=== PATIENT | female | born 1935 | race African-American/Black ===

== ENCOUNTER 2016-07-11 14:35 | Inpatient (IN) ==
[2016-07-11] MEDS ORDERED: SODIUM CHLORIDE 0.9% 500 ML IV STA (17:01)
--- NOTE | 2016-07-11 17:02 | Emergency Department Note ---
Ryley Jones Manpreet, am scribing for, and in the presence of, Humberto Devine MD 16:55. Nilson Jones Charles R, MD, personally performed the services described in this documentation, ascribed by Rashad Hedrick in my presence, and it is both accurate and complete 702 . Arrival - Arrival Chief Complaint: Altered Mental Status Stated Complaint: AMS, FTT, LETHARGIC ED Nursing Triage Note: PT SENT BY EMS FROM [facility] FOR EVALUATION OF ALTERED LOC, FAILURE TO THRIVE, AND LETHARGY. PT IS ON HOSPICE AT [facility], BUT REMAINS A FULL CODE. PT IS TAKING NOTHING BY MOUTH BUT FAMILY REQUESTS NO PEG. Mode of Arrival: Stretcher Source: EMS, Old Records Reviewed Time Seen by Provider: 07/11/16 16:01 - History of Present Illness HPI Narrative: Pt is an 80 y/o female, with PMHx of NIDDM and HTN, who was brought to ED via EMS for further evaluation for AMS and being lethargic. Pt lives at [facility] and is on hospice service. According to EMS Pt has a failure to thrive but remains full code. Pt is not taking anything by mouth but requests no PEG. Pt was alert but failed to open her mouth for examination. No other pains/ complaints reported to ED. Onset (ago): hour(s) Consistency: constant Severity: moderate Severity scale (1-10): 4 Allergies/Adverse Reactions: Allergies Allergy/AdvReac Type Severity Reaction Status Date / Time benztropine [From Cogentin] Allergy Unknown/Unable Verified 07/11/16 15:01 to obtain egg Allergy Unknown/Unable Verified 07/11/16 15:01 to obtain Home Medications: Home Medications Medication Instructions Recorded Confirmed Type Donepezil [Aricept] 10 mg PO BEDTIME 07/19/14 03/09/16 History Ferrous Sulfate 325 mg PO BID 07/19/14 03/09/16 History Memantine [Namenda] 10 mg PO BID 07/19/14 03/09/16 History Glucagon 1 mg IM PRN PRN 08/26/15 03/09/16 History Promethazine HCl [Phenergan] 25 mg PO Q8HR PRN 08/26/15 03/09/16 History Divalproex Sodium 250 mg PO TID 01/26/16 03/09/16 History Lactulose 30 ml PO BID 01/26/16 03/09/16 History Lisinopril 5 mg PO DAILY 01/26/16 03/09/16 History amLODIPine [Norvasc] 5 mg PO DAILY 01/26/16 03/09/16 History Aspirin EC Tab 325 mg PO DAILY 03/09/16 03/09/16 History Ipratropium/Albuterol Sulfate 3 ml INH QID 03/09/16 03/09/16 History [Iprat-Albut 0.5-3(2.5) mg/3 ml] Levothyroxine Sodium 100 mcg PO DAILY 03/09/16 03/09/16 History Megestrol Liquid [Megace Liquid] 400 mg PO DAILY 03/09/16 03/09/16 History Tramadol HCl [Tramadol Tab] 50 mg PO QID PRN 03/09/16 03/09/16 History Albuterol/Ipratropium Neb [Duoneb] 3 ml RESP TX RT Q6H nebulization 03/27/16 Rx solution Bacitracin Oint 1 applic TOP DAILY ointment 03/27/16 Rx Calcium (Citrate) [Citracal] 400 mg PO BID tablet 03/27/16 Rx Clindamycin Inj [Cleocin Inj] 600 mg IV Q8H premix 03/27/16 Rx Enoxaparin [Lovenox] 30 mg SUBCUT Q24H syringe 03/27/16 Rx Glucagon 1 mg IM PRN PRN #0 vial 03/27/16 Rx Haloperidol Inj [Haldol Inj] 2 mg IV Q4HR PRN #0 amp 03/27/16 Rx Levothyroxine Inj [Synthroid Inj] 50 mcg IV DAILY@0700 vial 03/27/16 Rx Metoprolol Tartrate Inj [Lopressor 5 mg IV Q4H vial 03/27/16 Rx Inj] Metoprolol Tartrate Tab [Lopressor 25 mg PO BID tablet 03/27/16 Rx Tab] Ondansetron Inj [Zofran Inj] 4 mg IV Q4H PRN #0 vial 03/27/16 Rx Pentoxifylline [TRENtal] 400 mg PO TID tablet 03/27/16 Rx Potassium Chloride Glen 10 meq IV .PER PROTOCOL PRN #0 03/27/16 Rx premix Skin Healing Oint (Aquaphor) 1 applic TOP PRN PRN #0 ointment 03/27/16 Rx [Aquaphor] Valproic Acid Inj [Depacon Inj] 250 mg IV Q8H vial 03/27/16 Rx amLODIPine [Norvasc] 5 mg PO DAILY tablet 03/27/16 Rx cloNIDine 0.2 MG/24 HR PATCH 1 patch TRANSDERM Q7DAY patch 03/27/16 Rx [Llpekuei-TDJ-1 Patch] oxyCODONE/ACETAMINOPHEN 5-325 1 tablet PO Q6H PRN #0 tablet 03/27/16 Rx [Percocet 5-325] Review of System - Review of System 12 point system: reviewed and no additional remarkable complaints except as stated - Review of System Constitutional: Present: weakness. Absent: chills, diaphoresis, fever Respiratory: Absent: cough, respiratory distress Cardiovascular: Absent: chest pain Gastrointestinal: Absent: abdominal pain, nausea Neurological: Present: confusion. Absent: headache, weakness Medical,Surgical,& Family Hx - Medical History Cardio: History of: Hypertension Psychological: History of: Bipolar Disorder Neurology: History of: Peripheral Neuropathy Endocrine: History of: Diabetes Mellitus (NIDDM) Respiratory: No history of: Asthma, Bronchitis, COPD, Intubation, Obstructive Sleep Apnea , Pulmonary Embolism, Pulmonary Hypertension, Lung Cancer Renal: History of: Renal Problems (past episode of renal failure from dehydration) Musculoskeletal: History of: Musculoskeletal Problems (weakness; bed bound patient) Hematology: History of: Anemia Other: History of: Skin Problems (skin wounds to feet) - Surgical History Cardiac Surgeries: Patient Denies: Vascular Access Devices Thoracic Surgeries: Patient denies;: Organ Transplant, Lobectomy Neurologic Surgeries: Patient denies: Neurologic Surgery Abdominal Surgeries: Patient denies: Hernia Repair - Family History Family History: Reports;: Family Diabetes, Family Hypertension - Social History Smoking Status: Unknown if ever smoked Frequency of Alcohol Use: None Type of Drug Use: None Exam Vital Signs: Vital Signs Temperature 97.1 F L 07/11/16 14:35 Pulse Rate 89 07/11/16 18:30 Respiratory Rate 16 07/11/16 18:30 Blood Pressure 100/74 07/11/16 18:30 O2 Sat by Pulse Oximetry 100 07/11/16 18:30 - General General appearance: alert - Head Head exam: Present: atraumatic, other (Biateral temporal wasting). Absent: normocephalic, normal inspection - Eye Eye exam: Present: normal appearance, PERRL, EOMI - ENT ENT exam: Present: normal exam, normal oropharynx - Neck Neck exam: Present: normal inspection, full ROM. Absent: trachea midline, thyromegaly - Chest Chest inspection: Present: normal inspection, symmetric chest wall rise - Respiratory Respiratory exam: Present: rhonchi. Absent: normal lung sounds bilaterally - Cardiovascular Cardiovascular exam: Present: normal rhythm, tachycardia, normal heart sounds. Absent: murmur, rubs, gallop - Abdominal Exam Abdominal exam: Present: soft. Absent: distention, tenderness, guarding - Extremities Exam Extremities exam: Present: calf tenderness, other (General atrophy). Absent: normal inspection - Back Exam Back exam: Present: normal inspection, full ROM. Absent: tenderness - Neurological Exam Neurological exam: Present: alert. Absent: oriented X3, CN II-XII intact - Skin Skin exam: Present: dry, intact, other (Poor skin turgor) Course - Consultations Consultation #1: Hospitalist will admit patient Time: 18:58 Results - Labs CBC & BMP: 07/11/16 16:23 07/11/16 16:23 Lab Results: I have reviewed the patients labs Labs: Laboratory Tests 07/11/16 07/11/16 07/11/16 16:23 16:23 16:23 WBC 13.4 H MCHC 29.4 L RDW 17.9 H MPV 12.9 H Neut # (Auto) 8.1 H [place] # (Auto) 1.2 H Segmented Neutrophils 46 L Band Neutrophils 11 H INR 1.2 PT Patient/Control Mix 12.5 Sodium 171 H* Potassium 6.1 H* Chloride 130 H Anion Gap 15.1 H BUN 148 H Creatinine 5.10 H BUN/Creatinine Ratio 29.00 H Glucose 241 H Calculated Osmolality 392.1 H Lactic Acid Calcium 12.1 H Magnesium 3.6 H ALT < 9 L Alkaline Phosphatase 121 H Globulin 4.2 H Albumin/Globulin Ratio 0.8 L Urine pH Ur Specific [place] Urine Protein Urine Ketones Urine Urobilinogen Urine RBC Urine WBC Hyaline Casts 07/11/16 07/11/16 16:23 17:07 WBC MCHC RDW MPV Neut # (Auto) [place] # (Auto) Segmented Neutrophils Band Neutrophils INR PT Patient/Control Mix Sodium Potassium Chloride Anion Gap BUN Creatinine BUN/Creatinine Ratio Glucose Calculated Osmolality Lactic Acid 4.6 H Calcium Magnesium ALT Alkaline Phosphatase Globulin Albumin/Globulin Ratio Urine pH 5.0 Ur Specific [place] 1.021 Urine Protein 30 Urine Ketones 5 Urine Urobilinogen < 2.0 H Urine RBC 1 Urine WBC 2 Hyaline Casts 3 - Diagnostic Findings Procedure: Chest x-ray: report reviewed by me (1. Appearance of chest compatible with improved congestive heart failure and pulmonary edema. No active process is clearly demonstrated.), CT: report reviewed by me (CT Head w/ o IV Con: [address] evidence of acute intracranial pathology. Interval progression of cerebral atrophy is suggested when compared to the prior study.) Critical Care Time Critical Care Time: Yes Total Critical Care Time: 60 Disposition Clinical Impression: Altered mental status, Dementia, Hyperkalemia, Diabetes, PVD (peripheral vascular disease), Acute dehydration, Hypernatremia, Debility, Acute renal failure, Failure to thrive, Anorexia, Diabetic foot ulcers Case discussed with: patient Disposition: Still a Patient Condition: Critical Time of Disposition: 18:58
[2016-07-11 17:11] LABS: Basophils % 0.1 % (0.0-0.8); Hemoglobin 12.6 GM/DL (12.0-16.0); Mean Platelet Volume 12.9 FL (9.6-12.0); Red Cell Distribution Width 17.9 % (9.3-17.3); White Blood Count 13.4 T/CUMM (4-12)
[2016-07-11 17:15] LABS: INR 1.2; PT Patient Result 12.5 SECS
--- NOTE | 2016-07-11 17:23 | CT Report ---
CT head/brain wo con Indication: Altered mental status Comparison: Head CT 07/19/2014. Technique: CT of the brain was performed without administration of intravenous contrast. The CT examination was performed using one or more of the following dose reduction techniques: Automatic exposure control, adjustment of the mA and kV according to patient size, use of acute or iterative reconstruction techniques. Findings: There is no evidence of acute intracranial mass, hemorrhage, or infarction. Generalized cerebral atrophy is present. Areas of decreased attenuation within the periventricular white matter and cerebral white matter are present which could be compatible with microvascular ischemia. The basal cisterns are patent. No significant abnormality is demonstrated to involve the posterior fossa or cerebellum. Orbits and globes demonstrate no evidence of significant pathology. The paranasal sinuses are clear. No significant abnormality is demonstrated to involve the mastoid air cells. The calvarium and overlying soft tissues demonstrate no evidence of acute pathology. Impression: 1. No CT evidence of acute intracranial pathology. Interval progression of cerebral atrophy is suggested when compared to the prior study. 07/11/2016 5:20 PM PROCEDURE INTERPRETED AT [facility] DEPARTMENT OF RADIOLOGY Final Report Signed by: Dr. Nacho Green
[2016-07-11 17:24] LABS: Alanine Aminotransferase < 9 U/L (13-56); Albumin 3.7 G/DL (3.4-5.0); Alkaline Phosphatase 121 U/L (45-117); Aspartate Amino Transferase 22 U/L (0-37); Bilirubin,Total < 0.39 MG/DL (0.2-1.0); Blood Urea Nitrogen 148 MG/DL (7-18); Calcium 12.1 MG/DL (8.5-10.1); Glucose 241 MG/DL (74-106); Magnesium 3.6 MG/DL (1.8-2.4); Osmolality,Calculated 392.1 MOS/KG (273-304); Total Protein 7.9 G/DL (6.4-8.3); Troponin I Only 0.021 NG/ML (0.00-0.045)
--- NOTE | 2016-07-11 17:25 | XRay Report ---
XR chest 1V portable Indication: Altered mental status. Comparison: Chest x-ray 03/27/2016 Technique: Portable AP chest was performed. Findings: The heart size appears within normal limits. Pulmonary vasculature demonstrates no specific abnormality. Hilar structures demonstrate fairly symmetric appearance. The lungs are clear. Elevation right hemidiaphragm and stable. Bones and soft tissues demonstrate no evidence of acute pathology. Impression: 1. Appearance of the chest compatible with improved congestive heart failure and pulmonary edema. No active process is clearly demonstrated. 07/11/2016 5:22 PM PROCEDURE INTERPRETED AT [facility] DEPARTMENT OF RADIOLOGY Final Report Signed by: Dr. Nacho Green
[2016-07-11 17:30] LABS: Ammonia 18 UMOL/L (11-32)
[2016-07-11 17:31] LABS: Hematocrit 42.8 VOL% (35.7-47.0); Immature Granulocytes % 1.2 %; Immature Granulocytes Absolute 0.16 #; Lymphocytes # 3.9 10*3/uL (1.4-4.0); Lymphocytes % 29.1 % (21.3-54.2); Mean Corpuscular HGB Conc 29.4 GM/DL (32-36); Mean Corpuscular Hemoglobin 29 PG (27-34); Mean Corpuscular Volume 98.6 FL (87-102); Monocytes # 1.2 10*3/uL (0.11-0.8); Monocytes % 8.8 % (1.7-12.7); NRBC # 0.68 10*3/uL; Neutrophils # 8.1 10*3/uL (1.4-7.4); Neutrophils % 60.8 % (38.7-73.9); Platelet Count 172 T/CUMM (130-400); Red Blood Count 4.34 MC/CUMM (3.8-5.5)
[2016-07-11 17:43] LABS: Potassium 6.1 MMOL/L (3.5-5.1); Sodium 171 MMOL/L (136-145)
--- NOTE | 2016-07-11 17:44 | EKG Report ---
Stationary ECG Study [facility] ER Test Date: 07/11/2016 5:41:56 PM Pat Name: ERICK LOPEZ Department: Room: Gender: F Auxiliary Equipment Operator: RAIZA Montes : 1935 Requested by: Humberto Arriaza Order Number: [id number] Reading MD: ANGEL BASS Intervals [place] Rate: 87 P: 42 CO: 88 QRS: 68 QRSD: 89 T: 256 QT: 383 QTc: 428 Interpretive Statements SINUS RHYTHM WITH SHORT CO INTERVAL At [address] DEVIATION AND MODERATE T-WAVE ABNORMALITY, CONSIDER ISCHEMIA Electronically Signed On 07-12-16 12:27:36 CDT by ANGEL BASS [email or web address]
[2016-07-11 17:57] LABS: Band Neutrophils 11 % (0-10); Lymphocytes 38 % (20-55); Nucleated Red Blood Cells 3 (0-5); Platelet Estimate Adequate; Segmented Neutrophils 46 % (50-85); Total Cells Counted 100
[2016-07-11 18:04] LABS: Apearance,Urine Slightly Hazy (Clear); Bilirubin,Urine Negative (Negative); Blood, Urine Negative (Negative); Glucose,Urine (UA) Negative (Negative); Hyaline Casts,Urine 3 /LPF (0-3); Ketones,Urine 5 mg/dL (Negative); Nitrite,Urine Negative (Negative); Protein,Urine 30 MG/DL; RBC,Urine 1 /HPF (0-4); Squamous Epithelial Cell,Urine Occasional /HPF (0-10); Urine Color Yellow (Yellow); Urine Specific Gravity 1.021 (1.001-1.035); Urine Urobilinogen < 2.0 EU/DL (0.2-1.0); WBC,Urine 2 /HPF (0-6)
[2016-07-11] MEDS ORDERED: INSULIN REGULAR 100 UNIT/ML IV STA (19:31)
[2016-07-11] MEDS ORDERED: SODIUM POLYSTYRENE SULFATE 15 GM/60 ML BOTTLE PO ONE (19:31)
[2016-07-11] MEDS ORDERED: GLUCAGON 1 MG VIAL IM PRN (19:35)
--- NOTE | 2016-07-11 19:38 | Hospitalist History & Physical ---
Assessment and Plan (1) Acute on chronic renal failure Status: Acute Assessment and plan: severe dehydration D5W Current Visit: Yes (2) Diabetes Status: Chronic Assessment and plan: isc Current Visit: Yes Qualifiers: Diabetes mellitus type: type 2 Diabetes mellitus complication status: with circulatory complication Diabetes mellitus complication detail: with peripheral angiopathy without gangrene Diabetes mellitus human resources hr representative insulin use : with human resources hr representative use Qualified Code(s): E11.51 - Type 2 diabetes mellitus with diabetic peripheral angiopathy without gangrene; Z79.4 - retail and restaurant (current ) use of insulin (3) Hypothyroidism Status: Chronic Assessment and plan: levothyroxine Current Visit: No Qualifiers: Hypothyroidism type: acquired Qualified Code(s): E03.9 - Hypothyroidism, unspecified (4) Hyperkalemia Status: Acute Assessment and plan: kayexalate, calcium gluconate, IV insulin monitor potassium Current Visit: Yes (5) PVD (peripheral vascular disease) Status: Acute Assessment and plan: not a candidate for any intervention Current Visit: Yes (6) Anorexia Status: Chronic Current Visit: No (7) Dementia Status: Acute Assessment and plan: aricept Current Visit: Yes (8) Hypernatremia Status: Acute Current Visit: Yes (9) Failure to thrive Status: Acute Assessment and plan: family refuses peg tube instead they want to keep her full code and not feed her. Current Visit: Yes (10) Hypotension Status: Acute Assessment and plan: low blood pressure due to severe dehydration, despite elevated lactic acid, this is not septic shock, patient cannot tolerate high amounts of fluid. Current Visit: Yes History of Present Illness Chief complaint: ams History of present illness: Ms. Olea is a 80 year old female with PMHx of NIDDM, dementia, chronic renal failure, PVD and HTN, who was brought to ED via EMS for further evaluation for AMS and being lethargic. Pt lives at [facility] and is on hospice service. According to EMS Pt has a failure to thrive but remains full code. Pt is not taking anything by mouth but requests no PEG. Pt was alert but failed to open her mouth for examination. No other pains/complaints reported to ED. No family is available for questions. Patient unable to answer any questions and has severe dementia, no decubitus but has some clean pressure ulcers on her feet Home Medications Medication Instructions Recorded Confirmed Type Donepezil [Aricept] 10 mg PO BEDTIME 07/19/14 03/09/16 History Ferrous Sulfate 325 mg PO BID 07/19/14 03/09/16 History Memantine [Namenda] 10 mg PO BID 07/19/14 03/09/16 History Glucagon 1 mg IM PRN PRN 08/26/15 03/09/16 History Promethazine HCl [Phenergan] 25 mg PO Q8HR PRN 08/26/15 03/09/16 History Divalproex Sodium 250 mg PO TID 01/26/16 03/09/16 History Lactulose 30 ml PO BID 01/26/16 03/09/16 History Lisinopril 5 mg PO DAILY 01/26/16 03/09/16 History amLODIPine [Norvasc] 5 mg PO DAILY 01/26/16 03/09/16 History Aspirin EC Tab 325 mg PO DAILY 03/09/16 03/09/16 History Ipratropium/Albuterol Sulfate 3 ml INH QID 03/09/16 03/09/16 History [Iprat-Albut 0.5-3(2.5) mg/3 ml] Levothyroxine Sodium 100 mcg PO DAILY 03/09/16 03/09/16 History Megestrol Liquid [Megace Liquid] 400 mg PO DAILY 03/09/16 03/09/16 History Tramadol HCl [Tramadol Tab] 50 mg PO QID PRN 03/09/16 03/09/16 History Albuterol/Ipratropium Neb [Duoneb] 3 ml RESP TX RT Q6H nebulization 03/27/16 Rx solution Bacitracin Oint 1 applic TOP DAILY ointment 03/27/16 Rx Calcium (Citrate) [Citracal] 400 mg PO BID tablet 03/27/16 Rx Clindamycin Inj [Cleocin Inj] 600 mg IV Q8H premix 03/27/16 Rx Enoxaparin [Lovenox] 30 mg SUBCUT Q24H syringe 03/27/16 Rx Glucagon 1 mg IM PRN PRN #0 vial 03/27/16 Rx Haloperidol Inj [Haldol Inj] 2 mg IV Q4HR PRN #0 amp 03/27/16 Rx Levothyroxine Inj [Synthroid Inj] 50 mcg IV DAILY@0700 vial 03/27/16 Rx Metoprolol Tartrate Inj [Lopressor 5 mg IV Q4H vial 03/27/16 Rx Inj] Metoprolol Tartrate Tab [Lopressor 25 mg PO BID tablet 03/27/16 Rx Tab] Ondansetron Inj [Zofran Inj] 4 mg IV Q4H PRN #0 vial 03/27/16 Rx Pentoxifylline [TRENtal] 400 mg PO TID tablet 03/27/16 Rx Potassium Chloride Glen 10 meq IV .PER PROTOCOL PRN #0 03/27/16 Rx premix Skin Healing Oint (Aquaphor) 1 applic TOP PRN PRN #0 ointment 03/27/16 Rx [Aquaphor] Valproic Acid Inj [Depacon Inj] 250 mg IV Q8H vial 03/27/16 Rx amLODIPine [Norvasc] 5 mg PO DAILY tablet 03/27/16 Rx cloNIDine 0.2 MG/24 HR PATCH 1 patch TRANSDERM Q7DAY patch 03/27/16 Rx [Vxtlivhq-ABH-1 Patch] oxyCODONE/ACETAMINOPHEN 5-325 1 tablet PO Q6H PRN #0 tablet 03/27/16 Rx [Percocet 5-325] Allergies Allergy/AdvReac Type Severity Reaction Status Date / Time benztropine [From Cogentin] Allergy Unknown/Unable Verified 07/11/16 15:01 to obtain egg Allergy Unknown/Unable Verified 07/11/16 15:01 to obtain Medical,Surgical,& Family Hx - Medical History Cardio: History of: Hypertension Psychological: History of: Bipolar Disorder Neurology: History of: Peripheral Neuropathy, Seizures Endocrine: History of: Diabetes Mellitus (NIDDM), Thyroid Disorder Respiratory: No history of: Asthma, Bronchitis, COPD, Intubation, Obstructive Sleep Apnea , Pulmonary Embolism, Pulmonary Hypertension, Lung Cancer Renal: History of: Renal Problems (past episode of renal failure from dehydration) Musculoskeletal: History of: Musculoskeletal Problems (weakness; bed bound patient) Hematology: History of: Anemia Other: History of: Skin Problems (skin wounds to feet), Miscellaneous Medical Problems (anemia/diabetic ulcer left foot) - Surgical History Cardiac Surgeries: Patient Denies: Vascular Access Devices Thoracic Surgeries: Patient denies;: Organ Transplant, Lobectomy Neurologic Surgeries: Patient denies: Neurologic Surgery Abdominal Surgeries: Patient denies: Hernia Repair - Family History Family History: Reports;: Family Diabetes, Family Hypertension - Social History Smoking Status: Unknown if ever smoked Frequency of Alcohol Use: None Type of Drug Use: None Marital Status: Single Lives With:: Alone Functional capacity: bed bound ROS unobtainable: due to dementia Exam - Constitutional General appearance: mild distress, under weight - Head Head exam: Present: normal inspection, normocephalic - Eye Eye exam: Present: EOMI Pupils: Present: CLEMENT - ENT ENT exam: Present: normal exam, normal external ear exam - Neck Neck exam: Absent: lymphadenopathy, thyromegaly - Respiratory Respiratory exam: Present: clear to auscultation bilaterally. Absent: rhonchi, wheezes - Cardiovascular Cardiovascular exam: Present: tachycardia - GI/Abdominal GI/Abdominal exam: Present: normal bowel sounds, soft, other (cachetic ). Absent: tenderness - Extremities Exam Extremities exam: Present: other (poor cap refill ). Absent: edema - Neurological Exam Neurological exam: Present: altered - Psychiatric Psychiatric exam: Present: depressed, flat affect - Skin Skin exam: Present: other (wounds on bilateral feet due to pressure ulcers ) Results - Labs CBC & BMP: 07/11/16 16:23 07/11/16 16:23 Labs: ua negative for infection, blood cx times two - EKG EKG shows: sinus rhythm (diffuse t wave inversion) - Diagnostic Findings Procedure: Chest x-ray: report reviewed by me (nothing acute )
[2016-07-11] MEDS ORDERED: CALCIUM GLUCONATE 2,000 MG in SODIUM CHLORIDE 0.9% 100 ML IV ONE (20:00)
[2016-07-11] MEDS ORDERED: ONDANSETRON 4 MG/2 ML VIAL IV PRN (20:25)
[2016-07-11] MEDS ORDERED: ACETAMINOPHEN 325 MG TABLET PO PRN (20:25)
[2016-07-11] MEDS: DEXTROSE 5% 1,000 ML IV SCH (22:00)
--- NOTE | 2016-07-11 22:12 | Event Note ---
After informed consent further a triple-lumen catheter was obtained I attempted to place an right I J catheter. Multiple attempts were made ultrasound was used but I never was able to place the catheter in the IJ. After approximately 20 minutes of working with the patient I decided it was in her best interest to stop. I have instructed the nursing staff to see if that he get a peripheral IV and let the attending doctor know at 7 AM that IV access is a problem.
[2016-07-12] MEDS: INSULIN LISPRO 100 UNIT/ML SUBCUT SCH ×4 (02:12→17:55)
[2016-07-12] MEDS: LEVOTHYROXINE 25 MCG TABLET PO SCH (06:24)
[2016-07-12] MEDS: DEXTROSE 50% 25 GM/50 ML VIAL IV PRN ×3 (07:40→20:09)
--- NOTE | 2016-07-12 08:08 | Hospitalist Progress Note ---
Hospitalist: Subjective Interval history: Pt awake and talking a few words. No fever. Unable to get a central line. Pt denies pain. BP better. +BM overnight Exam - Constitutional Vitals: Period Temp Pulse Resp BP Sys/Garcia Pulse Ox Last 24 Hr 97.3 F-98.4 F 81-95 15-26 89-136/52-87 92-100 Exam: awake, alert, cachetic, chronically ill appearing RRR no M CTAB nonlabored Soft, NT, ND, +BS Warm no c/c/e, atrophied limbs Results - Labs CBC & BMP: 07/12/16 07:33 07/12/16 07:33 - Impressions (1) Acute on chronic renal failure due to severe dehydration Status: Acute Assessment and plan: Cont D5W Current Visit: Yes (2) Diabetes mellitus type 2 Status: Chronic Assessment and plan: Insulin sliding scale. accuchecks ac,hs Current Visit: Yes Qualifiers: Diabetes mellitus type: type 2 Diabetes mellitus complication status: with circulatory complication Diabetes mellitus complication detail: with peripheral angiopathy without gangrene Diabetes mellitus terminal operator insulin use : with terminal operator use Qualified Code(s): E11.51 - Type 2 diabetes mellitus with diabetic peripheral angiopathy without gangrene; Z79.4 - nursing home (current ) use of insulin (3) Hypothyroidism Status: Chronic Assessment and plan: on levothyroxine Current Visit: No Qualifiers: Hypothyroidism type: acquired Qualified Code(s): E03.9 - Hypothyroidism, unspecified (4) Hyperkalemia Status: Acute Assessment and plan: s/p kayexalate, calcium gluconate, IV insulin. monitor potassium. repeat kayexalate and recheck in 6 hours. Current Visit: Yes (5) PVD (peripheral vascular disease) Status: Acute Assessment and plan: not a candidate for any intervention Current Visit: Yes (6) Anorexia likely due to end stage dementia Status: Chronic Current Visit: No (7) Dementia presumed Alzheimer's disease Status: Acute Assessment and plan: aricept Current Visit: Yes (8) Hypernatremia Status: Acute Current Visit: Yes - due to anorexia from dementia. Pt has declined PEG. Cont D5W and add free water replacement via NGT (9) Failure to thrive Status: Acute Assessment and plan: family refused peg tube in the past. I discussed with daughter that I believe this is a result of her dementia which is irreversible. I understand she came from [facility]. After discussion with daughter re: changing code status, she expresses understanding and "does not want her to hurt" in case of cardiorespiratory decline. Will change her to code status to DNR per daughter's request. Current Visit: Yes (10) Hypotension- resolved Status: Acute Assessment and plan: low blood pressure due to severe dehydration, despite elevated lactic acid, this is not septic shock, patient cannot tolerate high amounts of fluid. Current Visit: Yes When K is improved, we could transfer to floor with telemetry. 48 minutes with this patient. D/W daughter, nurse and pt. All questions answered. Daughter states she is coming at 10AM. Pt now DNR. Transfer to floor once K less than 5
[2016-07-12 08:09] LABS: Basophils % 0.2 % (0.0-0.8); Hematocrit 38.3 VOL% (35.7-47.0); Hemoglobin 10.8 GM/DL (12.0-16.0); Immature Granulocytes % 2.5 %; Immature Granulocytes Absolute 0.37 #; Lymphocytes # 3.3 10*3/uL (1.4-4.0); Lymphocytes % 22.4 % (21.3-54.2); Mean Corpuscular HGB Conc 28.2 GM/DL (32-36); Mean Corpuscular Hemoglobin 28 PG (27-34); Mean Corpuscular Volume 100.5 FL (87-102); Mean Platelet Volume 13.1 FL (9.6-12.0); Monocytes # 1.3 10*3/uL (0.11-0.8); Monocytes % 8.8 % (1.7-12.7); NRBC # 0.91 10*3/uL; Neutrophils # 9.8 10*3/uL (1.4-7.4); Neutrophils % 66.1 % (38.7-73.9); Platelet Count 162 T/CUMM (130-400); Red Blood Count 3.81 MC/CUMM (3.8-5.5); Red Cell Distribution Width 18.2 % (9.3-17.3); White Blood Count 14.9 T/CUMM (4-12)
[2016-07-12 08:16] LABS: Calcium 11.9 MG/DL (8.5-10.1); Osmolality,Calculated 391.2 MOS/KG (273-304); Potassium 5.9 MMOL/L (3.5-5.1)
[2016-07-12 08:35] LABS: Band Neutrophils 10 % (0-10); Hypochromasia 1+; Lymphocytes 31 % (20-55); Metamyelocytes 6 %; Myelocytes 1 %; Nucleated Red Blood Cells 15 (0-5); Segmented Neutrophils 44 % (50-85); Total Cells Counted 100
[2016-07-12 08:36] LABS: Macrocytosis Slight; Platelet Estimate Adequate
[2016-07-12] MEDS ORDERED: SODIUM POLYSTYRENE SULFATE 15 GM/60 ML BOTTLE PO ONE (08:46)
[2016-07-12] MEDS: PANTOPRAZOLE 40 MG TABLET PO SCH (09:30)
[2016-07-12] MEDS: DESITIN 4OZ/NYSTATIN 15 GRAM MIXTURE PASTE TOP SCH ×2 (10:51→20:47)
[2016-07-12 11:52] LABS: Calcium 11.4 MG/DL (8.5-10.1); Magnesium 3.2 MG/DL (1.8-2.4); Osmolality,Calculated 385.8 MOS/KG (273-304); Potassium 5.4 MMOL/L (3.5-5.1)
[2016-07-12] MEDS: DEXTROSE 5% 1,000 ML IV SCH (12:43)
[2016-07-12 17:39] LABS: Magnesium 3.2 MG/DL (1.8-2.4); Osmolality,Calculated 375.2 MOS/KG (273-304)
--- NOTE | 2016-07-12 19:22 | ECHO Report ---
Vickie Olea Exam Date: 07/12/2016 08:37 Referring Physician: Technologist: Shelli Lugo Age: 80 Ht (in): 64 Wt (lb): 100 Gender: F Exam Location: [facility] Echo Indications: diabetic, hyperkalemia, PVD, Acute renal failure, hypotension, chronic renal failure BP: 121 / 60 HR: 90 Rhythm: Sinus Technical Quality: IMPRESSIONS The left ventricle is small in size, with mild concentric hypertrophy, with normal systolic function. Estimated left ventricular ejection fraction 60%. Grade 1 diastolic dysfunction. Mildly thickened mitral valve with mild mitral regurgitation. Aortic valve sclerosis without stenosis or regurgitation. Mild pulmonary hypertension. MEASUREMENTS (Male / Female) Normal Values 2D ECHO LV Diastolic Diameter PLAX 3.2 cm 4.2 - 5.9 / 3.9 - 5.3 cm LV Systolic Diameter PLAX 2.7 cm LV Fractional Shortening PLAX 13.6 % IVS Diastolic Thickness 1.4 cm 0.6 - 1.0 / 0.6 - 0.9 cm LVPW Diastolic Thickness 1.1 cm 0.6 - 1.0 / 0.6 - 0.9 cm RV Internal Dim ED PLAX 2.6 cm Aortic Root Diameter 2.6 cm LA Systolic Diameter LX 2.4 cm 3.0 - 4.0 / 2.7 - 3.8 cm DOPPLER TR Peak Velocity 286.0 cm/s TR Peak Gradient 32.7 mmHg FINDINGS Left Ventricle The left ventricle is small in size, with mild concentric hypertrophy, with normal systolic function. Estimated left ventricular ejection fraction 60%. Grade 1 diastolic dysfunction. Right Ventricle Normal right ventricular size. Right Atrium Normal right atrial size. Left Atrium Normal left atrial size. Mitral Valve Mildly thickened mitral valve with mild mitral regurgitation. Aortic Valve Aortic valve sclerosis without stenosis or regurgitation. Tricuspid Valve Morphologically normal tricuspid valve. Mild tricuspid valve regurgitation. Tricuspid regurgitation velocities suggest a PAP of 43 mmHg. Pulmonic Valve Pulmonic valve not well visualized. Pericardium No pericardial effusion. Aorta Normal size aortic root and proximal ascending aorta. Yunior Purdy (Electronically Signed) Final Date: 12 Jul 2016 19:20
[2016-07-12] MEDS: ENOXAPARIN 30 MG/0.3 ML SYRINGE SUBCUT SCH ×2 (20:46)
[2016-07-12 21:30] LABS: Calcium 9.8 MG/DL (8.5-10.1); Magnesium 2.8 MG/DL (1.8-2.4); Osmolality,Calculated 373.4 MOS/KG (273-304); Potassium 4.8 MMOL/L (3.5-5.1)
[2016-07-13] MEDS: INSULIN LISPRO 100 UNIT/ML SUBCUT SCH ×4 (00:08→18:32)
[2016-07-13] MEDS: DEXTROSE 5% 1,000 ML IV SCH ×2 (01:20→15:05)
[2016-07-13] MEDS: LEVOTHYROXINE 25 MCG TABLET PO SCH (06:41)
[2016-07-13 06:46] LABS: Basophils % 0.2 % (0.0-0.8); Hematocrit 29.3 VOL% (35.7-47.0); Hemoglobin 8.7 GM/DL (12.0-16.0); Immature Granulocytes % 3.1 %; Lymphocytes # 2.7 10*3/uL (1.4-4.0); Lymphocytes % 20.4 % (21.3-54.2); Mean Corpuscular HGB Conc 29.7 GM/DL (32-36); Mean Corpuscular Hemoglobin 29 PG (27-34); Mean Corpuscular Volume 96.1 FL (87-102); Mean Platelet Volume 12.7 FL (9.6-12.0); Monocytes # 1.1 10*3/uL (0.11-0.8); Monocytes % 8.4 % (1.7-12.7); NRBC # 0.44 10*3/uL; Neutrophils # 8.9 10*3/uL (1.4-7.4); Neutrophils % 67.9 % (38.7-73.9); Platelet Count 103 T/CUMM (130-400); Red Blood Count 3.05 MC/CUMM (3.8-5.5); Red Cell Distribution Width 17.3 % (9.3-17.3)
[2016-07-13 07:26] LABS: Calcium 9.7 MG/DL (8.5-10.1); Osmolality,Calculated 347.1 MOS/KG (273-304); Potassium 4.3 MMOL/L (3.5-5.1)
[2016-07-13] MEDS: PANTOPRAZOLE 40 MG TABLET PO SCH (09:08)
[2016-07-13] MEDS: DESITIN 4OZ/NYSTATIN 15 GRAM MIXTURE PASTE TOP SCH ×2 (09:09→21:48)
[2016-07-13] MEDS: PANTOPRAZOLE 40 MG VIAL IV SCH (09:51)
[2016-07-13 10:36] LABS: Allen Test Positive
[2016-07-13 10:37] LABS: ABG Base Excess 3.6 MMOL/L (-2.5-2.5); ABG HCO3 27.6 MMOL/L (20-26); ABG Oxygen Saturation 89.8 % (95-100); ABG PCO2 47.7 MM HG (35-48); ABG PH 7.393 (7.35-7.45); ABG PO2 57.4 MM HG (80-95); ABG TCO2 27.3 MMOL/L (23-27)
--- NOTE | 2016-07-13 12:15 | Hospitalist Progress Note ---
Hospitalist: Subjective Interval history: Patient resting comfortably overnight. She had some hypoglycemia which improved with orange juice via the feeding tube. No fever. Minimal urine output. Awaiting speech therapy evaluation to determine if she is able to eat and what consistency of diet. Exam - Constitutional Vitals: Period Temp Pulse Resp BP Sys/Garcia Pulse Ox Last 24 Hr 96.8 F-98.7 F 66-99 13-24 88-145/35-86 91-100 Exam: cachetic, chronically ill appearing, resting comfortably in no acute distress RRR no M CTAB nonlabored Soft, NT, ND, +BS Warm no c/c/e, atrophied limbs Results - Labs CBC & BMP: 07/13/16 04:00 07/13/16 06:50 Labs: blood cultures- NGTD - Impressions (1) Acute on chronic renal failure due to severe dehydration- this may just be CKD stage 5 Status: Acute Assessment and plan: Cont D5W. Check renal u/s Current Visit: Yes (2) Diabetes mellitus type 2 Status: Chronic Assessment and plan: Insulin sliding scale. accuchecks ac,hs Current Visit: Yes Qualifiers: Diabetes mellitus type: type 2 Diabetes mellitus complication status: with circulatory complication Diabetes mellitus complication detail: with peripheral angiopathy without gangrene Diabetes mellitus terminal press operator insulin use : with terminal press operator use Qualified Code(s): E11.51 - Type 2 diabetes mellitus with diabetic peripheral angiopathy without gangrene; Z79.4 - nursing home (current ) use of insulin (3) Hypothyroidism Status: Chronic Assessment and plan: on levothyroxine Current Visit: No Qualifiers: Hypothyroidism type: acquired Qualified Code(s): E03.9 - Hypothyroidism, unspecified (4) Hyperkalemia Status: Resolved Assessment and plan: s/p kayexalate, calcium gluconate, IV insulin. 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 Start diet pending those results (7) Dementia presumed Alzheimer's disease Status: Acute Assessment and plan: - Cont Aricept Current Visit: Yes (8) Hypernatremia Status: Acute Current Visit: Yes - due to anorexia from dementia. Pt has declined PEG. Cont D5W and add free water replacement via NGT (9) Failure to thrive Status: Acute Assessment and plan: family refused peg tube in the past. I discussed with daughter that I believe this is a result of her dementia which is irreversible. I understand she came from [facility]. After discussion with daughter re: changing code status, she expresses understanding and "does not want her to hurt" in case of cardiorespiratory decline. Will change her to code status to DNR per daughter's request. Current Visit: Yes (10) Hypotension- resolved Status: Acute Assessment and plan: low blood pressure due to severe dehydration, despite elevated lactic acid, this is not septic shock, patient cannot tolerate high amounts of fluid. Current Visit: Yes Order for transfer written 07/12 but pt still in unit due to lack of beds. Awaiting transfer. Left message for cousin listed on chart. I called daughter but was unable to leave a message. D/W nurse and pt. All questions answered. Pt is DNR. I suspect dc in the next couple of days pending speech eval.
--- NOTE | 2016-07-13 14:07 | Ultrasound Report ---
Exam: US renal Bilateral Date: 07/13/2016 11:13 AM Comparison: 01/26/2016 Indication: Elevated creatinine Technique:[Multiple transabdominal real-time scans were obtained of the kidneys. Color flow scans obtained. Ultrasound images were captured and stored.] Findings: Right kidney measures 77 x 43 x 32 mm compared to 67 x 37 x 34 mm. Left kidney measures 87 x 18 x 39 mm compared to 84 x 53 x 43 mm. 15 mm simple appearing left midpole renal cyst. Color flow documented in the kidneys with no hydronephrosis. More hypoechoic renal medullary pyramids. Impression: Persistent cortical loss in the kidneys, especially the right with no hydronephrosis. 15 mm simple appearing left midpole renal cyst. More hypoechoic renal medullary pyramids which can be seen with medical renal disease, etc. PROCEDURE INTERPRETED AT [facility] DEPARTMENT OF RADIOLOGY Final Report Signed by: Dr. Vickie Santana
[2016-07-14] MEDS: INSULIN LISPRO 100 UNIT/ML SUBCUT SCH ×4 (01:10→17:34)
[2016-07-14] MEDS: DEXTROSE 5% 1,000 ML IV SCH ×2 (03:03→21:00)
[2016-07-14 03:52] LABS: Basophils % 0.3 % (0.0-0.8); Eosinophils % 0.2 % (0.00-10.9); Hematocrit 23.7 VOL% (35.7-47.0); Hemoglobin 7.4 GM/DL (12.0-16.0); Lymphocytes # 1.5 10*3/uL (1.4-4.0); Lymphocytes % 16.1 % (21.3-54.2); Mean Corpuscular HGB Conc 31.2 GM/DL (32-36); Mean Corpuscular Hemoglobin 28 PG (27-34); Mean Corpuscular Volume 90.8 FL (87-102); Mean Platelet Volume 13.1 FL (9.6-12.0); Monocytes # 0.3 10*3/uL (0.11-0.8); Monocytes % 3.5 % (1.7-12.7); Neutrophils # 7.5 10*3/uL (1.4-7.4); Neutrophils % 78.9 % (38.7-73.9); Platelet Count 90 T/CUMM (130-400); Red Blood Count 2.61 MC/CUMM (3.8-5.5); Red Cell Distribution Width 16.4 % (9.3-17.3); White Blood Count 9.5 T/CUMM (4-12)
[2016-07-14 04:08] LABS: Calcium 8.2 MG/DL (8.5-10.1); Osmolality,Calculated 312.2 MOS/KG (273-304); Potassium 3.7 MMOL/L (3.5-5.1)
[2016-07-14] MEDS: LEVOTHYROXINE 25 MCG TABLET PO SCH (06:18)
[2016-07-14] MEDS: PANTOPRAZOLE 40 MG VIAL IV SCH (09:18)
[2016-07-14] MEDS: DESITIN 4OZ/NYSTATIN 15 GRAM MIXTURE PASTE TOP SCH ×2 (09:19→20:59)
[2016-07-14] MEDS ORDERED: VANCOMYCIN INJ 1,000 MG in SODIUM CHLORIDE 0.9% 250 ML IV ONE (11:19)
--- NOTE | 2016-07-14 11:27 | Hospitalist Progress Note ---
Assessment and Plan (1) Bacteremia Status: Acute Assessment and plan: Patient has staph auricularis on blood. No fevers now. Does give a dose of vancomycin and followed long-term level tomorrow morning. If is less than 15 mcg/mL redosed the patient with 1 g of vancomycin Current Visit: Yes (2) PVD (peripheral vascular disease) Status: Acute Assessment and plan: Patient is not a candidate for an intervention. We will continue to treat medically Current Visit: Yes (3) Failure to thrive Status: Acute Assessment and plan: Start tube feedings as recommended by dietitian Current Visit: Yes (4) Acute on chronic renal failure Status: Acute Assessment and plan: Creatinine is improving some but I believe this would take time with rehydration and feeding. Current Visit: Yes Hospitalist: Subjective Interval history: Patient has been seen chart has been reviewed. Patient cannot talk. Transferred to this floor from the unit. This patient I am informed was hospice and subsequently admitted to the hospital. There is a DNR on the chart but I am informed that at the snf patient was hospice but full code. I am informed patient has positive blood cultures today growing staph oricularis. Will give 1 g of vancomycin check random vancomycin level tomorrow Exam - Constitutional Vitals: Period Temp Pulse Resp BP Sys/Garcia Pulse Ox Last 24 Hr 96.0 F-98.3 F 60-78 12-28 76-132/41-81 91-100 General appearance: under weight, other (Poorly responsive and not communicating.) - Head Head exam: Present: normocephalic, atraumatic - Eye Eye exam: Present: other (I cannot assess) Pupils: Present: CLEMENT - ENT ENT exam: Present: other (Unable to assess posterior following no obvious lesions in the mouth) - Neck Neck exam: Present: other (Generalized body stiffness) - Respiratory Respiratory exam: Present: clear to auscultation bilaterally, other (Poor inspiratory pool) - GI/Abdominal GI/Abdominal exam: Present: normal bowel sounds - Extremities Exam Extremities exam: Present: full ROM, other (Patient noted to be in position) - Neurological Exam Neurological exam: Present: alert, oriented X3, CN II-XII intact - Psychiatric Psychiatric exam: Present: normal affect - Skin Skin exam: Present: normal color, warm, dry Results - Labs CBC & BMP: 07/14/16 03:05 07/14/16 03:05 Lab Results: I have reviewed the past 24 hour labs (Blood cultures reporting staph oricularis)
--- NOTE | 2016-07-14 14:53 | Physician Query Form ---
CLICK EDIT DOCUMENT TO SELECT QUERY ANSWER --> OK --> SIGN Dayanara Bob RN, CCDS Certified Clinical Spinning Frame Fixer W) [phone] (f) [phone] [email or web address] PROVIDERS: Make your selection(s) from the choices in EACH section by typing an "x" and enter comments in the comment section. Please use your independent medical judgment in providing your response. This request does not imply that any particular answer is desired or expected. CLINICAL INDICATORS: (Providers should not edit this section) Height: 5'4 Weight: 94 lbs Sales Lead BMI: 13.4 Nutritional supplements: Boost with all meals, nutrition supplement trial General Medical Practitioner notes: underweight, bedbound, family refuses PEG, poor appetite, dementia, loss of 33%of body weight over last 4 months, loss of fat and muscle mass Based on the above, which following choice most accurately represents the patient's nutritional status? ( ) Malnutrition ( ) mild ( ) moderate ( ) severe ( x) Protein calorie malnutrition ( ) mild ( ) moderate ( x) severe ( ) Emaciation due to malnutrition ( ) Nutritional marasmus ( ) Cachexia ( ) Underweight ( ) No nutritional deficiency ( ) Other, please specify: ( ) Clinically unable to determine Mild Malnutrition (BMI < 18.5, % Normal Body Weight 85-95%) Moderate Malnutrition (BMI < 17, % Normal Body Weight 75-85%) Severe Malnutrition (BMI < 16, % Normal Body Weight < 75%) Source: Gerri COMMENTS: PLEASE ALSO DOCUMENT RESPONSE IN PROGRESS NOTES AND/OR DISCHARGE SUMMARY Use of terms such as suspected, likely, or probable (associated with a specific diagnosis that is being evaluated, monitored, or treated as if it exists) are acceptable and can be restated in the discharge summary if not ruled out. MTDD
--- NOTE | 2016-07-14 15:05 | Physician Query Form ---
CLICK EDIT DOCUMENT TO SELECT QUERY ANSWER --> OK --> SIGN Dayanara Bob RN, CCDS Certified Clinical Template Clerk W) [phone] (f) [phone] [email or web address] PROVIDERS: Make your selection(s) from the choices in EACH section by typing an "x" and enter comments in the comment section. Please use your independent medical judgment in providing your response. This request does not imply that any particular answer is desired or expected. CLINICAL INDICATORS: (Providers should not edit this section) Wound care nurse documentation includes assessment of Stage 2 pressure ulcer to sacrum, stage 3 pressure ulcer to the left lateral plantar, stage 3 pressure ulcer to left medial plantar, and stage 3 pressure ulcer to right lateral plantar with all wounds present on admission with orders for wound care noted Based on the above, could you clarify the appropriate diagnosis, if significant , that supports the above abnormalities and additional evaluation, monitoring, and/or treatment rendered: (x ) I agree with the wound care nurse assessment and documentation noted above ( ) I disagree with the wound care nurse assessment and documentation noted above ( ) I agree with the wound care nurse assessment and documentation noted above with the following changes: ( ) Other, please specify: ( ) Clinically unable to determine COMMENTS: PLEASE ALSO DOCUMENT RESPONSE IN PROGRESS NOTES AND/OR DISCHARGE SUMMARY Use of terms such as suspected, likely, or probable (associated with a specific diagnosis that is being evaluated, monitored, or treated as if it exists) are acceptable and can be restated in the discharge summary if not ruled out. MTDD
[2016-07-15] MEDS: INSULIN LISPRO 100 UNIT/ML SUBCUT SCH ×3 (00:17→15:45)
[2016-07-15] MEDS: DEXTROSE 5% 1,000 ML IV SCH (04:06)
[2016-07-15] MEDS: LEVOTHYROXINE 25 MCG TABLET PO SCH (06:00)
[2016-07-15 06:55] LABS: Calcium 7.5 MG/DL (8.5-10.1); Magnesium 1.9 MG/DL (1.8-2.4); Osmolality,Calculated 300.7 MOS/KG (273-304); Phosphorous 2.8 MG/DL (2.5-4.9); Potassium 2.7 MMOL/L (3.5-5.1); Prealbumin 5.9 MG/DL (20-40)
[2016-07-15] MEDS: PANTOPRAZOLE 40 MG VIAL IV SCH (08:23)
[2016-07-15] MEDS: DESITIN 4OZ/NYSTATIN 15 GRAM MIXTURE PASTE TOP SCH ×2 (08:31→22:40)
--- NOTE | 2016-07-15 10:31 | Hospitalist Progress Note ---
Assessment and Plan - Time spent with patient Time spent with patient: Less than 30 minutes (1) Failure to thrive Status: Acute Assessment and plan: Continue nutritional support through NG tube. Will need to discuss with family considerations for possible PEG tube placement prior to discharge to the longterm. Current Visit: Yes Qualifiers: Failure to thrive age range: in adult Qualified Code(s): R62.7 - Adult failure to thrive (2) Acute on chronic renal failure Status: Acute Assessment and plan: Creatinine has improved to 4.0 today from a maximum of 6.0. We will continue to hydrate and follow renal function but suspect that she this was an acute on chronic kidney disease. We may be approaching her baseline. Current Visit: Yes (3) Hypokalemia Status: Acute Assessment and plan: Replace potassium today and follow-up level in a.m. Current Visit: Yes (4) Diabetes Status: Chronic Assessment and plan: Blood sugars fairly well controlled. Continue current Accu-Cheks with sliding scale insulin. Current Visit: Yes Qualifiers: Diabetes mellitus type: type 2 Diabetes mellitus complication status: with circulatory complication Diabetes mellitus complication detail: with peripheral angiopathy without gangrene Diabetes mellitus [facility] insulin use : with brokerage coordinator use Qualified Code(s): E11.51 - Type 2 diabetes mellitus with diabetic peripheral angiopathy without gangrene; Z79.4 - clinical supervisor (current ) use of insulin (5) Hypothyroidism Status: Chronic Assessment and plan: Continue replacement therapy. Current Visit: No Qualifiers: Hypothyroidism type: acquired Qualified Code(s): E03.9 - Hypothyroidism, unspecified (6) Bacteremia Status: Acute Assessment and plan: [place] to be contaminant. Current Visit: Yes (7) DNR status Status: Chronic Current Visit: Yes Hospitalist: Subjective Interval history: Chart reviewed and patient examined. She is awake and alert and will obey simple commands. She attempts to answer questions but her speech is indistinct. She has an NG tube in place. Exam - Constitutional Vitals: Period Temp Pulse Resp BP Sys/Garcia Pulse Ox Last 24 Hr 97.3 F-98.0 F 60-85 16-20 98-135/47-72 93-99 General appearance: no acute distress - Head Head exam: Present: normocephalic, atraumatic - Eye Eye exam: Present: EOMI Pupils: Present: CLEMENT - ENT ENT exam: Present: other (NG tube in place) - Neck Neck exam: Present: normal inspection - Respiratory Respiratory exam: Present: rhonchi - Cardiovascular Cardiovascular exam: Present: regular rate and rhythm. Absent: tachycardia - GI/Abdominal GI/Abdominal exam: Present: normal bowel sounds, soft. Absent: mass, tenderness - Extremities Exam Extremities exam: Absent: calf tenderness, edema - Neurological Exam Neurological exam: Present: alert, CN II-XII intact, other (Speech is indistinct and unable to determine orientation) - Skin Skin exam: Present: warm, dry. Absent: erythema Results - Labs CBC & BMP: 07/14/16 03:05 07/15/16 04:57 Lab Results: I have reviewed the past 24 hour labs
[2016-07-15] MEDS: POTASSIUM CHLORIDE 20 MEQ/15 ML UDCUP PO SCH ×2 (12:31→20:35)
[2016-07-15] MEDS: DEXT 5% NACL 0.9% KCL 40 MEQ 40 MEQ/1,000 ML BAG IV SCH (12:31)
[2016-07-16] MEDS: INSULIN LISPRO 100 UNIT/ML SUBCUT SCH ×5 (01:13→17:12)
[2016-07-16] MEDS: DEXT 5% NACL 0.9% KCL 40 MEQ 40 MEQ/1,000 ML BAG IV SCH ×4 (01:13→20:03)
[2016-07-16] MEDS: LEVOTHYROXINE 25 MCG TABLET PO SCH (06:45)
[2016-07-16] MEDS: DESITIN 4OZ/NYSTATIN 15 GRAM MIXTURE PASTE TOP SCH ×2 (09:06→20:03)
[2016-07-16] MEDS: PANTOPRAZOLE 40 MG VIAL IV SCH (09:06)
[2016-07-16] MEDS: POTASSIUM CHLORIDE 20 MEQ/15 ML UDCUP PO SCH ×3 (09:06→20:03)
--- NOTE | 2016-07-16 09:40 | Hospitalist Progress Note ---
Assessment and Plan - Time spent with patient Time spent with patient: Less than 30 minutes (1) Failure to thrive Status: Acute Assessment and plan: Continue nutritional support through NG tube. Will need to discuss with family considerations for possible PEG tube placement prior to discharge to the detention. 07/16/16: She has pulled her NG tube out this morning. We will leave out at this time. I have had a long discussion with her daughter, Nydia Campbell, who request discussion with gastroenterology to reconsider PEG tube placement. Current Visit: Yes Qualifiers: Failure to thrive age range: in adult Qualified Code(s): R62.7 - Adult failure to thrive (2) Acute on chronic renal failure Status: Acute Assessment and plan: Creatinine has improved to 4.0 today from a maximum of 6.0. We will continue to hydrate and follow renal function but suspect that she this was an acute on chronic kidney disease. We may be approaching her baseline. 07/16/16: Continuing IV hydration at this point. Laboratory studies are pending. Current Visit: Yes (3) Hypokalemia Status: Acute Assessment and plan: Replace potassium today and follow-up level in a.m. 07/16/16: Labs currently pending. Will address as needed. Current Visit: Yes (4) Diabetes Status: Chronic Assessment and plan: Blood sugars fairly well controlled. Continue current Accu-Cheks with sliding scale insulin. Current Visit: Yes Qualifiers: Diabetes mellitus type: type 2 Diabetes mellitus complication status: with circulatory complication Diabetes mellitus complication detail: with peripheral angiopathy without gangrene Diabetes mellitus group home insulin use : with long term care social worker use Qualified Code(s): E11.51 - Type 2 diabetes mellitus with diabetic peripheral angiopathy without gangrene; Z79.4 - [facility] (current ) use of insulin (5) Hypothyroidism Status: Chronic Assessment and plan: Continue replacement therapy. Current Visit: No Qualifiers: Hypothyroidism type: acquired Qualified Code(s): E03.9 - Hypothyroidism, unspecified (6) Bacteremia Status: Acute Assessment and plan: [place] to be contaminant. Current Visit: Yes (7) DNR status Status: Chronic Current Visit: Yes Hospitalist: Subjective Interval history: Patient has pulled her NG tube out. Will discontinue tube feedings at this time. I was able to contact the patient's daughter, Nydia Campbell, and explain the current condition. Patient is at high risk for dehydration and recurrent renal failure as well as aspiration and they have refused PEG tube placement in the past. I recommended that she return to the [facility] on hospice for comfort care only and avoid any recurrent trips to the emergency department or hospital for any further care. Exam - Constitutional Vitals: Period Temp Pulse Resp BP Sys/Garcia Pulse Ox Last 24 Hr 97.6 F-99.1 F 56-97 18-20 101-128/43-69 92-100 General appearance: no acute distress - Head Head exam: Present: normocephalic, atraumatic - Eye Eye exam: Present: EOMI Pupils: Present: CLEMENT - ENT ENT exam: Present: normal exam - Neck Neck exam: Present: normal inspection - Respiratory Respiratory exam: Present: clear to auscultation bilaterally - Cardiovascular Cardiovascular exam: Present: regular rate and rhythm. Absent: tachycardia - GI/Abdominal GI/Abdominal exam: Present: normal bowel sounds, soft. Absent: mass, tenderness - Extremities Exam Extremities exam: Absent: calf tenderness, edema - Back Exam Back exam: Present: normal inspection - Neurological Exam Neurological exam: Present: alert, CN II-XII intact. Absent: motor sensory deficit - Psychiatric Psychiatric exam: Present: normal affect, normal mood. Absent: agitated, anxious - Skin Skin exam: Present: warm, dry. Absent: erythema Results - Labs CBC & BMP: 07/14/16 03:05 07/15/16 04:57 Lab Results: I have reviewed the past 24 hour labs
--- NOTE | 2016-07-16 11:24 | Gastrointestinal Consult Note ---
Assessment and Plan (1) Severe malnutrition Status: Acute Assessment and plan: The patient appears clinically to have a low pre-albumin level and to have lost a fair amount of weight due to lack of caloric intake, PEG tube would certainly help with this, she will also be able to get her hydration and nutrition and medications without having to rely upon swallowing. Unfortunately this will likely not affect her overall prognosis significantly given her chronic comorbidities. The family member understand that they will likely be prolonging the patient's dying process without clear benefit but wished to proceed with PEG tube placement anyway. They stated that when asked the patient about this earlier in the previous hospitalization that she indicated that she wanted "to live". We will plan on PEG tube placement on 05/18/16 unless the family changes their minds. Current Visit: Yes (2) Failure to thrive Status: Acute Assessment and plan: Patient has had dementia for some time now. She was significantly dehydrated and is an appropriate candidate for hospice. Family members have changed her mind and wish to place PEG tube at this time. We will oblige, given their power of securities attorney. Current Visit: Yes Qualifiers: Failure to thrive age range: in adult Qualified Code(s): R62.7 - Adult failure to thrive (3) Hypokalemia Status: Acute Assessment and plan: The patient's potassium is 2.7. Per hospital protocol we need to get this higher than 3.0 in order to proceed with the PEG tube placement. We will recheck on Sunday and possibly Sunday morning. When the patient was started on feedings we can anticipate seeing some potassium/sodium and magnesium flux due to refeeding phenomenon. We will watch for this. Current Visit: Yes History of Present Illness History of present illness: Ms. Olea is a 80 year old female who has a history of mental status change dehydration renal failure and peripheral vascular disease with hypertension diabetes and severe dementia. I had a long conversation with Dr. Hoskins, and the patient's power of securities attorney Master Campbell as well as son-in-law on the telephone today concerning this patient's situation/mental status change/severe cardiac condition and what can be expected with a feeding tube in terms of prolongation of the patient suffering for marginal benefit. Extending the duration of life without improving quality significantly. The family wishes to proceed with PEG tube placement, although they are going to continue to discuss this. The patient herself is awake enough to redistribute the pillows on her bed. She has had some difficulty tolerating bolus feedings with high residuals and also removes her feeding tube from her nose without significant difficulty. She is at high risk for removal of the PEG tube and would likely have to have an abdominal binder at all times to protect this. We will try and get her lites tuned up as much as possible prior to the PEG tube placement which will need to occur on Sunday, as we are in the midst of a long . The patient's most recent potassium from yesterday morning was 2.7. She has been getting 40 mEq with her IV fluids which are currently running at 1 25 mL/h. She was getting some potassium elixir through the NG tube which she has since removed. BUN is 119 with a creatinine of 4.0 due to the relative dehydration. We did emphasize that this patient is not going to have meaningful recovery even with hydration but that she would likely survive the procedure of PEG tube placement. Home Medications Medication Instructions Recorded Confirmed Type Donepezil [Aricept] 5 mg PO BEDTIME 07/19/14 07/12/16 History Memantine [Namenda] 10 mg PO BID 07/19/14 07/12/16 History Glucagon 1 mg IM PRN PRN 08/26/15 07/12/16 History Divalproex Sodium 250 mg PO TID 01/26/16 07/12/16 History Aspirin EC Tab 81 mg PO DAILY 03/09/16 07/12/16 History Bacitracin Oint 1 applic TOP DAILY ointment 03/27/16 07/12/16 Rx Levothyroxine Inj [Synthroid Inj] 50 mcg IV DAILY@0700 vial 03/27/16 07/12/16 Rx Pentoxifylline [TRENtal] 400 mg PO TID tablet 03/27/16 07/12/16 Rx Skin Healing Oint (Aquaphor) 1 applic TOP PRN PRN #0 ointment 03/27/16 07/12/16 Rx [Aquaphor] amLODIPine [Norvasc] 5 mg PO DAILY tablet 03/27/16 07/12/16 Rx cloNIDine 0.2 MG/24 HR PATCH 1 patch TRANSDERM Q7DAY patch 03/27/16 07/12/16 Rx [Grpjupla-TDP-6 Patch] Metoprolol Tartrate Tab [Lopressor 25 mg PO DAILY 07/12/16 07/12/16 History Tab] Potassium Chloride [Klor-Con 8] 8 meq PO BID 07/12/16 07/12/16 History Allergies Allergy/AdvReac Type Severity Reaction Status Date / Time benztropine [From Cogentin] Allergy Unknown/Unable Verified 07/11/16 15:01 to obtain egg Allergy Unknown/Unable Verified 07/11/16 15:01 to obtain Medical,Surgical,& Family Hx - Medical History Cardio: History of: Hypertension Psychological: History of: Bipolar Disorder Neurology: History of: Peripheral Neuropathy, Seizures Endocrine: History of: Diabetes Mellitus (NIDDM), Thyroid Disorder Respiratory: No history of: Asthma, Bronchitis, COPD, Intubation, Obstructive Sleep Apnea , Pulmonary Embolism, Pulmonary Hypertension, Lung Cancer Renal: History of: Renal Problems (past episode of renal failure from dehydration) Musculoskeletal: History of: Musculoskeletal Problems (weakness; bed bound patient) Hematology: History of: Anemia Other: History of: Skin Problems (skin wounds to feet), Miscellaneous Medical Problems (anemia/diabetic ulcer left foot) - Surgical History Cardiac Surgeries: Patient Denies: Vascular Access Devices Thoracic Surgeries: Patient denies;: Organ Transplant, Lobectomy Neurologic Surgeries: Patient denies: Neurologic Surgery Abdominal Surgeries: Patient denies: Hernia Repair - Family History Family History: Reports;: Family Diabetes, Family Hypertension - Social History Smoking Status: Never smoker Frequency of Alcohol Use: None Type of Drug Use: None ROS unobtainable: due to dementia Exam - Constitutional Vitals: Period Temp Pulse Resp BP Sys/Garcia Pulse Ox Last 24 Hr 97.6 F-99.1 F 56-103 18-20 101-128/43-69 92-100 General appearance: under weight Exam: The patient does wake up and look around briefly for noxious stimuli. She does not follow commands she does not interact with me. - Head Head exam: Present: other (Temporal wasting) - Eye Eye exam: Present: EOMI - Neck Neck exam: Absent: thyromegaly - Respiratory Respiratory exam: Present: decreased breath sounds (In the bilateral bases), rhonchi. Absent: wheezes - Cardiovascular Cardiovascular exam: Present: JVD, regular rate and rhythm - GI/Abdominal GI/Abdominal exam: Present: hypoactive bowel sounds, tenderness (Epigastric and periumbilical), soft. Absent: distended, rebound - Extremities Exam Extremities exam: Present: other (Decreased lower extremity pulses peripherally) . Absent: edema - Neurological Exam Neurological exam: Present: altered (The patient has fairly severe dementia. She does not answer questions. She appears to be in pain with most movement.) - Psychiatric Psychiatric exam: Present: agitated Results - Labs CBC & BMP: 07/14/16 03:05 07/15/16 04:57
[2016-07-16 12:00] LABS: Calcium 7.1 MG/DL (8.5-10.1); Osmolality,Calculated 314.5 MOS/KG (273-304)
[2016-07-17] MEDS: INSULIN LISPRO 100 UNIT/ML SUBCUT SCH ×4 (00:08→19:20)
[2016-07-17] MEDS: DEXT 5% NACL 0.9% KCL 40 MEQ 40 MEQ/1,000 ML BAG IV SCH ×2 (05:15→10:37)
[2016-07-17] MEDS: LEVOTHYROXINE 25 MCG TABLET PO SCH (06:13)
[2016-07-17 06:34] LABS: Basophils % 0.2 % (0.0-0.8); Eosinophils % 0.4 % (0.00-10.9); Hematocrit 20.8 VOL% (35.7-47.0); Immature Granulocytes % 1.2 %; Immature Granulocytes Absolute 0.06 #; Lymphocytes # 0.7 10*3/uL (1.4-4.0); Lymphocytes % 14.4 % (21.3-54.2); Mean Corpuscular HGB Conc 30.8 GM/DL (32-36); Mean Corpuscular Hemoglobin 28 PG (27-34); Mean Corpuscular Volume 89.3 FL (87-102); Monocytes # 0.4 10*3/uL (0.11-0.8); Monocytes % 7.5 % (1.7-12.7); Neutrophils # 3.8 10*3/uL (1.4-7.4); Neutrophils % 76.3 % (38.7-73.9); Platelet Count 86 T/CUMM (130-400); Red Blood Count 2.33 MC/CUMM (3.8-5.5); Red Cell Distribution Width 17.4 % (9.3-17.3); White Blood Count 4.9 T/CUMM (4-12)
[2016-07-17 06:42] LABS: Hemoglobin 6.4 GM/DL (12.0-16.0)
[2016-07-17 06:45] LABS: INR 1.1; PT Patient Result 11.6 SECS
[2016-07-17] MEDS ORDERED: SODIUM CHLORIDE 0.9% 250 ML IV PRN (07:10)
[2016-07-17] MEDS ORDERED: FUROSEMIDE 20 MG/2 ML VIAL IV PRN (07:10)
[2016-07-17] MEDS ORDERED: FUROSEMIDE 40 MG/4 ML VIAL IV ONE ×2 (07:16→18:01)
--- NOTE | 2016-07-17 07:22 | Gastrointestinal Progress Note ---
Assessment and Plan (1) Severe malnutrition Status: Acute Assessment and plan: The patient appears clinically to have a low pre-albumin level and to have lost a fair amount of weight due to lack of caloric intake, PEG tube would certainly help with this, she will also be able to get her hydration and nutrition and medications without having to rely upon swallowing. Unfortunately this will likely not affect her overall prognosis significantly given her chronic comorbidities. The family member understand that they will likely be prolonging the patient's dying process without clear benefit but wished to proceed with PEG tube placement anyway. They stated that when asked the patient about this earlier in the previous hospitalization that she indicated that she wanted "to live". We will plan on PEG tube placement on 05/18/16 unless the family changes their minds. 07/17/16--The patient appears to be in some mild failure at this time--we are going to give some Lasix and check a BMP. Feeding tube to be placed tomorrow if the patient is healthy enough to be able to go through this. PEG tube placement tomorrow if the patient's potassium meets criteria and she is well enough to undergo this brief procedure. This was discussed at length with the patient's family and they understand that the patient may during the procedure and that this will not significantly improve her long-term prognosis. Risks of the procedure include: Bleeding, infection, perforation, cardiac and pulmonary compromise--these were reviewed and they wish to proceed. Current Visit: Yes (2) Failure to thrive Status: Acute Assessment and plan: Patient has had dementia for some time now. She was significantly dehydrated and is an appropriate candidate for hospice. Family members have changed her mind and wish to place PEG tube at this time. We will oblige, given their power of senior trial attorney. 07/17/16--the patient appears to be in failure right now, note plan for this elaborated in these notes. Current Visit: Yes Qualifiers: Failure to thrive age range: in adult Qualified Code(s): R62.7 - Adult failure to thrive (3) Hypokalemia Status: Acute Assessment and plan: The patient's potassium is 2.7. Per hospital protocol we need to get this higher than 3.0 in order to proceed with the PEG tube placement. We will recheck on Sunday and possibly Sunday morning. When the patient was started on feedings we can anticipate seeing some potassium/sodium and magnesium flux due to refeeding phenomenon. We will watch for this. 07/17/16--We Will check this today and again tomorrow morning. I am cutting back on the amount of IV fluids the patient is getting. Hopefully her potassium is above 3.0 and she will meet criteria for PEG tube placement tomorrow should her lungs clear. This would be safer if she had a blood transfusion as well. Current Visit: Yes (4) Anemia Status: Acute Assessment and plan: Some of this is dilutional, but of note her initial hematocrit was 42.8% and this is dropped down to 20.8% without gross evidence of melena/bright red blood per rectum or other evidence of bleeding. This is been a slow steady drop. We will continue to observe the patient. On physical exam the patient appears to be in failure with a slight amount of tachypnea witnessed and crackles/rales throughout her lung taylor. She does need some blood but will go ahead and give her some Lasix first and cut back her fluids from 125-->50 milliliters per hour. Current Visit: Yes Gastroenterology - PN: Subj Interval history: The patient is denying any abdominal pain. Questioned nursing staff about black stools and blood in her stools as her hematocrit is taking quite the drop since her admission. Exam (Progress Note) - Constitutional Vitals: Period Temp Pulse Resp BP Sys/Garcia Pulse Ox Last 24 Hr 97.4 F-98.6 F 78-103 18-22 113-140/43-92 88-98 General appearance: mild distress - Head Head exam: Present: normal inspection - Respiratory Respiratory exam: Present: decreased breath sounds (In the bases), rales (Noted in all lung taylor), other (Patient appears to be tachypneic at about 30 breaths per minute) - Cardiovascular Cardiovascular exam: Present: regular rate and rhythm - GI/Abdominal GI/Abdominal exam: Present: normal bowel sounds, soft, other (Scaphoid abdomen) . Absent: tenderness, rebound - Extremities Exam Extremities exam: Present: edema (Trace in the ankles) - Neurological Exam Neurological exam: Present: alert, altered (Demented and can only answer simple questions mostly with head movements.). Absent: motor sensory deficit - Psychiatric Psychiatric exam: Absent: agitated - Skin Skin exam: Present: warm Results - Labs CBC & BMP: 07/17/16 06:04 07/16/16 10:50
[2016-07-17 07:25] LABS: Acanthocytes Few; Anisocytosis 1+; Band Neutrophils 10 % (0-10); Hypochromasia 2+; Lymphocytes 11 % (20-55); Myelocytes 3 %; Segmented Neutrophils 74 % (50-85); Total Cells Counted 100
[2016-07-17 07:26] LABS: Basophilic Stippling Few; Platelet Estimate Decreased
[2016-07-17] MEDS: POTASSIUM CHLORIDE 20 MEQ/15 ML UDCUP PO SCH (08:07)
[2016-07-17] MEDS: DESITIN 4OZ/NYSTATIN 15 GRAM MIXTURE PASTE TOP SCH ×2 (08:07→20:08)
[2016-07-17 08:25] LABS: Calcium 7.4 MG/DL (8.5-10.1); Osmolality,Calculated 323.1 MOS/KG (273-304); Potassium 5.6 MMOL/L (3.5-5.1)
--- NOTE | 2016-07-17 09:19 | Hospitalist Progress Note ---
Assessment and Plan - Time spent with patient Time spent with patient: Less than 30 minutes (1) Failure to thrive Status: Acute Assessment and plan: Continue nutritional support through NG tube. Will need to discuss with family considerations for possible PEG tube placement [facility]. 07/16/16: She has pulled her NG tube out this morning. We will leave out at this time. I have had a long discussion with her daughter, Nydia Campbell, who request discussion with gastroenterology to reconsider PEG tube placement. 07/17/16: She was seen by GI and family has now reconsidered and desire to have PEG tube placement which is tentatively scheduled for 07/18/16. Current Visit: Yes Qualifiers: Failure to thrive age range: in adult Qualified Code(s): R62.7 - Adult failure to thrive (2) Acute on chronic renal failure Status: Acute Assessment and plan: Creatinine has improved to 4.0 today from a maximum of 6.0. We will continue to hydrate and follow renal function but suspect that she this was an acute on chronic kidney disease. We may be approaching her baseline. 07/16/16: Continuing IV hydration at this point. Laboratory studies are pending. 07/17/16: Creatinine continues to improve and is now down to 2.6. We will continue hydration and follow-up chemistries and renal function in the a.m. Current Visit: Yes (3) Hypokalemia Status: Acute Assessment and plan: Replace potassium today and follow-up level in a.m. 07/16/16: Labs currently pending. Will address as needed. 07/17/16: Hypokalemia had resolved and she is now actually hyperkalemic. See plans below. Current Visit: Yes (4) Diabetes Status: Chronic Assessment and plan: Blood sugars fairly well controlled. Continue current Accu-Cheks with sliding scale insulin. Current Visit: Yes Qualifiers: Diabetes mellitus type: type 2 Diabetes mellitus complication status: with circulatory complication Diabetes mellitus complication detail: with peripheral angiopathy without gangrene Diabetes mellitus termite control technician insulin use : with termite control technician use Qualified Code(s): E11.51 - Type 2 diabetes mellitus with diabetic peripheral angiopathy without gangrene; Z79.4 - shelter (current ) use of insulin (5) Hypothyroidism Status: Chronic Assessment and plan: Continue replacement therapy. Current Visit: No Qualifiers: Hypothyroidism type: acquired Qualified Code(s): E03.9 - Hypothyroidism, unspecified (6) Bacteremia Status: Acute Assessment and plan: War to be contaminant. Current Visit: Yes (7) DNR status Status: Chronic Current Visit: Yes (8) Anemia Status: Acute Assessment and plan: Patient has had significant drop in H&H and is being transfused per Dr. Crump. Will follow hematocrits and transfuse as needed. GI is following. Current Visit: Yes (9) Hyperkalemia Status: Acute Assessment and plan: Patient is hyperkalemic. Her oral potassium supplementation as well as her potassium and her IV fluids have been discontinued. She is receiving IV Lasix. We will follow-up potassium level later this morning as well as in the a.m. Current Visit: Yes Hospitalist: Subjective Interval history: Patient is awake and alert but does not answer any questions at this time. GI was consulted and there are plans for PEG tube placement tomorrow. No evidence of bleeding however she has had a drop in hematocrit and is being transfused with packed red blood cells today per Dr. Crump. Exam - Constitutional Vitals: Period Temp Pulse Resp BP Sys/Garcia Pulse Ox Last 24 Hr 97.4 F-98.6 F 78-99 18-22 113-140/53-92 88-98 General appearance: no acute distress - Head Head exam: Present: normocephalic, atraumatic - Eye Eye exam: Present: EOMI Pupils: Present: CLEMENT - ENT ENT exam: Present: normal exam - Neck Neck exam: Present: normal inspection - Respiratory Respiratory exam: Present: clear to auscultation bilaterally - Cardiovascular Cardiovascular exam: Present: regular rate and rhythm - GI/Abdominal GI/Abdominal exam: Present: normal bowel sounds, soft. Absent: tenderness - Extremities Exam Extremities exam: Absent: calf tenderness, edema - Neurological Exam Neurological exam: Present: alert, other (Follows with her eyes but does not answer any questions at this time) - Psychiatric Psychiatric exam: Absent: agitated, anxious - Skin Skin exam: Present: warm, dry. Absent: rash Results - Labs CBC & BMP: 07/17/16 06:04 07/17/16 07:43 Lab Results: I have reviewed the past 24 hour labs
[2016-07-17] MEDS: SODIUM CHLORIDE 0.45% 1,000 ML IV SCH (10:40)
[2016-07-17] MEDS ORDERED: SODIUM POLYSTYRENE SULFATE 15 GM/60 ML BOTTLE RECTAL ONE ×2 (13:04→17:56)
[2016-07-17] MEDS ORDERED: SODIUM POLYSTYRENE SULFATE 15 GM/60 ML BOTTLE NG ONE (13:04)
[2016-07-17] MEDS ORDERED: SODIUM PHOSPHATE ENEMA 133 ML BOTTLE RECTAL ONE (14:34)
[2016-07-17] MEDS ORDERED: MORPHINE 2 MG/1 ML SYRINGE IV ONE (18:20)
[2016-07-17 18:48] LABS: Calcium 8.1 MG/DL (8.5-10.1); Osmolality,Calculated 323.7 MOS/KG (273-304); Potassium 5.3 MMOL/L (3.5-5.1)
[2016-07-17] MEDS: DEXTROSE 50% 25 GM/50 ML VIAL IV PRN (18:49)
[2016-07-17 22:52] LABS: Hematocrit 34.2 VOL% (35.7-47.0)
[2016-07-17 22:53] LABS: Hemoglobin 11.5 GM/DL (12.0-16.0)
[2016-07-18] MEDS: DEXTROSE 50% 25 GM/50 ML VIAL IV PRN ×2 (00:47→11:13)
[2016-07-18] MEDS: INSULIN LISPRO 100 UNIT/ML SUBCUT SCH ×4 (01:20→19:12)
[2016-07-18 03:09] LABS: Apearance,Urine CLEAR (Clear); Bacteria,Urine Occasional /HPF (Few); Bilirubin,Urine Negative (Negative); Blood, Urine Moderate mg/dL (Negative); Glucose,Urine (UA) Negative (Negative); Hyaline Casts,Urine 2 /LPF (0-3); Ketones,Urine Negative (Negative); Mucus,Urine Occasional /LPF (Occasional); Nitrite,Urine Negative (Negative); Protein,Urine Negative; RBC,Urine 13 /HPF (0-4); Urine Color Straw (Yellow); Urine Specific Gravity 1.005 (1.001-1.035); Urine Urobilinogen < 2.0 EU/DL (0.2-1.0); WBC,Urine 2 /HPF (0-6)
[2016-07-18] MEDS: SODIUM CHLORIDE 0.45% 1,000 ML IV SCH (05:40)
[2016-07-18] MEDS: LEVOTHYROXINE 25 MCG TABLET PO SCH (06:01)
[2016-07-18 07:52] LABS: Calcium 7.9 MG/DL (8.5-10.1); Osmolality,Calculated 323.6 MOS/KG (273-304); Potassium 4.2 MMOL/L (3.5-5.1)
[2016-07-18] MEDS ORDERED: DEXTROSE 5% 1,000 ML IV SCH (08:30)
[2016-07-18] MEDS: DESITIN 4OZ/NYSTATIN 15 GRAM MIXTURE PASTE TOP SCH ×2 (11:25→22:21)
--- NOTE | 2016-07-18 12:26 | Gastrointestinal Progress Note ---
Assessment and Plan (1) Severe malnutrition Status: Acute Assessment and plan: The patient appears clinically to have a low pre-albumin level and to have lost a fair amount of weight due to lack of caloric intake, PEG tube would certainly help with this, she will also be able to get her hydration and nutrition and medications without having to rely upon swallowing. Unfortunately this will likely not affect her overall prognosis significantly given her chronic comorbidities. The family member understand that they will likely be prolonging the patient's dying process without clear benefit but wished to proceed with PEG tube placement anyway. They stated that when asked the patient about this earlier in the previous hospitalization that she indicated that she wanted "to live". We will plan on PEG tube placement on 05/18/16 unless the family changes their minds. 07/17/16--The patient appears to be in some mild failure at this time--we are going to give some Lasix and check a BMP. Feeding tube to be placed tomorrow if the patient is healthy enough to be able to go through this. PEG tube placement tomorrow if the patient's potassium meets criteria and she is well enough to undergo this brief procedure. This was discussed at length with the patient's family and they understand that the patient may during the procedure and that this will not significantly improve her long-term prognosis. Risks of the procedure include: Bleeding, infection, perforation, cardiac and pulmonary compromise--these were reviewed and they wish to proceed. 07/18/16--there are coarse respiratory sounds noted throughout all lung taylor currently with a few fine crackles at the bases/dependent portions of the lung. Sodium this morning noted to be 153 although the potassium was back down to the normal range with the Lasix given. We will await her respiratory status and sodium levels this afternoon on recheck after being given D5W. I am concerned that she remains in a state of mild failure at this time, and I doubt that her sodium will be improved enough that we can proceed with the procedure, we will likely have to give her some Lasix and cut back on the D5W to 70 mL/h. I have discussed the placement of the PEG tube with her son-in-law who is at the bedside and expressed my concerns, especially given this patient's overall prognosis. Current Visit: Yes (2) Failure to thrive Status: Acute Assessment and plan: Patient has had dementia for some time now. She was significantly dehydrated and is an appropriate candidate for hospice. Family members have changed her mind and wish to place PEG tube at this time. We will oblige, given their power of commercial litigation attorney. 07/17/16--the patient appears to be in failure right now, note plan for this elaborated in these notes. 07/18/16--potential PEG tube placement later today or tomorrow. Current Visit: Yes Qualifiers: Failure to thrive age range: in adult Qualified Code(s): R62.7 - Adult failure to thrive (3) Hypokalemia Status: Acute Assessment and plan: The patient's potassium is 2.7. Per hospital protocol we need to get this higher than 3.0 in order to proceed with the PEG tube placement. We will recheck on Sunday and possibly Sunday morning. When the patient was started on feedings we can anticipate seeing some potassium/sodium and magnesium flux due to refeeding phenomenon. We will watch for this. 07/17/16--We Will check this today and again tomorrow morning. I am cutting back on the amount of IV fluids the patient is getting. Hopefully her potassium is above 3.0 and she will meet criteria for PEG tube placement tomorrow should her lungs clear. This would be safer if she had a blood transfusion as well. 07/18/16--continuing to watch the potassium and sodium levels in this patient. Likely will try to put in PEG tube tomorrow if the patient is doing better, I doubt that she will be able tolerate this today. Awaiting laboratories. Current Visit: Yes (4) Anemia Status: Acute Assessment and plan: Some of this is dilutional, but of note her initial hematocrit was 42.8% and this is dropped down to 20.8% without gross evidence of melena/bright red blood per rectum or other evidence of bleeding. This is been a slow steady drop. We will continue to observe the patient. On physical exam the patient appears to be in failure with a slight amount of tachypnea witnessed and crackles/rales throughout her lung taylor. She does need some blood but will go ahead and give her some Lasix first and cut back her fluids from 125-->50 milliliters per hour. Current Visit: Yes Gastroenterology - PN: Subj Interval history: The patient appears to be more agitated than previously seen but the nursing staff is trying to get blood from her for this afternoon's sodium recheck. She is not meeting criteria for electrolytes for anesthesia. We are attempting to get her sodium below 150, however her creatinine is still somewhat high at 2.4 although her potassium is back down to the normal range. We are attempting to give her D5W to improve her sodium in the short-term while monitoring her for failure. Exam (Progress Note) - Constitutional Vitals: Period Temp Pulse Resp BP Sys/Garcia Pulse Ox Last 24 Hr 97.0 F-99.4 F 89-128 18-22 102-174/52-97 94-100 - Head Head exam: Present: other (Temporal wasting) - Eye Eye exam: Present: EOMI - Respiratory Respiratory exam: Present: rales, rhonchi (Coarse rhonchi noted throughout with rales detected in the bases.). Absent: accessory muscle use, wheezes - Cardiovascular Cardiovascular exam: Present: regular rate and rhythm, systolic murmur. Absent : rubs - GI/Abdominal GI/Abdominal exam: Present: rebound, soft. Absent: distended, guarding, tenderness - Extremities Exam Extremities exam: Absent: edema - Neurological Exam Neurological exam: Present: alert, oriented X3, CN II-XII intact - Psychiatric Psychiatric exam: Present: agitated - Skin Skin exam: Present: warm Results - Labs CBC & BMP: 07/17/16 22:26 07/18/16 05:31
[2016-07-18 13:19] LABS: Calcium 7.9 MG/DL (8.5-10.1); Osmolality,Calculated 324.4 MOS/KG (273-304); Potassium 4.4 MMOL/L (3.5-5.1)
--- NOTE | 2016-07-18 15:46 | XRay Report ---
XR chest 1V portable Indication: Feeding tube placement. Chest one view: Comparison 07/11/2016. Dobbhoff feeding tube extends well into the stomach. More patchy infiltrate is developing lateral left hilum when compared to prior exam as well. Diffuse increased interstitial markings of the lungs noted as well. Impression: 1. Dobbhoff feeding tube extending well into the stomach. 2. Developing left perihilar pneumonia. PROCEDURE INTERPRETED AT [facility] DEPARTMENT OF RADIOLOGY Final Report Signed by: Lucas Glover M.D.
--- NOTE | 2016-07-18 17:39 | Hospitalist Progress Note ---
Assessment and Plan (1) Dehydration Status: Resolved Current Visit: No (2) Acute kidney injury Status: Resolved Current Visit: No (3) Hypertension Status: Chronic Current Visit: No Qualifiers: Hypertension type: essential hypertension Qualified Code(s): I10 - Essential (primary) hypertension (4) Diabetes Status: Chronic Current Visit: Yes Qualifiers: Diabetes mellitus type: type 2 Diabetes mellitus complication status: with circulatory complication Diabetes mellitus complication detail: with peripheral angiopathy without gangrene Diabetes mellitus shelter insulin use : with shelter use Qualified Code(s): E11.51 - Type 2 diabetes mellitus with diabetic peripheral angiopathy without gangrene; Z79.4 - [facility] (current ) use of insulin (5) Debility Status: Chronic Current Visit: Yes (6) Bipolar disorder Status: Chronic Current Visit: No Qualifiers: Current bipolar episode type: depressed Current episode severity: unspecified (7) Schizophrenia Status: Acute Current Visit: No Qualifiers: Schizophrenia type: unspecified Qualified Code(s): F20.9 - Schizophrenia, unspecified (8) Chronic kidney disease, stage III (moderate) Status: Acute Current Visit: No (9) Prerenal azotemia Problem details: Creatinine near normal to 1.4 today. Status: Resolved Current Visit: No (10) Anemia Status: Acute Current Visit: No (11) Failure to thrive Status: Acute Current Visit: Yes Qualifiers: Failure to thrive age range: in adult Qualified Code(s): R62.7 - Adult failure to thrive Hospitalist: Subjective Interval history: Patient seen and examined. Case discussed with family at the bedside. She is scheduled for PEG tube but unfortunately her sodium is elevated. She has lost IV access. A Keofed will be placed for nutrition and hydration. Repeat chemistries ordered for tomorrow. Patient has end-stage dementia and is a DNR. Daughter and son in law are at the bedside. Case discussed with him at length. Exam - Constitutional Vitals: Period Temp Pulse Resp BP Sys/Garica Pulse Ox Last 24 Hr 97.0 F-99.4 F 95-128 18-22 102-160/53-97 94-100 Exam: Constitutional System: Mild distress. No tremulousness. Frail and cachectic. Nonverbal. Head: Normocephalic, atraumatic. Ears, Nose and Throat System: No pain or tenderness. No epistaxis or discharge Eyes System: Pupils equal, round, and reactive. Extraocular muscles intact. Neck: Supple, without adenopathy, No jugular venous distention. Respiratory System: Chest coarse to auscultation bilaterally. Cardiovascular System: Heart with regular rate and rhythm. No murmur. GI System: Abdomen soft, nontender. Normo active bowel sounds present. Musculoskeletal System: limbs with no pedal edema. Full distal pulses. Edema in both arms- left greater than right Neurological System: Functional quadriplegia Psychiatric System: Unable to assess secondary to mental status secondary to end -stage dementia. Results - Labs CBC & BMP: 07/17/16 22:26 07/18/16 12:23 Lab Results: I have reviewed the past 24 hour labs
[2016-07-18] MEDS ORDERED: LEVOFLOXACIN 750 MG TABLET PER TUBE ONE (19:59)
[2016-07-18] MEDS ORDERED: LEVOFLOXACIN INJ 500 MG in PREMIX 1 EACH IV ONE (20:00)
[2016-07-18] MEDS: HALOPERIDOL 5 MG/ML AMP IM PRN (22:47)
[2016-07-19] MEDS: INSULIN LISPRO 100 UNIT/ML SUBCUT SCH ×5 (00:41→23:16)
[2016-07-19] MEDS: LEVOTHYROXINE 25 MCG TABLET PO SCH (06:04)
[2016-07-19 06:05] LABS: Basophils % 0.2 % (0.0-0.8); Eosinophils % 0.2 % (0.00-10.9); Hematocrit 30.1 VOL% (35.7-47.0); Hemoglobin 10.1 GM/DL (12.0-16.0); Immature Granulocytes % 0.8 %; Immature Granulocytes Absolute 0.08 #; Lymphocytes % 10.3 % (21.3-54.2); Mean Corpuscular HGB Conc 33.6 GM/DL (32-36); Mean Corpuscular Hemoglobin 29 PG (27-34); Mean Corpuscular Volume 85.5 FL (87-102); Mean Platelet Volume 11.6 FL (9.6-12.0); Monocytes # 0.3 10*3/uL (0.11-0.8); Monocytes % 3.2 % (1.7-12.7); Neutrophils # 8.3 10*3/uL (1.4-7.4); Neutrophils % 85.3 % (38.7-73.9); Platelet Count 114 T/CUMM (130-400); Red Blood Count 3.52 MC/CUMM (3.8-5.5); Red Cell Distribution Width 16.5 % (9.3-17.3); White Blood Count 9.7 T/CUMM (4-12)
[2016-07-19 06:35] LABS: Band Neutrophils 5 % (0-10); Hypochromasia 1+; Lymphocytes 9 % (20-55); Ovalocytes Slight; Platelet Estimate Decreased; Segmented Neutrophils 85 % (50-85); Total Cells Counted 100
[2016-07-19 06:36] LABS: Calcium 7.8 MG/DL (8.5-10.1); Magnesium 1.6 MG/DL (1.8-2.4); Osmolality,Calculated 323.4 MOS/KG (273-304); Potassium 3.1 MMOL/L (3.5-5.1)
[2016-07-19] MEDS ORDERED: MAGNESIUM SULF RIDER 2 GM in PREMIX 1 EACH IV ONE (08:31)
--- NOTE | 2016-07-19 13:56 | XRay Report ---
XR chest 1V portable Indication: Confirmation of NG tube placement. Comparison: Chest x-ray 07/18/2016 Technique: Portable AP chest was performed. Findings: Weighted feeding tube terminates within the gastric fundus. Tip is directed laterally to the left probably lies just within the GE junction. Advancement by 6 to 8 cm could be considered. The lung parenchyma demonstrates little change since comparison. Impression: 1. Weighted feeding tube placement as detailed. 07/19/2016 1:53 PM PROCEDURE INTERPRETED AT [facility] DEPARTMENT OF RADIOLOGY Final Report Signed by: Dr. Nacho Green
--- NOTE | 2016-07-19 14:58 | XRay Report ---
XR chest 1V portable Indication: Confirm NG tube placement Comparison: No relevant comparison Technique: Single frontal view of the chest and upper abdomen specifically for enteric tube placement. Findings: Weighted enteric tube tip projects over the proximal/mid stomach. IMPRESSION: As above. PROCEDURE INTERPRETED AT [facility] DEPARTMENT OF RADIOLOGY Final Report Signed by: Dr Teddy Elise
--- NOTE | 2016-07-19 16:28 | Gastrointestinal Progress Note ---
Assessment and Plan (1) Severe malnutrition Status: Acute Assessment and plan: The patient appears clinically to have a low pre-albumin level and to have lost a fair amount of weight due to lack of caloric intake, PEG tube would certainly help with this, she will also be able to get her hydration and nutrition and medications without having to rely upon swallowing. Unfortunately this will likely not affect her overall prognosis significantly given her chronic comorbidities. The family member understand that they will likely be prolonging the patient's dying process without clear benefit but wished to proceed with PEG tube placement anyway. They stated that when asked the patient about this earlier in the previous hospitalization that she indicated that she wanted "to live". We will plan on PEG tube placement on 05/18/16 unless the family changes their minds. 07/17/16--The patient appears to be in some mild failure at this time--we are going to give some Lasix and check a BMP. Feeding tube to be placed tomorrow if the patient is healthy enough to be able to go through this. PEG tube placement tomorrow if the patient's potassium meets criteria and she is well enough to undergo this brief procedure. This was discussed at length with the patient's family and they understand that the patient may during the procedure and that this will not significantly improve her long-term prognosis. Risks of the procedure include: Bleeding, infection, perforation, cardiac and pulmonary compromise--these were reviewed and they wish to proceed. 07/18/16--there are coarse respiratory sounds noted throughout all lung taylor currently with a few fine crackles at the bases/dependent portions of the lung. Sodium this morning noted to be 153 although the potassium was back down to the normal range with the Lasix given. We will await her respiratory status and sodium levels this afternoon on recheck after being given D5W. I am concerned that she remains in a state of mild failure at this time, and I doubt that her sodium will be improved enough that we can proceed with the procedure, we will likely have to give her some Lasix and cut back on the D5W to 70 mL/h. I have discussed the placement of the PEG tube with her son-in-law who is at the bedside and expressed my concerns, especially given this patient's overall prognosis. 07/18/16--patient's sodium remains elevated, her potassium unfortunately has dropped at this point but her lung sounds are improved from yesterday. I agree with the current plan to try and give her 3 water flushes to see if we can improve her sodium is more physiologically. The family is still desiring PEG tube placement. Current Visit: Yes (2) Failure to thrive Status: Acute Assessment and plan: Patient has had dementia for some time now. She was significantly dehydrated and is an appropriate candidate for hospice. Family members have changed her mind and wish to place PEG tube at this time. We will oblige, given their power of cell biologist. 07/17/16--the patient appears to be in failure right now, note plan for this elaborated in these notes. 07/18/16--potential PEG tube placement later today or tomorrow. 07/18/16--Possible PEG tube tomorrow, if electrolytes meet parameters. Current Visit: Yes Qualifiers: Failure to thrive age range: in adult Qualified Code(s): R62.7 - Adult failure to thrive (3) Hypokalemia Status: Acute Assessment and plan: The patient's potassium is 2.7. Per hospital protocol we need to get this higher than 3.0 in order to proceed with the PEG tube placement. We will recheck on Sunday and possibly Sunday morning. When the patient was started on feedings we can anticipate seeing some potassium/sodium and magnesium flux due to refeeding phenomenon. We will watch for this. 07/17/16--We Will check this today and again tomorrow morning. I am cutting back on the amount of IV fluids the patient is getting. Hopefully her potassium is above 3.0 and she will meet criteria for PEG tube placement tomorrow should her lungs clear. This would be safer if she had a blood transfusion as well. 07/18/16--continuing to watch the potassium and sodium levels in this patient. Likely will try to put in PEG tube tomorrow if the patient is doing better, I doubt that she will be able tolerate this today. Awaiting laboratories. 07/19/16--potassium level is hypokalemic and would benefit from replacement. The patient is getting free water flushes in order to improve her hypernatremia 200 mL every 4 hours however she is removing her Dobbhoff feeding tube at every opportunity. Hopefully she will be able tolerate this long enough to obtain a more permanent solution for her feeding difficulties. Current Visit: Yes (4) Anemia Status: Acute Assessment and plan: Some of this is dilutional, but of note her initial hematocrit was 42.8% and this is dropped down to 20.8% without gross evidence of melena/bright red blood per rectum or other evidence of bleeding. This is been a slow steady drop. We will continue to observe the patient. On physical exam the patient appears to be in failure with a slight amount of tachypnea witnessed and crackles/rales throughout her lung taylor. She does need some blood but will go ahead and give her some Lasix first and cut back her fluids from 125-->50 milliliters per hour. Current Visit: Yes Gastroenterology - PN: Subj Interval history: Unfortunately, the patient has been able to remove her Dobbhoff feeding tube multiple times due to loose restraints and her unique talents of removing herself from these restraints. She seems much more awake at this time and is able to cry out loudly when noxious stimuli are presented however is remaining in her nonverbal status and does not answer questions. Unfortunately her potassium is low as well as her sodium being high and so I will give some potassium through the Dobbhoff when this can be placed again. She is getting free water flushes at 200 mL every 4 hours. Exam (Progress Note) - Constitutional Vitals: Period Temp Pulse Resp BP Sys/Garcia Pulse Ox Last 24 Hr 97.3 F-98.8 F 65-122 18-20 81-191/42-82 90-97 General appearance: no acute distress - Head Head exam: Present: normal inspection - Eye Eye exam: Present: EOMI - ENT ENT exam: Present: other (The patient has multiple remaining teeth in her lower arch but not in her upper arch) - Respiratory Respiratory exam: Present: rhonchi (Coarse rhonchi in all lung taylor, the rales at the bases have gone away) - Cardiovascular Cardiovascular exam: Present: regular rate and rhythm - GI/Abdominal GI/Abdominal exam: Present: normal bowel sounds, tenderness (Mild diffuse epigastric tenderness to deep palpation), soft. Absent: ascites, distended, guarding - Neurological Exam Neurological exam: Present: altered (Patient is awake again but does not follow commands or answer questions appropriately) - Psychiatric Psychiatric exam: Present: normal affect, normal mood - Skin Skin exam: Present: warm Results - Labs CBC & BMP: 05/31/17 05:18 07/19/16 05:18
--- NOTE | 2016-07-19 16:55 | Hospitalist Progress Note ---
Assessment and Plan (1) Failure to thrive Status: Acute Assessment and plan: PEG tube planned for tomorrow. Unable to perform today secondary to hypernatremia and hypokalemia. Continue free water flush and potassium replacement. Repeat labs in a.m. GI following. Current Visit: Yes Qualifiers: Failure to thrive age range: in adult Qualified Code(s): R62.7 - Adult failure to thrive (2) Hypertension Status: Chronic Current Visit: No Qualifiers: Hypertension type: essential hypertension Qualified Code(s): I10 - Essential (primary) hypertension (3) Diabetes Status: Chronic Current Visit: Yes Qualifiers: Diabetes mellitus type: type 2 Diabetes mellitus complication status: with circulatory complication Diabetes mellitus complication detail: with peripheral angiopathy without gangrene Diabetes mellitus terminal superintendent insulin use : with longterm use Qualified Code(s): E11.51 - Type 2 diabetes mellitus with diabetic peripheral angiopathy without gangrene; Z79.4 - detention (current ) use of insulin (4) Debility Status: Chronic Current Visit: Yes (5) Bipolar disorder Status: Chronic Current Visit: No Qualifiers: Current bipolar episode type: depressed Current episode severity: unspecified (6) Schizophrenia Status: Chronic Current Visit: No Qualifiers: Schizophrenia type: unspecified Qualified Code(s): F20.9 - Schizophrenia, unspecified (7) Chronic kidney disease, stage III (moderate) Status: Chronic Current Visit: No (8) Anemia Status: Acute Current Visit: No Hospitalist: Subjective Interval history: Patient seen and examined. No acute events overnight. Case discussed with nursing staff. Labs reviewed. case discussed with granddaughter and daughter at the bedside Exam - Constitutional Vitals: Period Temp Pulse Resp BP Sys/Garcia Pulse Ox Last 24 Hr 97.3 F-98.8 F 65-122 18-20 81-191/42-82 90-97 Exam: Constitutional System: Mild distress. No tremulousness. Frail and cachectic. Nonverbal. Head: Normocephalic, atraumatic. Ears, Nose and Throat System: No pain or tenderness. No epistaxis or discharge Eyes System: Pupils equal, round, and reactive. Extraocular muscles intact. NG tube in place Neck: Supple, without adenopathy, No jugular venous distention. Respiratory System: Chest coarse to auscultation bilaterally. Cardiovascular System: Heart with regular rate and rhythm. No murmur. GI System: Abdomen soft, nontender. Normo active bowel sounds present. Musculoskeletal System: limbs with no pedal edema. Full distal pulses. Edema in both arms- left greater than right Neurological System: Functional quadriplegia Psychiatric System: Unable to assess secondary to mental status secondary to end -stage dementia. Results - Labs CBC & BMP: 07/19/16 05:18 07/19/16 05:18 Lab Results: I have reviewed the past 24 hour labs
[2016-07-19] MEDS: DESITIN 4OZ/NYSTATIN 15 GRAM MIXTURE PASTE TOP SCH ×2 (17:15→21:09)
--- NOTE | 2016-07-19 18:07 | XRay Report ---
XR chest 1V portable Indication: Confirm NG tube placement Comparison: No relevant comparison Technique: Single frontal view of the chest and upper abdomen specifically for enteric tube placement. Findings: Tubular structure is noted coiled over the cervical esophagus which likely reflects enteric tube, abnormal in position. Recommend withdrawal. IMPRESSION: As above. PROCEDURE INTERPRETED AT [facility] DEPARTMENT OF RADIOLOGY Final Report Signed by: Dr Teddy Elise
--- NOTE | 2016-07-19 18:09 | XRay Report ---
XR chest 1V portable Indication: NG tube placement Comparison: No relevant comparison Technique: Single frontal view of the chest and upper abdomen specifically for enteric tube placement. Findings: Weighted enteric tube tip projects over the expected location of the distal stomach. IMPRESSION: As above. PROCEDURE INTERPRETED AT [facility] DEPARTMENT OF RADIOLOGY Final Report Signed by: Dr Teddy Elise
[2016-07-19] MEDS ORDERED: LEVOFLOXACIN INJ 250 MG in PREMIX 1 EACH IV SCH (21:00)
[2016-07-19] MEDS: HALOPERIDOL 5 MG/ML AMP IM PRN (21:29)
--- NOTE | 2016-07-19 22:09 | XRay Report ---
XR chest 1V portable Indication: NG tube placement Comparison: No relevant comparison Technique: Frontal view of the chest and upper abdomen specifically for enteric tube placement. Findings: Enteric tube projects below diaphragm extends past the level of the expected mid stomach. Distal tip not visualized as it is below the image. Side-port suggested within the mid stomach. IMPRESSION: As above. PROCEDURE INTERPRETED AT [facility] DEPARTMENT OF RADIOLOGY Final Report Signed by: Dr Teddy Elise
[2016-07-19] MEDS ORDERED: LEVOFLOXACIN 250 MG TABLET PO ONE (22:16)
[2016-07-20 05:04] LABS: Calcium 8.3 MG/DL (8.5-10.1); Magnesium 1.7 MG/DL (1.8-2.4); Potassium 3.1 MMOL/L (3.5-5.1)
[2016-07-20] MEDS: INSULIN LISPRO 100 UNIT/ML SUBCUT SCH ×4 (05:31→23:24)
[2016-07-20] MEDS: POTASSIUM CHLORIDE 20 MEQ/15 ML UDCUP PER TUBE PRN ×2 (06:03→14:42)
[2016-07-20] MEDS: LEVOTHYROXINE 25 MCG TABLET PO SCH (06:06)
--- NOTE | 2016-07-20 09:24 | Hospitalist Progress Note ---
Assessment and Plan (1) Failure to thrive Status: Acute Assessment and plan: Patient is NPO for PEG tube placement. Pt. still noted to be hypokalemic and hypernatremic. Will continue to monitor. GI following. Current Visit: Yes Qualifiers: Failure to thrive age range: in adult Qualified Code(s): R62.7 - Adult failure to thrive (2) Hypernatremia Status: Acute Current Visit: Yes (3) Hypokalemia Status: Acute Assessment and plan: Patient continues to be hypokalemic. Continue potassium replacement Current Visit: Yes (4) Severe malnutrition Status: Acute Current Visit: Yes (5) Debility Status: Chronic Current Visit: Yes (6) Diabetes Status: Chronic Assessment and plan: Sliding scale insulin in place. Patient has not required coverage. 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 seen and examined this morning. Pt. is NPO today for peg tube placement. Pt. noted to be in restraints at this time. There is not any family present at bedside. Will continue to monitor patient. Exam - Constitutional Vitals: Period Temp Pulse Resp BP Sys/Garcia Pulse Ox Last 24 Hr 97.4 F-98.4 F 65-104 16-22 139-191/67-77 96-100 General appearance: no acute distress, under weight - Head Head exam: Present: normal inspection, normocephalic - Eye Eye exam: Present: EOMI Pupils: Present: CLEMENT - Respiratory Respiratory exam: Present: other (coarse breath sounds) - Cardiovascular Cardiovascular exam: Present: regular rate and rhythm - GI/Abdominal GI/Abdominal exam: Present: normal bowel sounds, soft. Absent: tenderness - Extremities Exam Extremities exam: Present: edema (to bilateral upper extremities left greater than right.) - Neurological Exam Neurological exam: Present: altered - Psychiatric Psychiatric exam: Present: other (unable to assess) - Skin Skin exam: Present: normal color, warm, dry Results - Labs CBC & BMP: 07/19/16 05:18 07/20/16 03:57 Lab Results: I have reviewed the past 24 hour labs
[2016-07-20] MEDS: DESITIN 4OZ/NYSTATIN 15 GRAM MIXTURE PASTE TOP SCH ×2 (11:46→21:23)
--- NOTE | 2016-07-20 13:40 | Gastrointestinal Progress Note ---
Assessment and Plan (1) Severe malnutrition Status: Acute Assessment and plan: The patient appears clinically to have a low pre-albumin level and to have lost a fair amount of weight due to lack of caloric intake, PEG tube would certainly help with this, she will also be able to get her hydration and nutrition and medications without having to rely upon swallowing. Unfortunately this will likely not affect her overall prognosis significantly given her chronic comorbidities. The family member understand that they will likely be prolonging the patient's dying process without clear benefit but wished to proceed with PEG tube placement anyway. They stated that when asked the patient about this earlier in the previous hospitalization that she indicated that she wanted "to live". We will plan on PEG tube placement on 05/18/16 unless the family changes their minds. 07/17/16--The patient appears to be in some mild failure at this time--we are going to give some Lasix and check a BMP. Feeding tube to be placed tomorrow if the patient is healthy enough to be able to go through this. PEG tube placement tomorrow if the patient's potassium meets criteria and she is well enough to undergo this brief procedure. This was discussed at length with the patient's family and they understand that the patient may during the procedure and that this will not significantly improve her long-term prognosis. Risks of the procedure include: Bleeding, infection, perforation, cardiac and pulmonary compromise--these were reviewed and they wish to proceed. 07/18/16--there are coarse respiratory sounds noted throughout all lung taylor currently with a few fine crackles at the bases/dependent portions of the lung. Sodium this morning noted to be 153 although the potassium was back down to the normal range with the Lasix given. We will await her respiratory status and sodium levels this afternoon on recheck after being given D5W. I am concerned that she remains in a state of mild failure at this time, and I doubt that her sodium will be improved enough that we can proceed with the procedure, we will likely have to give her some Lasix and cut back on the D5W to 70 mL/h. I have discussed the placement of the PEG tube with her son-in-law who is at the bedside and expressed my concerns, especially given this patient's overall prognosis. 07/18/16--patient's sodium remains elevated, her potassium unfortunately has dropped at this point but her lung sounds are improved from yesterday. I agree with the current plan to try and give her 3 water flushes to see if we can improve her sodium is more physiologically. The family is still desiring PEG tube placement. 07/20/16--the patient's potassium is down to further to 3.1 with a elevation in the sodium now up to 157. Lungs sounds improved. She continues to get free water flushes in addition to hypotonic IV fluids, I am wondering at this point whether her nasal bridle might be helpful to keep her from removing the Keofeed feeding tube/NG tube. Current Visit: Yes (2) Failure to thrive Status: Acute Assessment and plan: Patient has had dementia for some time now. She was significantly dehydrated and is an appropriate candidate for hospice. Family members have changed her mind and wish to place PEG tube at this time. We will oblige, given their power of civil attorney. 07/17/16--the patient appears to be in failure right now, note plan for this elaborated in these notes. 07/18/16--potential PEG tube placement later today or tomorrow. 07/19/16--Possible PEG tube tomorrow, if electrolytes meet parameters. 07/20/16--I think at this point serious consideration should be given to sending this patient back to the [facility] with hospice if the family can be convinced that this PEG tube is not going to occur due to electrolyte abnormalities. She should be made comfortable but I believe with her tenuous respiratory status giving her too much fluids may result in a cardiac dysfunction as surely as trying to get her electrolytes into the normal range with high flow of hypotonic IV fluids. The family has unrealistic goals as we are putting this feeding tube so the patient can go on hospice more effectively? Normally at other institutions I might call for ethics consult concerning this particular situation is my own feeling is that we should be withdrawing care and making this patient comfortable as opposed to aggressively seeking PEG placement. Current Visit: Yes Qualifiers: Failure to thrive age range: in adult Qualified Code(s): R62.7 - Adult failure to thrive (3) Hypokalemia Status: Acute Assessment and plan: The patient's potassium is 2.7. Per hospital protocol we need to get this higher than 3.0 in order to proceed with the PEG tube placement. We will recheck on Sunday and possibly Sunday. When the patient was started on feedings we can anticipate seeing some potassium/sodium and magnesium flux due to refeeding phenomenon. We will watch for this. 07/17/16--We Will check this today and again tomorrow morning. I am cutting back on the amount of IV fluids the patient is getting. Hopefully her potassium is above 3.0 and she will meet criteria for PEG tube placement tomorrow should her lungs clear. This would be safer if she had a blood transfusion as well. 07/18/16--continuing to watch the potassium and sodium levels in this patient. Likely will try to put in PEG tube tomorrow if the patient is doing better, I doubt that she will be able tolerate this today. Awaiting laboratories. 07/19/16--potassium level is hypokalemic and would benefit from replacement. The patient is getting free water flushes in order to improve her hypernatremia 200 mL every 4 hours however she is removing her Dobbhoff feeding tube at every opportunity. Hopefully she will be able tolerate this long enough to obtain a more permanent solution for her feeding difficulties. 07/20/16--the patient remains in potassium deficient state. We will continue to observe. Current Visit: Yes (4) Anemia Status: Acute Assessment and plan: Some of this is dilutional, but of note her initial hematocrit was 42.8% and this is dropped down to 20.8% without gross evidence of melena/bright red blood per rectum or other evidence of bleeding. This is been a slow steady drop. We will continue to observe the patient. On physical exam the patient appears to be in failure with a slight amount of tachypnea witnessed and crackles/rales throughout her lung taylor. She does need some blood but will go ahead and give her some Lasix first and cut back her fluids from 125-->50 milliliters per hour. 07/20/16--No change from above. Current Visit: Yes Gastroenterology - PN: Subj Interval history: The patient continues to do somewhat poorly with sodium level now up from 154- 157 despite attempts to give free water, she continues to pull out her IVs with alarming rapidity, I have suggested a nasal bridle to the nursing staff, but I am not sure if they have these at this particular hospital. They are available over [facility] where they worked quite effectively for keeping NG tubes and Dobbhoffs in place. Exam (Progress Note) - Constitutional Vitals: Period Temp Pulse Resp BP Sys/Garcia Pulse Ox Last 24 Hr 97.4 F-98.4 F 99-104 16-22 119-154/67-77 96-100 General appearance: mild distress - Respiratory Respiratory exam: Present: clear to auscultation bilaterally, rhonchi (Coarse throughout the lung taylor) - GI/Abdominal GI/Abdominal exam: Present: normal bowel sounds, tenderness (Mild epigastric tenderness), soft. Absent: ascites, distended, rebound - Neurological Exam Neurological exam: Present: alert, oriented X3 - Psychiatric Psychiatric exam: Present: normal affect, normal mood - Skin Skin exam: Present: warm Results - Labs CBC & BMP: 07/19/16 05:18 07/20/16 03:57
[2016-07-20] MEDS: MAGNESIUM SULF RIDER 2 GM in PREMIX 1 EACH IV PRN ×2 (21:33→23:17)
[2016-07-20] MEDS: HALOPERIDOL 5 MG/ML AMP IM PRN (21:39)
[2016-07-21] MEDS: LEVOTHYROXINE 25 MCG TABLET PO SCH (06:04)
[2016-07-21] MEDS: INSULIN LISPRO 100 UNIT/ML SUBCUT SCH ×3 (06:04→17:30)
[2016-07-21 07:43] LABS: Calcium 8.1 MG/DL (8.5-10.1); Osmolality,Calculated 309.1 MOS/KG (273-304); Potassium 4.2 MMOL/L (3.5-5.1)
[2016-07-21] MEDS ORDERED: FUROSEMIDE 20 MG/2 ML VIAL IV PRN (08:52)
[2016-07-21] MEDS: LEVOFLOXACIN 250 MG TABLET PO SCH (08:54)
[2016-07-21] MEDS ORDERED: MIDAZOLAM 2 MG/2 ML VIAL ONE (09:11)
--- NOTE | 2016-07-21 09:13 | Operative Note ---
Date of procedure: 07/21/16 Pre-op diagnosis: Dehydration, cachexia, poor p.o. intake Post-op diagnosis: other (Moderately severe linear gastritis with heme noted likely due to the previous NG tube insertion in the stomach, biopsies were taken to rule out Helicobacter pylori, 2 cm hiatal hernia also noted as well as some mild duodenitis in the bulb. Successful PEG tube placement.) Procedure: PROCEDURE: Esophagogastroduodenoscopy (EGD) with percutaneous endoscopic gastrostomy (PEG) tube placement with cold biopsy for pathology REFERRING PHYSICIAN: Theodore Hunter MD INDICATIONS: This is a patient who has dehydration with hypernatremia and hypokalemia with cachexia secondary to poor p.o. intake, previously on hospice the family now desires PEG tube placement. Renal dysfunction and prior schizophrenia noted. Patient's sodium level now meets criteria for placement of PEG tube as her potassium is also in the normal range we will proceed. ENDOSCOPIST: Enrico Crump MD ENDOSCOPE: Olympus Video 100 System upper endoscope ASA CLASS: 4 EXAM: CV: Regular rate and rhythm respiratory: Clear to ascultation abdominal: Positive bowel sounds MEDICATION: As per Anesthesia nursing protocol, see their notes PROCEDURE: After discussion of the potential risks and benefits of upper endoscopy and PEG placement, the informed consent was obtained. The patient was then placed in the left lateral decubitus position where sedation was achieved as noted above. Esophageal intubation was performed without difficulty , and the endoscope was advanced through the esophagus, stomach and duodenum. A slow withdrawal was then performed with retroflexion in the stomach for careful inspection of the incisura angularis, fundus and cardia. The scope was then returned to a neutral position and withdrawn through the esophagus. The patient tolerated the procedure well and without complication. BIOPSIES: Gastric antrum/body PHOTOGRAPHS: Obtained FINDINGS: Hypopharynx and Larynx: Normal Esohagoscopy Upper and middle thirds: Normal Lower third Normal Esophogastric junctions: No evidence of erosion, or [place]'s epithelium Gastroscopy: Cardia/Fundus: 2 cm hiatal hernia Body: Linear erosive gastritis, biopsied Antrum and pylorus linear erosive gastritis with few erosions. Biopsies were obtained to look for Helicobacter pylori Duodenoscopy: Bulb mild patchy duodenitis Second and third portions: Normal PEG Kit/tube size: [employer] 20 [place] PEG tube PEG Placement: After insufflation of the stomach with the prior procedure proper positioning was determined through transillumination and direct pressure with one to one transmission through the abdominal wall. The abdomen was sterilely prepped and draped, injected with 1% lidocaine and a 1 cm incision was cut in the external skin to accommodate the PEG tube. Using standard [place] "pull" technique, a catheter was inserted into the stomach (using a fluid filled syringe with back-suction to examine for interposed hollow organs) and a string was advanced into the stomach. This was snared through the scope, pulled through the mouth and tied to the PEG tube. The feeding tube was then pulled down into the stomach and out the abdominal wall, and a hub appropriately placed at the base to provide traction between internal hub and external skin. The tube was trimmed, dressed and a second look with the endoscope used to confirm position and function of the tube. The procedure was tolerated well and without complication. IMPRESSION: Moderately severe linear gastritis with heme noted likely due to the previous NG tube insertion in the stomach, biopsies were taken to rule out Helicobacter pylori, 2 cm hiatal hernia also noted as well as some mild duodenitis in the bulb. Successful PEG tube placement. RECOMMENDATIONS: Maintain head of bed at 30 degrees Flush the PEG tube with 30 cc of water or saline every 4 hours Obtain (if not done already) nutritional consult to determine optimal feeding rate, continuous vs. bolus, and any hydration requirements necessary. Meds may be crushed and flushed through PEG in 12 hours, followed by 10 ml of water, as per the patient's attending physcian. Feeding though the tube may start at 12 hours with an initial rate of 30 ml/ hour advancing by 10 ml's every four hours until goal rate achieved. Hold tube feeds for residuals greater than 100 ml, checked each shift. Abdominal binder needs to be in place at all times to protect the PEG tube. This patient may need restraints and/or mittens in order to keep her from displacing the PEG tube. This was mentioned to the patient's family prior to the placement of the PEG tube. Enrico Crump MD Copy to: Theodore Hunter MD Anesthesia: MAC Surgeon / Physician: Enrico Crump Estimated blood loss: minimal Specimens: other Condition: stable Disposition: post procedure unit (G.I. Suite) Results - Labs CBC & BMP: 07/19/16 05:18 07/21/16 06:42 Discharge Plan - Discharge Medications No Action Memantine [Namenda] 10 mg PO BID Donepezil [Aricept] 5 mg PO BEDTIME Glucagon 1 mg IM PRN PRN PRN Reason: Glucose Management Aspirin EC Tab 81 mg PO DAILY Skin Healing Oint (Aquaphor) [Aquaphor] 1 applic TOP PRN PRN #0 ointment PRN Reason: Dry Skin Potassium Chloride [Klor-Con 8] 8 meq PO BID Divalproex Sodium 250 mg PO TID Bacitracin Oint 1 applic TOP DAILY ointment Levothyroxine Inj [Synthroid Inj] 50 mcg IV DAILY@0700 vial Pentoxifylline [TRENtal] 400 mg PO TID tablet amLODIPine [Norvasc] 5 mg PO DAILY tablet cloNIDine 0.2 MG/24 HR PATCH [Evprsjhx-MKV-1 Patch] 1 patch TRANSDERM Q7DAY patch Metoprolol Tartrate Tab [Lopressor Tab] 25 mg PO DAILY - Follow Up or Referral - Forms/Instructions
--- NOTE | 2016-07-21 09:32 | Gastrointestinal Progress Note ---
Assessment and Plan (1) Severe malnutrition Status: Acute Assessment and plan: The patient appears clinically to have a low pre-albumin level and to have lost a fair amount of weight due to lack of caloric intake, PEG tube would certainly help with this, she will also be able to get her hydration and nutrition and medications without having to rely upon swallowing. Unfortunately this will likely not affect her overall prognosis significantly given her chronic comorbidities. The family member understand that they will likely be prolonging the patient's dying process without clear benefit but wished to proceed with PEG tube placement anyway. They stated that when asked the patient about this earlier in the previous hospitalization that she indicated that she wanted "to live". We will plan on PEG tube placement on 05/18/16 unless the family changes their minds. 07/17/16--The patient appears to be in some mild failure at this time--we are going to give some Lasix and check a BMP. Feeding tube to be placed tomorrow if the patient is healthy enough to be able to go through this. PEG tube placement tomorrow if the patient's potassium meets criteria and she is well enough to undergo this brief procedure. This was discussed at length with the patient's family and they understand that the patient may during the procedure and that this will not significantly improve her long-term prognosis. Risks of the procedure include: Bleeding, infection, perforation, cardiac and pulmonary compromise--these were reviewed and they wish to proceed. 07/18/16--there are coarse respiratory sounds noted throughout all lung taylor currently with a few fine crackles at the bases/dependent portions of the lung. Sodium this morning noted to be 153 although the potassium was back down to the normal range with the Lasix given. We will await her respiratory status and sodium levels this afternoon on recheck after being given D5W. I am concerned that she remains in a state of mild failure at this time, and I doubt that her sodium will be improved enough that we can proceed with the procedure, we will likely have to give her some Lasix and cut back on the D5W to 70 mL/h. I have discussed the placement of the PEG tube with her son-in-law who is at the bedside and expressed my concerns, especially given this patient's overall prognosis. 07/18/16--patient's sodium remains elevated, her potassium unfortunately has dropped at this point but her lung sounds are improved from yesterday. I agree with the current plan to try and give her 3 water flushes to see if we can improve her sodium is more physiologically. The family is still desiring PEG tube placement. 07/20/16--the patient's potassium is down to further to 3.1 with a elevation in the sodium now up to 157. Lungs sounds improved. She continues to get free water flushes in addition to hypotonic IV fluids, I am wondering at this point whether her nasal bridle might be helpful to keep her from removing the Keofeed feeding tube/NG tube. 07/20/16--patient's potassium is back in the normal range as is the sodium, PEG tube placed today without difficulty. The patient does have linear gastritis likely due to the NG tube placement previously. Biopsies taken for Helicobacter pylori. Duodenum appears normal as does the esophagus. Feedings to be started in the next 12 hours. It will be crucial to keep this patient with an abdominal binder to prevent her from removing the PEG tube Current Visit: Yes (2) Failure to thrive Status: Acute Assessment and plan: Patient has had dementia for some time now. She was significantly dehydrated and is an appropriate candidate for hospice. Family members have changed her mind and wish to place PEG tube at this time. We will oblige, given their power of erisa attorney. 07/17/16--the patient appears to be in failure right now, note plan for this elaborated in these notes. 07/18/16--potential PEG tube placement later today or tomorrow. 07/19/16--Possible PEG tube tomorrow, if electrolytes meet parameters. 07/20/16--I think at this point serious consideration should be given to sending this patient back to the [facility] with hospice if the family can be convinced that this PEG tube is not going to occur due to electrolyte abnormalities. She should be made comfortable but I believe with her tenuous respiratory status giving her too much fluids may result in a cardiac dysfunction as surely as trying to get her electrolytes into the normal range with high flow of hypotonic IV fluids. The family has unrealistic goals as we are putting this feeding tube so the patient can go on hospice more effectively? Normally at other institutions I might call for ethics consult concerning this particular situation is my own feeling is that we should be withdrawing care and making this patient comfortable as opposed to aggressively seeking PEG placement. 07/21/16--PEG tube placed without difficulty, we can start using this another 12 hours. It is my strong suggestion this patient be fitted with an abdominal binder at this time and this needs to stay in place at all times. Patient will also likely need to be restrained and may need mittens in order to keep from removing this PEG tube. Current Visit: Yes Qualifiers: Failure to thrive age range: in adult Qualified Code(s): R62.7 - Adult failure to thrive (3) Hypokalemia Status: Acute Assessment and plan: The patient's potassium is 2.7. Per hospital protocol we need to get this higher than 3.0 in order to proceed with the PEG tube placement. We will recheck on Sunday and possibly Sunday morning. When the patient was started on feedings we can anticipate seeing some potassium/sodium and magnesium flux due to refeeding phenomenon. We will watch for this. 07/17/16--We Will check this today and again tomorrow morning. I am cutting back on the amount of IV fluids the patient is getting. Hopefully her potassium is above 3.0 and she will meet criteria for PEG tube placement tomorrow should her lungs clear. This would be safer if she had a blood transfusion as well. 07/18/16--continuing to watch the potassium and sodium levels in this patient. Likely will try to put in PEG tube tomorrow if the patient is doing better, I doubt that she will be able tolerate this today. Awaiting laboratories. 07/19/16--potassium level is hypokalemic and would benefit from replacement. The patient is getting free water flushes in order to improve her hypernatremia 200 mL every 4 hours however she is removing her Dobbhoff feeding tube at every opportunity. Hopefully she will be able tolerate this long enough to obtain a more permanent solution for her feeding difficulties. 07/20/16--the patient remains in potassium deficient state. We will continue to observe. 07/21/16--potassium is been improved. Current Visit: Yes (4) Anemia Status: Acute Assessment and plan: Some of this is dilutional, but of note her initial hematocrit was 42.8% and this is dropped down to 20.8% without gross evidence of melena/bright red blood per rectum or other evidence of bleeding. This is been a slow steady drop. We will continue to observe the patient. On physical exam the patient appears to be in failure with a slight amount of tachypnea witnessed and crackles/rales throughout her lung taylor. She does need some blood but will go ahead and give her some Lasix first and cut back her fluids from 125-->50 milliliters per hour. 07/20/16--No change from above. 07/21/16--Patient stable. Current Visit: Yes Gastroenterology - PN: Subj Interval history: No new complaints. The patient's sodium level is down to 149, potassium is above 4. She is ready for PEG tube placement. Exam (Progress Note) - Constitutional Vitals: Period Temp Pulse Resp BP Sys/Garcia Pulse Ox Last 24 Hr 96.9 F-97.7 F 97-101 18-18 119-150/72-85 94-100 General appearance: no acute distress - Eye Eye exam: Present: EOMI - Respiratory Respiratory exam: Present: clear to auscultation bilaterally, rhonchi - Cardiovascular Cardiovascular exam: Present: regular rate and rhythm - GI/Abdominal GI/Abdominal exam: Present: normal bowel sounds, tenderness (Mild diffuse), soft. Absent: guarding, rebound - Extremities Exam Extremities exam: Absent: edema - Neurological Exam Neurological exam: Present: alert, altered (Schizophrenia, poorly verbal) - Psychiatric Psychiatric exam: Present: anxious - Skin Skin exam: Present: warm Results - Labs CBC & BMP: 07/19/16 05:18 07/21/16 06:42
--- NOTE | 2016-07-21 10:37 | Anesthesia Post-Op ---
Anesthesia Post OP - Post Ansesthetic Evaluation Patient seen in post op: Yes Resp: within normal limits CV: within normal limits Mental: within normal limits Temp: within normal limits [id number]: within normal limits Nausea and Vomiting: within normal limits Pain: within normal limits
[2016-07-21] MEDS: DESITIN 4OZ/NYSTATIN 15 GRAM MIXTURE PASTE TOP SCH ×2 (15:21→21:41)
[2016-07-21] MEDS: DEXTROSE 50% 25 GM/50 ML VIAL IV PRN (16:33)
--- NOTE | 2016-07-21 16:41 | Hospitalist Progress Note ---
Assessment and Plan (1) Status post insertion of percutaneous endoscopic gastrostomy (PEG) tube Status: Acute Current Visit: Yes (2) Dehydration Status: Resolved Current Visit: No (3) Hypertension Status: Chronic Current Visit: No Qualifiers: Hypertension type: essential hypertension Qualified Code(s): I10 - Essential (primary) hypertension (4) Diabetes Status: Chronic Current Visit: Yes Qualifiers: Diabetes mellitus type: type 2 Diabetes mellitus complication status: with circulatory complication Diabetes mellitus complication detail: with peripheral angiopathy without gangrene Diabetes mellitus intermodal dispatcher insulin use : with intermodal dispatcher use Qualified Code(s): E11.51 - Type 2 diabetes mellitus with diabetic peripheral angiopathy without gangrene; Z79.4 - [facility] (current ) use of insulin (5) Debility Status: Chronic Current Visit: Yes (6) Schizophrenia Status: Chronic Current Visit: No Qualifiers: Schizophrenia type: unspecified Qualified Code(s): F20.9 - Schizophrenia, unspecified (7) Dementia Status: Chronic Current Visit: Yes (8) Failure to thrive Status: Acute Current Visit: Yes Qualifiers: Failure to thrive age range: in adult Qualified Code(s): R62.7 - Adult failure to thrive (9) DNR status Status: Chronic Current Visit: Yes Hospitalist: Subjective Interval history: The patient is now status post PEG tube placement. No acute changes. The next 12 hours she will have her feedings restarted. Exam - Constitutional Vitals: Period Temp Pulse Resp BP Sys/Garcia Pulse Ox Last 24 Hr 96.9 F-97.8 F 87-100 18-24 120-150/69-82 89-97 General appearance: under weight, other (Frail) - Head Head exam: Present: normal inspection - ENT ENT exam: Present: normal exam - Respiratory Respiratory exam: Present: clear to auscultation bilaterally - Cardiovascular Cardiovascular exam: Present: regular rate and rhythm - GI/Abdominal GI/Abdominal exam: Present: normal bowel sounds, soft, other (PEG tube in place) - Neurological Exam Neurological exam: Present: alert - Psychiatric Psychiatric exam: Present: normal affect Results - Labs CBC & BMP: 07/19/16 05:18 07/21/16 06:42
[2016-07-22] MEDS: INSULIN LISPRO 100 UNIT/ML SUBCUT SCH ×4 (00:59→18:05)
[2016-07-22] MEDS: LEVOTHYROXINE 25 MCG TABLET PO SCH (06:35)
[2016-07-22 06:48] LABS: Osmolality,Calculated 313.4 MOS/KG (273-304); Potassium 3.9 MMOL/L (3.5-5.1)
[2016-07-22] MEDS: DESITIN 4OZ/NYSTATIN 15 GRAM MIXTURE PASTE TOP SCH ×2 (08:06→20:36)
--- NOTE | 2016-07-22 10:03 | Hospitalist Progress Note ---
Assessment and Plan (1) Failure to thrive Status: Acute Assessment and plan: Continue nutritional support through NG tube. Will need to discuss with family considerations for possible PEG tube placement [facility]. 07/16/16: She has pulled her NG tube out this morning. We will leave out at this time. I have had a long discussion with her daughter, Nydia Campbell, who request discussion with gastroenterology to reconsider PEG tube placement. 07/17/16: She was seen by GI and family has now reconsidered and desire to have PEG tube placement which is tentatively scheduled for 07/18/16. 07/22/16: Patient is now status post PEG tube placement and feedings have been initiated. We will plan on discharge back to the [facility] tomorrow morning if she tolerates her feedings. Current Visit: Yes Qualifiers: Failure to thrive age range: in adult Qualified Code(s): R62.7 - Adult failure to thrive (2) Acute on chronic renal failure Status: Acute Assessment and plan: Creatinine has improved to 4.0 today from a maximum of 6.0. We will continue to hydrate and follow renal function but suspect that she this was an acute on chronic kidney disease. We may be approaching her baseline. 07/16/16: Continuing IV hydration at this point. Laboratory studies are pending. 07/17/16: Creatinine continues to improve and is now down to 2.6. We will continue hydration and follow-up chemistries and renal function in the a.m. 08/18/16: Creatinine continues to improve and is at 1.50. Current Visit: Yes (3) Hypokalemia Status: Resolved Assessment and plan: Replace potassium today and follow-up level in a.m. 07/16/16: Labs currently pending. Will address as needed. 07/17/16: Hypokalemia had resolved and she is now actually hyperkalemic. See plans below. 07/22/16: She is now normokalemic. Current Visit: Yes (4) Diabetes Status: Chronic Assessment and plan: Blood sugars fairly well controlled. Continue current Accu-Cheks with sliding scale insulin. 08/18/16: Blood sugars have been running fairly low. Feedings have now been initiated and will continue to follow. 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 Current Visit: No Qualifiers: Hypothyroidism type: acquired Qualified Code(s): E03.9 - Hypothyroidism, unspecified (6) Bacteremia Status: Resolved Assessment and plan: [place] to be contaminant. Current Visit: Yes (7) DNR status Status: Chronic Current Visit: Yes (8) Anemia Status: Acute Assessment and plan: Patient has had significant drop in H&H and is being transfused per Dr. Crump. Will follow hematocrits and transfuse as needed. GI is following. 07/22/16: She was transfused earlier in the week. She remains hemodynamically stable without any evidence of active bleeding. Current Visit: Yes (9) Hyperkalemia Status: Resolved Assessment and plan: Patient is hyperkalemic. Her oral potassium supplementation as well as her potassium and her IV fluids have been discontinued. She is receiving IV Lasix. We will follow-up potassium level later this morning as well as in the a.m. 07/22/16: She is now normokalemic. Current Visit: Yes Hospitalist: Subjective Interval history: Chart reviewed and patient examined. She did have her PEG tube finally placed yesterday. Feedings have been started early this morning. There is otherwise no significant changes. Exam - Constitutional Vitals: Period Temp Pulse Resp BP Sys/Garcia Pulse Ox Last 24 Hr 97.1 F-97.8 F 87-105 18-24 137-163/72-82 93-100 General appearance: no acute distress, under weight - Head Head exam: Present: normocephalic, atraumatic - Eye Eye exam: Present: EOMI Pupils: Present: CLEMENT - ENT ENT exam: Present: normal exam - Neck Neck exam: Present: normal inspection - Respiratory Respiratory exam: Present: rhonchi - Cardiovascular Cardiovascular exam: Present: regular rate and rhythm, tachycardia - GI/Abdominal GI/Abdominal exam: Present: normal bowel sounds, soft, other (PEG tube in place) . Absent: tenderness - Extremities Exam Extremities exam: Absent: calf tenderness, edema - Back Exam Back exam: Present: normal inspection - Neurological Exam Neurological exam: Present: alert, CN II-XII intact - Skin Skin exam: Present: warm, dry Results - Labs CBC & BMP: 07/19/16 05:18 07/22/16 05:32 Lab Results: I have reviewed the past 24 hour labs
[2016-07-22] MEDS ORDERED: DEXTROSE 5% 1,000 ML IV SCH (10:30)
--- NOTE | 2016-07-22 11:25 | Gastrointestinal Progress Note ---
Assessment and Plan - Time spent with patient Time spent with patient: Greater than 30 minutes (1) Severe malnutrition Status: Acute Current Visit: Yes (2) PEG (percutaneous endoscopic gastrostomy) status Status: Acute Current Visit: Yes (3) Other specified counseling Status: Acute Current Visit: Yes Exam (Progress Note) - Constitutional Vitals: Period Temp Pulse Resp BP Sys/Garcia Pulse Ox Last 24 Hr 97.1 F-97.8 F 94-105 18-24 137-163/72-79 97-100 Results - Labs CBC & BMP: 07/19/16 05:18 07/22/16 05:32 Note Addendum: PLEASE NOTE -- automatic citation of patient information is unavoidable in this electronic note. I have made a reasonable effort to review the information cited , but it is not a part of my evaluation, impression, or recommendation unless specifically discussed in the dictated text that follows. As well, voice recognition software was used in the creation of this clinical note. Reasonable effort was made to identify and correct gross errors. Despite proofreading, errors in doctor of podiatric medicine may be present, including nonsense verbiage at times. If you encounter such an error, please contact me at for discussion and correction. -- Lucille Chief complaint: PEG placement Subjective: the patient is an 80-year-old female followed in the hospital by Dr. Crump for severe malnutrition and failure to thrive. A PEG tube was successfully placed yesterday. The PEG has been used successfully for nutrition and medication. There is no report of problem with the device. Medications: Haldol, Humalog, Levaquin, Synthroid, magnesium sulfate, potassium chloride Review of Symptoms: 12 point review of symptoms was negative except as noted above Physical examination: Vital Signs: Current vital signs reviewed. General Appearance: lying in bed. Apparently comfortable. Alert but unresponsive. Very thin. Head: Normocephalic. Eyes: no scleral icterus. No scleral injection. No conjunctival pallor. Oral Cavity: Odor of breath was normal. No drooling was observed. Lips showed no abnormalities. Lungs: Respiration rhythm and depth was normal. Cardiovascular: Heart rate and rhythm were normal. Abdomen: abdomen was not distended. Abdominal auscultation revealed no abnormalities. Ascites was not discovered. Abdominal palpation revealed no tenderness and no hepatosplenomegaly. PEG tube was in place with dry dressing overlying. The external bumper was a little tight and I asked nursing staff to loosen a bit. Musculoskeletal System: musculoskeletal system was grossly normal. Neurological: patient was alert but not responsive to questioning Skin: Gen. appearance was normal. Color and pigmentation were normal. No skin lesions were appreciated. Laboratory: reviewed Radiology: reviewed with no pertinent changes noted. Impressions: 1. Malnutrition -- the patient is tolerating supplemental nutrition through the PEG. Nutrition medicine has been consulted for recommendations regarding same. No further gastrointestinal recommendations at this time. 2. PEG placement -- no evidence of complication at this point. Bumper needs to be loosened a bit. We would like to see about 3 to 5 mm of axial play. Okay to continue using PEG for nutrition, hydration, and medication as indicated. 3. Other specified counseling -- Patient seen for greater than 30 minutes. Greater than 50% of this time was spent counseling regarding differential diagnosis, likely diagnosis,, diagnostic and therapeutic options, risks, benefits, and alternatives to procedures and medications, informed consent, and plan of care generally. Patient has expressed understanding and wishes to proceed. Recommendations: -- okay to continue using PEG for hydration, nutrition, and medication as indicated loosen external bumper (goal is 3-5 mm of axial play) -- dietary recommendations per the nutrition service -- we will continue to follow with you
[2016-07-23] MEDS: INSULIN LISPRO 100 UNIT/ML SUBCUT SCH ×4 (00:55→16:59)
[2016-07-23] MEDS: LEVOTHYROXINE 25 MCG TABLET PO SCH (06:09)
[2016-07-23 06:41] LABS: Calcium 8.1 MG/DL (8.5-10.1); Osmolality,Calculated 311.7 MOS/KG (273-304); Potassium 3.8 MMOL/L (3.5-5.1)
--- NOTE | 2016-07-23 07:28 | Discharge Summary ---
Hospital Course - Hospital Course Hospital Course: Ms. Olea is an 80-year-old female with a past medical history of non-insulin- dependent diabetes mellitus, dementia, chronic renal failure, peripheral vascular disease, hypertension who is brought to the emergency room via EMS for further evaluation of acute mental status changes and lethargy. Patient was a resident at the [facility] and was on the hospice service. Patient was not taking anything by mouth on admission but family requested no PEG at that time. The patient was admitted with hypotension which was felt secondary to significant dehydration with a sodium of 171. She had multiple electrolyte abnormalities which were addressed as well. She was noted to have an acute on chronic kidney failure with a creatinine of 5.10 on admission. During her stay discussion with the family revealed that she would be made a DO NOT RESUSCITATE. She initially had an NG tube placed for feedings however she pulled this out. Further discussions with the family about discharge occurred at which time they requested to see gastroenterology for further discussion on enteral feedings. They made the decision to pursue PEG tube placement which was accomplished on 07/21/16. Tube feedings have been initiated and tolerated well and her electrolytes continue to improve with a sodium of 152 and creatinine has improved to 1.50. It was explained that PEG tube would enable us to provide nutrition and water supplementation however did not necessarily reduce the risk of aspiration. At this time because she has no IV access obtainable and PEG tube is now been placed for provision of further nutrition and free water supplementation it is felt that she can be discharged back to the senior living and continue current care as she is at this time a DNR and was previously on the hospice service. - Time spent with patient Time with patient DS: Less than 30 minutes Diagnosis - Discharge Diagnosis (1) Failure to thrive Status: Acute (2) Acute on chronic renal failure Status: Acute (3) Hypokalemia Status: Resolved (4) Diabetes Status: Chronic (5) Hypothyroidism Status: Chronic (6) Bacteremia Status: Resolved (7) DNR status Status: Chronic (8) Anemia Status: Acute (9) Hyperkalemia Status: Resolved Discharge Plan - Discharge Data Disposition: Disch/Xfer to Snf Condition at Discharge: Stable Discharge Diet: other (Glucerna 1.5 at 40 cc/h with 50 cc H2O per hour) Activity: resume usual activities as tolerated Hygiene: other (Continue routine hygiene and skin care) - Discharge Medications New Levothyroxine Tab [Synthroid Tab] 25 mcg PO DAILY@0700 tablet Insulin Lispro [HumaLOG] See Protocol SUBCUT Q6HR unit Continue Donepezil [Aricept] 5 mg PO BEDTIME Aspirin EC Tab 81 mg PO DAILY Divalproex Sodium 250 mg PO TID Pentoxifylline [TRENtal] 400 mg PO TID tablet Discontinued Memantine [Namenda] 10 mg PO BID Glucagon 1 mg IM PRN PRN PRN Reason: Glucose Management Skin Healing Oint (Aquaphor) [Aquaphor] 1 applic TOP PRN PRN #0 ointment PRN Reason: Dry Skin Potassium Chloride [Klor-Con 8] 8 meq PO BID Bacitracin Oint 1 applic TOP DAILY ointment Levothyroxine Inj [Synthroid Inj] 50 mcg IV DAILY@0700 vial amLODIPine [Norvasc] 5 mg PO DAILY tablet cloNIDine 0.2 MG/24 HR PATCH [Gfoqadkn-IUW-0 Patch] 1 patch TRANSDERM Q7DAY patch Metoprolol Tartrate Tab [Lopressor Tab] 25 mg PO DAILY - Follow Up or Referral Follow Up: PCP, [facility] [Other] - 3 Days - Forms/Instructions Additional Discharge Instructions: 1. Patient is DNR. 2. Continue oxygen via facemask and titrate to comfort. 3. Bedside suction as needed. 4. Follow-up laboratory studies to include basic metabolic panel per primary care provider's discretion Exam - Constitutional Vitals: Period Temp Pulse Resp BP Sys/Garcia Pulse Ox Last 24 Hr 97.5 F-98.7 F 94-120 18-21 131-154/61-80 94-100 General appearance: no acute distress - Head Head exam: Present: normocephalic, atraumatic - Eye Eye exam: Present: EOMI Pupils: Present: CLEMENT - ENT ENT exam: Present: normal exam - Neck Neck exam: Present: normal inspection - Respiratory Respiratory exam: Present: rhonchi - Cardiovascular Cardiovascular exam: Present: regular rate and rhythm - GI/Abdominal GI/Abdominal exam: Present: normal bowel sounds, soft, other (PEG tube in place) . Absent: tenderness (PEG tube in place) - Extremities Exam Extremities exam: Absent: calf tenderness, edema - Neurological Exam Neurological exam: Present: alert, CN II-XII intact - Skin Skin exam: Present: warm, dry Discharge Results Procedures and tests throughout hospitalization: Pending Orders 07/24/16 04:00 Basic Metabolic Panel MOTH Magnesium MOTH Phosphorous MOTH Prealbumin MOTH Labs on day of discharge: Labs from last 24 hours 07/23/16 07/23/16 07/22/16 06:00 04:42 23:16 Sodium 152 H Potassium 3.8 Chloride 112 H Carbon Dioxide 32 Anion Gap 11.8 BUN 38 H Creatinine 1.50 H GFR Calculation 32 BUN/Creatinine Ratio 25.00 H Glucose 134 H POC Glucose 107 H 167 H Calculated Osmolality 311.7 H Calcium 8.1 L 07/22/16 07/22/16 07/22/16 15:13 11:20 07:40 Sodium Potassium Chloride Carbon Dioxide Anion Gap BUN Creatinine GFR Calculation BUN/Creatinine Ratio Glucose POC Glucose 76 88 55 L Calculated Osmolality Calcium DS: Provider Date of admission: 07/11/16 18:58 Primary care physician: Carolynn Smith DO Attending physician on admission: Lucas Meyer MD Consults: 07/11/16 20:55 Consult to Dietitian [CONS] Routine Reason for Dietitian: Dietary Consult 07/11/16 20:59 Consult to Pastoral Services [CONS] Routine Comment: Pastoral Screen: Request [employer] Tender Visit Pastoral Screen Source of Request: Family 07/14/16 10:29 Consult to Dietitian [CONS] Routine Reason for Dietitian: TF-Initiate/Manage Consult Comment: initiating tube feedings 07/16/16 07:25 Consult to Dietitian [CONS] Routine Reason for Dietitian: TF-Initiate/Manage Consult Comment: requesting bolus feedings, pt not tolerating continuous feeding 07/16/16 09:59 Consult to Physician [CONS] Routine Comment: consider peg Consulting Provider: Enrico Crump Person Notified: Dr Crump Date Notified: 07/16/16 Time Notified: 10:50 07/21/16 09:37 Consult to Dietitian [CONS] Routine Reason for Dietitian: TF-Initiate/Manage Consult Comment: Tube feeding recommendations Discharging clinician: Darcy Stewart Expected date of discharge: 07/23/16
[2016-07-23] MEDS: LEVOFLOXACIN 250 MG TABLET PO SCH (09:14)
[2016-07-23] MEDS: DESITIN 4OZ/NYSTATIN 15 GRAM MIXTURE PASTE TOP SCH (09:22)
[2016-07-23 16:33] VITALS: BP 150/68
--- NOTE | 2016-07-24 12:25 | Pathology Report from [facility] ---
[facility] ACCESSION # : [id number] PATIENT NAME : Erick Lopez ORDERING DR : Enrico Crump MD CLINICAL HX: Dehydration - Cachexia - Poor P.O. intake POST-OP DX: Erosive gastritis SPECIMEN INFO: KATERYNA GROSS DESCRIPTION: Received in formalin labeled ERICK LOPEZ consists of campbell frey mucosal tissue fragments measuring collectively 0.7 x 0.4 cm submitted in one cassette. DIAGNOSIS FOR ERICK LOPEZ: KATERYNA BIOPSIES: Chronic superficial gastritis with regenerative mucosal changes. H. pylori not seen on special stain. COLLECTED DATE: 07/23/2016 [facility] REPORT DATE: 07/24/2016 ELECTRONICALLY SIGNED BY: Brittany Chicas M.D. 07/24/2016 - 10:17:40 [facility]
== END 2016-07-23 18:17 | DRG 682 ==
LOC: EDBD → EDUNIT# → N.ED 14:35 → SUATTDRO 18:58 → N.EDINP 19:24 → N.ICU 19:40 → N.5E 07-13 21:01
PROVIDERS: ADMIT Internal Medicine; ATTEND Hospitalist
PROC: EGDWPEG (ICD-10-PCS; 2016-07-21 08:35)

== ENCOUNTER 2016-08-03 18:08 | Inpatient (IN) ==
--- NOTE | 2016-08-03 18:45 | XRay Report ---
Exam: XR chest 1V portable Date: 08/03/2016 6:24 PM Indication: Chest pain shortness of breath Comparison: 07/19/2016 Technical: AP portable Findings: Nasogastric tube has been removed. There is chronic elevation right hemidiaphragm. Heart is normal in size. ASVD is present. Mild scarring in the perihilar region. No pneumothorax. The bony structures reveal lateral marginal osteophytes within the thoracolumbar junction. Oxygen tubing superimposes exam. External cardiac leads are present. Impression: 1. Removal nasogastric tube 2. Improved aeration in the lung taylor bilaterally with decreasing alveolar interstitial infiltrates with no obvious acute infiltrate today. PROCEDURE INTERPRETED AT [facility] DEPARTMENT OF RADIOLOGY Final Report Signed by: Dr. Ney Ovalles
[2016-08-03] MEDS ORDERED: SODIUM CHLORIDE 0.9% 500 ML IV STA (19:00)
[2016-08-03] MEDS ORDERED: PIPERACILLIN/TAZOBACTAM 3,375 MG in SODIUM CHLORIDE 0.9% 100 ML IV STA (19:00)
[2016-08-03] MEDS ORDERED: DILTIAZEM 50 MG/10 ML VIAL IV STA (19:00)
[2016-08-03] MEDS ORDERED: DILTIAZEM INJ 100 MG in SODIUM CHLORIDE 0.9% 100 ML IV SCH (19:00)
[2016-08-03] MEDS ORDERED: DILTIAZEM 50 MG/10 ML VIAL IV ONE (19:16)
[2016-08-03] MEDS ORDERED: PIPERACILLIN/TAZOBACTAM 3,375 MG VIAL IV ONE (19:16)
[2016-08-03 19:37] LABS: Ammonia 26 UMOL/L (11-32)
[2016-08-03 19:41] LABS: Lactic Acid 11.5 MMOL/L (0.4-2.0)
[2016-08-03 19:44] LABS: Alanine Aminotransferase 17 U/L (13-56); Albumin 2.3 G/DL (3.4-5.0); Alkaline Phosphatase 123 U/L (45-117); Amylase 90 U/L (25-115); Aspartate Amino Transferase 29 U/L (0-37); Blood Urea Nitrogen 48 MG/DL (7-18); Calcium 9.8 MG/DL (8.5-10.1); Glucose 116 MG/DL (74-106); Magnesium 2.6 MG/DL (1.8-2.4); Osmolality,Calculated 292.4 MOS/KG (273-304); Potassium 5.1 MMOL/L (3.5-5.1); Sodium 140 MMOL/L (136-145); Total Protein 6.5 G/DL (6.4-8.3)
[2016-08-03 19:46] LABS: Troponin I Only 0.414 NG/ML (0.00-0.045)
--- NOTE | 2016-08-03 19:59 | XRay Report ---
Exam: XR abdomen 2V Date: 08/03/2016 7:00 PM Indication: Abdominal pain Comparison: None Technical: Supine Findings: Large volume stool is present in the rectal ampulla along the left colon. There is elevation the right hemidiaphragm. Degenerative changes present thoracolumbar spine. Feeding tube superimposes the left upper abdomen. The renal shadows are obscured. The spleen and liver shadow are not well seen. Vascular plaque in aorta iliac vessels. Impression: 1. Constipation 2. Feeding tubes superimposes the left upper abdomen. There are suggestion of some atypical air present over the left upper mid abdomen underlying abscess collection cannot be excluded. CT is recommended abdomen pelvis 3. Degenerative spondylosis changes thoracolumbar spine PROCEDURE INTERPRETED AT [facility] DEPARTMENT OF RADIOLOGY Final Report Signed by: Dr. Ney Ovalles
[2016-08-03] MEDS ORDERED: PHENYLEPHRINE DRIP 40 MG/250 ML PREMIX IV ONE (20:03)
[2016-08-03] MEDS: PHENYLEPHRINE DRIP 40 MG/250 ML PREMIX IV SCH (20:09)
--- NOTE | 2016-08-03 20:39 | Emergency Department Note ---
Hung Jones Hilary, am scribing for, and in the presence of, Humberto Devine MD 19:14. Nilson Jones Charles R, MD, personally performed the services described in this documentation, ascribed by An Persaud in my presence, and it is both accurate and complete 038 . Arrival - Arrival Chief Complaint: Altered Mental Status ED Nursing Triage Note: Brought in per EMS for further evaluation of altered mental status onset today per alf staff. EMS reports patient with shortness of breath. Redness and edema noted to right abdomen around PEG tube site. Eyes open, non-verbal. Mode of Arrival: Stretcher Limitations: Altered Mental Status Source: Family, RN Notes Reviewed Time Seen by Provider: 08/03/16 18:21 - History of Present Illness HPI Narrative: Pt is a 80 y/o black female brought into the ED via EMS from [facility] for c/o infected peg tube which onset today. Pts daughter is in the room and reports that she had her peg tube put in 2 weeks ago and today the alf called to tell her that they think it is infected. Pt is in an altered state and does not give any hx. No other complaints or problems stated in the ED. Onset (ago): day(s) Consistency: constant Severity: severe Severity scale (1-10): 5 Date of Last Menstrual Period: NA Allergies/Adverse Reactions: Allergies Allergy/AdvReac Type Severity Reaction Status Date / Time benztropine [From Cogentin] Allergy Unknown/Unable Verified 08/03/16 18:43 to obtain egg Allergy Unknown/Unable Verified 08/03/16 18:43 to obtain Home Medications: Home Medications Medication Instructions Recorded Confirmed Type Donepezil [Aricept] 5 mg PEG BEDTIME 07/19/14 08/03/16 History Divalproex Sodium 250 mg PEG TID 01/26/16 08/03/16 History Aspirin EC Tab 81 mg PEG DAILY 03/09/16 08/03/16 History Insulin Lispro [HumaLOG] See Protocol SUBCUT Q6HR unit 07/23/16 08/03/16 Rx Ibuprofen Tab [Motrin Tab] 600 mg PEG Q6H PRN 08/03/16 08/03/16 History Levothyroxine Tab [Synthroid Tab] 25 mcg PEG DAILY@0600 08/03/16 08/03/16 History Pentoxifylline [TRENtal] 400 mg PEG TID 08/03/16 08/03/16 History Review of System - Review of System ROS unobtainable: due to mental status - Review of System Constitutional: Absent: fever Gastrointestinal: Present: other (Peg tube infection) Medical,Surgical,& Family Hx - Medical History Cardio: History of: Hypertension Psychological: History of: Bipolar Disorder, Schizophrenia Neurology: History of: Dementia, Seizures Endocrine: History of: Diabetes Mellitus (NIDDM), Thyroid Disorder Respiratory: No history of: Asthma, Bronchitis, COPD, Intubation, Obstructive Sleep Apnea , Pulmonary Embolism, Pulmonary Hypertension, Lung Cancer Renal: History of: Renal Problems (past episode of renal failure from dehydration) Musculoskeletal: History of: Musculoskeletal Problems (weakness; bed bound patient) Hematology: History of: Anemia (poor nutritional support) Other: History of: Skin Problems (skin wounds to feet), Miscellaneous Medical Problems (anemia/diabetic ulcer left foot) - Surgical History Cardiac Surgeries: Patient Denies: Vascular Access Devices Thoracic Surgeries: Patient denies;: Organ Transplant, Lobectomy Neurologic Surgeries: Patient denies: Neurologic Surgery Abdominal Surgeries: Patient denies: Hernia Repair - Family History Family History: Reports;: Family Diabetes, Family Hypertension - Social History Smoking Status: Never smoker Frequency of Alcohol Use: None Type of Drug Use: None Exam Vital Signs: Vital Signs Temperature 97.9 F 08/03/16 18:17 Pulse Rate 134 H 08/03/16 18:30 Respiratory Rate 27 H 08/03/16 21:35 Blood Pressure 95/46 08/03/16 18:30 O2 Sat by Pulse Oximetry 94 L 08/03/16 18:30 - General General appearance: other (Altered mental status, frail) - Head Head exam: Present: atraumatic, normocephalic - Eye Eye exam: Present: normal appearance, PERRL, EOMI, periorbital swelling (sunken orbitals) - ENT ENT exam: Present: mucous membranes dry, TM's normal bilaterally - Neck Neck exam: Present: full ROM, trachea midline. Absent: tenderness - Chest Chest inspection: Present: symmetric chest wall rise. Absent: tenderness - Respiratory Respiratory exam: Present: normal lung sounds bilaterally - Cardiovascular Cardiovascular exam: Present: irregular rhythm (A.Fib RVR), normal heart sounds. Absent: murmur, rubs, gallop - Abdominal Exam Abdominal exam: Present: soft, tenderness (Pt has a peg tube in her left abdomen , it is indurated, tender, swollen and has exudates coming from around the peg tube), diminished bowel sounds. Absent: distention - Extremities Exam Extremities exam: Present: full ROM. Absent: tenderness - Back Exam Back exam: Present: full ROM. Absent: tenderness - Neurological Exam Neurological exam: Present: alert, oriented X3, CN II-XII intact. Absent: motor sensory deficit - Psychiatric Psychiatric exam: Present: normal affect, normal mood - Skin Skin exam: Present: warm, dry, intact, normal color. Absent: rash Course Course Narrative: Patient became in respiratory distress while in the emergency room. Patient has a PEG tube is dislodged in the subcutaneous tissue of the abdomen with infiltration. Patient also has a right lower lobe pneumonia most likely aspiration pneumonia. Patient is acutely ill critical. Talk to the family they want her a full code. The patient went into respiratory distress she was intubated immediately with a 7.5 ET tube successfully first attempt central line was also placed in a right femoral vein for IV access. It appears that the PEG tube was misplaced not sure when this occurred but there is PEG tube feeding and a large abscess in the ventral wall the abdomen that is not in the abdominal cavity or inside the stomach at all - Consultations Consultation #1: Hospitalist will admit patient Time: 21:34 Consultation #2: Dr. Mullins consulted states patient is be stabilized in ICU before he considers patient to be stable for operation Time: 21:53 Procedures - Central Line Placement Right Femoral MD Prep: mask, gown, gloves Central Line Prep: Chlorhexidine scrub Central Line Lumen Inserted: triple Post Procedure: sutured in place, good blood return, all ports aspirated, flushed, capped, sterile dressing applied Patient Tolerated Procedure: well, no complications Complications: none - Intubation sedative: Etomidate Mg Given: 20 Laryngoscope: fiber optic video scope ET Tube Size: 7.5 ET Tube Uncuffed: No Tube Secured Depth (cm): 22 Tube Secured Location: lips Tube Placement Confirmation: visualized tube passing through cords, equal breath sounds bilaterally, no breath sounds over epigastrium, confirmation detector color change Patient Tolerated Procedure: well, no complications Intubation Complications: none Results - Labs CBC & BMP: 08/03/16 19:07 08/03/16 19:07 Lab Results: I have reviewed the patients labs Labs: Laboratory Tests 08/03/16 08/03/16 19:07 19:07 INR 1.0 PT Patient/Control Mix 11.0 Sodium 140 Potassium 5.1 Chloride 101 Carbon Dioxide 21 Anion Gap 23.1 H BUN 48 H Creatinine 2.00 H BUN/Creatinine Ratio 24.00 H Glucose 116 H Lactic Acid 11.5 H Magnesium 2.6 H Alkaline Phosphatase 123 H Troponin I 0.414 H Albumin 2.3 L Globulin 4.2 H Albumin/Globulin Ratio 0.5 L - Diagnostic Findings Procedure: Abdominal x-ray: report reviewed by me (1. Constipation 2. feeding tubes superimposes the left upper abdomen. There are suggestion of soem atypical air presetn over the left upper mid abdomen underlying abscess collection cannot be excluded. CT is recommended abdomen pelvis 3. Degenerative spondylosis changes thoracolumbar spine), Chest x-ray: report reviewed by me (1. Removal nasogastic tube 2. Improved aeration in the lung taylor bilaterally with decreasing alveolar interstitial infiltrates with no obvious acute infiltrate today. ) Critical Care Time Critical Care Time: Yes Total Critical Care Time: 90 Disposition Clinical Impression: Sepsis, Elevated troponin, Acute respiratory failure, Altered mental status, Status post insertion of percutaneous endoscopic gastrostomy (PEG) tube, In correct position and PEG tube, Abdominal abscess with infiltration, PEG site malfunction, Failure to thrive, Severe malnutrition, Debility, Chronic kidney disease, stage III (moderate), Pneumonia, Ventral wall abdominal abscess Case discussed with: patient, patient's family Disposition: Still a Patient Condition: Critical Time of Disposition: 21:39 Sepsis - Sepsis Classification of Sepsis: Septic Shock - Physical Exam Respiratory exam: rhonchi, wheezes Capillary Refill: Greater Than 3 Seconds Cardiovascular exam: irregular rhythm, tachycardia Skin exam: mottled
[2016-08-03 21:41] LABS: Basophils % 0.3 % (0.0-0.8); Eosinophils % 0.1 % (0.00-10.9); Hematocrit 37.8 VOL% (35.7-47.0); Hemoglobin 11.4 GM/DL (12.0-16.0); Immature Granulocytes % 4.9 %; Lymphocytes # 3.3 10*3/uL (1.4-4.0); Lymphocytes % 23.1 % (21.3-54.2); Mean Corpuscular HGB Conc 30.2 GM/DL (32-36); Mean Corpuscular Hemoglobin 29 PG (27-34); Mean Corpuscular Volume 94.5 FL (87-102); Mean Platelet Volume 12.2 FL (9.6-12.0); Monocytes # 1.1 10*3/uL (0.11-0.8); Monocytes % 7.5 % (1.7-12.7); NRBC # 0.41 10*3/uL; Neutrophils # 9.2 10*3/uL (1.4-7.4); Neutrophils % 64.1 % (38.7-73.9); Platelet Count 351 T/CUMM (130-400); White Blood Count 14.4 T/CUMM (4-12)
--- NOTE | 2016-08-03 21:46 | CT Report ---
Exam: CT abdomen pelvis wo con Date: 08/03/2016 7:00 PM Comparison: 03/15/2016 Indication: Abdominal pain and distention PEG tube Total DLP: 237.1 mGy*cm Technical: Images were obtained from the lung bases to the iliac crest continuation through the pelvis without intravenous or oral contrast with axial sagittal coronal imaging available for review. Dose reduction was performed with decreasing kv and mA and automated exposure Findings: Lung bases: Patchy infiltrate in the right base present. Scarring is present in the lung taylor bilaterally with underlying COPD. Liver and Spleen: Unremarkable Gallbladder and Pancreas: Gallbladder is slightly distended. Minimal calcifications along the region of the pancreas is suspected. Adrenals: Unremarkable Kidneys: No obvious obstruction or stones present or hydronephrosis within the kidneys. Stomach: Stomach is filled with fluid and air present. The examination reveals a gastrostomy PEG tube located within the subcutaneous tissue in the left upper abdomen with associated underlying abscess collection extending across the upper abdomen measuring approximately 12 cm x 4.4 cm. Subcutaneous edema is also present and air Retroperitoneum: No enlarged lymph nodes. Aorta and IVC: Vascular plaque in the aorta iliac vessels. No obvious aneurysm IVC without contrast and aorta are not otherwise evaluated.. Mesenteric vascular calcinosis also present. Bowel and Mesentery: Large volume stool present in the colon extending to the rectosigmoid colon. Pelvis: Bladder: Incompletely distended with fluid Fluid: No free fluid identified. Lymph nodes: No enlarged lymph nodes. Pelvic organs: The uterus is poorly delineated suggest previous surgical resection Osseous structures: Degenerative changes of the thoracolumbar spine. Facet arthropathy is present. Impression: 1. Large abscess collection in the subcutaneous tissue in the left upper abdomen with mild positioning of the gastrostomy PEG tube the subcutaneous tissue. 2. No obvious pneumoperitoneum clearly demonstrated 3. Vascular calcinosis 4. Degenerative spondylosis and facet arthropathy of the lumbosacral spine 5. Constipation. Critical test report called to Dr. Devine at the time of dictation PROCEDURE INTERPRETED AT [facility] DEPARTMENT OF RADIOLOGY Final Report Signed by: Dr. Ney Ovalles
[2016-08-03] MEDS ORDERED: VANCOMYCIN INJ 750 MG in SODIUM CHLORIDE 0.9% 250 ML IV STA (21:54)
[2016-08-03] MEDS ORDERED: SODIUM CHLORIDE 0.9% 1,650 ML IV ONE (21:54)
--- NOTE | 2016-08-03 21:56 | XRay Report ---
Exam: XR chest 1V portable Date: 08/03/2016 9:30 PM Indication: Endotracheal tube placement Comparison: 08/03/2016 6:31 PM Technical: AP portable Findings: Endotracheal tube has been placed located at the level aortic knob. There is elevation right hemidiaphragm. No pneumothorax. Mild scarring and stranding in the perihilar regions. Degenerative changes present thoracolumbar spine. ASVD is present. Impression: 1. Interval placement endotracheal tube at the level aortic knob 2. No significant interval change otherwise noted. PROCEDURE INTERPRETED AT [facility] DEPARTMENT OF RADIOLOGY Final Report Signed by: Dr. Ney Ovalles
[2016-08-03 22:14] LABS: ABG Base Excess -15.3 MMOL/L (-2.5-2.5); ABG HCO3 11.5 MMOL/L (20-26); ABG Oxygen Saturation 89.7 % (95-100); ABG PCO2 30.5 MM HG (35-48); ABG PO2 68.3 MM HG (80-95); ABG TCO2 12.4 MMOL/L (23-27); Allen Test Positive; Pt O2 Delivery Device Ventilator
--- NOTE | 2016-08-03 22:16 | General Surgery Consult Note ---
Assessment and Plan - Time spent with patient Time spent with patient: Less than 30 minutes (1) Status post insertion of percutaneous endoscopic gastrostomy (PEG) tube Status: Acute Assessment and plan: Impression: Status post PEG tube placement that is now become dislodged 2. Abdominal wall swelling probably secondary to subcutaneous tube feedings Plan: 1. Resuscitation of patient status 2. Consider surgery to remove the PEG tube and open up the abdominal wall for drainage and treatment Current Visit: Yes (2) Acute respiratory failure Status: Acute Assessment and plan: Impression. Acute respiratory failure requiring intubation. Current Visit: Yes (3) Hypotension Status: Acute Assessment and plan: Impression: Hypotension secondary to prior dehydration and questionable septic changes. Plan: IV antibiotics and resuscitation with fluid Current Visit: No History of Present Illness Chief complaint: Respiratory arrest with swelling about the PEG tube History of present illness: Ms. Olea is a 80 year old female -[place] who has a PEG tube in place that was placed recently because the patient had stopped eating. He went to the halfway were they apparently were using the PEG tube. They called the family yesterday with report of some redness and swelling of her abdominal wall. Apparently he was still using the PEG tube at this time. She was brought to the emergency room where she was in respiratory distress and had to be intubated at this time. She has a PEG tube in place with an area of redness and fullness just lateral and below it. CT scan abdomen and pelvis was performed which did not show any pre-free fluid or air in the abdominal cavity. Unfortunately the PEG tube is not in the stomach it seems to be in the subcutaneous tissue at this point. There is a cavity of probably fluid and air around it at this time probably related to feedings going in this area.. Right now the patient is in some degree of distress and she needs to be resuscitated for we could safely take her to surgery for any particular thing. We will see if overnight with her resuscitation that she be able to go to surgery tomorrow and have this PEG tube removed this abdominal wall debrided. Home Medications Medication Instructions Recorded Confirmed Type Donepezil [Aricept] 5 mg PEG BEDTIME 07/19/14 08/03/16 History Divalproex Sodium 250 mg PEG TID 01/26/16 08/03/16 History Aspirin EC Tab 81 mg PEG DAILY 03/09/16 08/03/16 History Insulin Lispro [HumaLOG] See Protocol SUBCUT Q6HR unit 07/23/16 08/03/16 Rx Ibuprofen Tab [Motrin Tab] 600 mg PEG Q6H PRN 08/03/16 08/03/16 History Levothyroxine Tab [Synthroid Tab] 25 mcg PEG DAILY@0600 08/03/16 08/03/16 History Pentoxifylline [TRENtal] 400 mg PEG TID 08/03/16 08/03/16 History Allergies Allergy/AdvReac Type Severity Reaction Status Date / Time benztropine [From Cogentin] Allergy Unknown/Unable Verified 08/03/16 18:43 to obtain egg Allergy Unknown/Unable Verified 08/03/16 18:43 to obtain Medical,Surgical,& Family Hx - Medical History Cardio: History of: Hypertension Psychological: History of: Bipolar Disorder, Schizophrenia Neurology: History of: Dementia, Seizures Endocrine: History of: Diabetes Mellitus (NIDDM), Thyroid Disorder Respiratory: No history of: Asthma, Bronchitis, COPD, Intubation, Obstructive Sleep Apnea , Pulmonary Embolism, Pulmonary Hypertension, Lung Cancer Renal: History of: Renal Problems (past episode of renal failure from dehydration) Musculoskeletal: History of: Musculoskeletal Problems (weakness; bed bound patient) Hematology: History of: Anemia (poor nutritional support) Other: History of: Skin Problems (skin wounds to feet), Miscellaneous Medical Problems (anemia/diabetic ulcer left foot) - Surgical History Cardiac Surgeries: Patient Denies: Vascular Access Devices Thoracic Surgeries: Patient denies;: Organ Transplant, Lobectomy Neurologic Surgeries: Patient denies: Neurologic Surgery Abdominal Surgeries: Patient denies: Hernia Repair - Family History Family History: Reports;: Family Diabetes, Family Hypertension - Social History Smoking Status: Never smoker Frequency of Alcohol Use: None Type of Drug Use: None ROS unobtainable: due to endotracheal tube Exam - Constitutional Vitals: Period Temp Pulse Resp BP Sys/Garcia Pulse Ox Last 24 Hr 97.9 F-97.9 F 134-140 20-41 95-118/46-50 89-94 General appearance: severe distress - Head Head exam: Present: normal inspection - ENT ENT exam: Present: normal exam - Neck Neck exam: Present: normal inspection - Respiratory Respiratory exam: Present: rales, rhonchi - Cardiovascular Cardiovascular exam: Present: RRR - GI/Abdominal GI/Abdominal exam: Present: hypoactive bowel sounds, mass (Just below the PEG tube), other (PEG tube left upper quadrant with mass and erythematous just below that area. There is tube feeding contents within the PEG tube). Absent: distended - Extremities Exam Extremities exam: Present: normal inspection - Neurological Exam Neurological exam: Present: altered - Skin Skin exam: Present: normal color, warm, dry Results - Labs CBC & BMP: 08/03/16 19:07 08/03/16 19:07 Lab Results: I have reviewed the past 24 hour labs - Diagnostic Findings Procedure: CT Abdomen and Pelvis: report reviewed by me (PEG tube out of the stomach with fluid pocket in the subtenons tissue the abdominal wall)
[2016-08-03 22:19] LABS: ABG PH 7.194 (7.35-7.45)
[2016-08-03] MEDS ORDERED: VANCOMYCIN 1,000 MG VIAL ONE (22:26)
--- NOTE | 2016-08-03 22:38 | Hospitalist History & Physical ---
Assessment and Plan (1) Severe sepsis Status: Acute Assessment and plan: Patient will be admitted to the intensive care unit. Monitor vital signs closely maintain blood pressure above 65 mmHg the mean arterial pressure. Patient will be put on meropenem and vancomycin. This should cover anaerobes aerobes gram-negative and gram positives. Current Visit: Yes (2) Cellulitis, abdominal wall Status: Acute Assessment and plan: Surgical consultation is on board. Will be need to incise and drain the area affected by this PEG tube. There is some food material in the tubing sulci suggesting the tube was being used withall. Current Visit: Yes (3) Acute respiratory failure Status: Acute Assessment and plan: Maintain intubation. ABG will be done and responded to accordingly. Repeat ABG in the morning. Get pulmonary consultation for vent management Current Visit: Yes (4) Altered mental status Status: Acute Assessment and plan: This is all part of the sepsis syndrome. Continue to monitor patient denies Current Visit: Yes (5) Acute on chronic renal failure Status: Acute Assessment and plan: Could be oligoria and ATN. Creatinine is today point and a half above normal. Continue the hydration. Patient will have sometimes some pudding for both medication and nutrition. If she is not able to be extubated tomorrow we will get dietary consultation will recommend on tube feedings assuming stomach will be viable. Current Visit: No History of Present Illness Chief complaint: Severe sepsis/skin soft tissue infection/respiratory failure History of present illness: Ms. Olea is a 80 year old female brought into the ED via EMS from [facility] for c/o infected peg tube which onset today. Pts daughter is in the room and reports that she had her peg tube put in 2 weeks ago and today the long-term called to tell her that they think it is infected. Pt is in an altered state and does not give any hx. The daughter does not know what could have happened at the long-term. I did call [facility] and told to a lady by the name of Mavis who also stated that she has not been there for 2 days but she knew that the patient was at the hospital. There was no report at the long-term stating that the tube had fallen out and he tried to put it back in. The look of things by CT scan he had a tubal seems to be located in the subcutaneous tissue with a an adjacent abscess looking area in the soft tissue. The skin overlying that is obviously cellulitic and swallowing. Patient was first seen and stabilized by the emergency room team. He has a central line in and intubated. Surgical consultation with Dr. Mullins has been called in. Home Medications Medication Instructions Recorded Confirmed Type Donepezil [Aricept] 5 mg PEG BEDTIME 07/19/14 08/03/16 History Divalproex Sodium 250 mg PEG TID 01/26/16 08/03/16 History Aspirin EC Tab 81 mg PEG DAILY 03/09/16 08/03/16 History Insulin Lispro [HumaLOG] See Protocol SUBCUT Q6HR unit 07/23/16 08/03/16 Rx Ibuprofen Tab [Motrin Tab] 600 mg PEG Q6H PRN 08/03/16 08/03/16 History Levothyroxine Tab [Synthroid Tab] 25 mcg PEG DAILY@0600 08/03/16 08/03/16 History Pentoxifylline [TRENtal] 400 mg PEG TID 08/03/16 08/03/16 History Allergies Allergy/AdvReac Type Severity Reaction Status Date / Time benztropine [From Cogentin] Allergy Unknown/Unable Verified 08/03/16 18:43 to obtain egg Allergy Unknown/Unable Verified 08/03/16 18:43 to obtain Medical,Surgical,& Family Hx - Medical History Cardio: History of: Hypertension Psychological: History of: Bipolar Disorder, Schizophrenia Neurology: History of: Dementia, Peripheral Neuropathy, Seizures Endocrine: History of: Diabetes Mellitus (NIDDM), Thyroid Disorder Respiratory: No history of: Asthma, Bronchitis, COPD, Intubation, Obstructive Sleep Apnea , Pulmonary Embolism, Pulmonary Hypertension, Lung Cancer Renal: History of: Renal Problems (past episode of renal failure from dehydration) Musculoskeletal: History of: Musculoskeletal Problems (weakness; bed bound patient) Hematology: History of: Anemia (poor nutritional support) Other: History of: Skin Problems (skin wounds to feet), Miscellaneous Medical Problems (anemia/diabetic ulcer left foot) - Surgical History Cardiac Surgeries: Patient Denies: Vascular Access Devices Thoracic Surgeries: Patient denies;: Organ Transplant, Lobectomy Neurologic Surgeries: Patient denies: Neurologic Surgery Abdominal Surgeries: Patient denies: Hernia Repair - Family History Family History: Reports;: Family Diabetes, Family Hypertension - Social History Smoking Status: Never smoker Frequency of Alcohol Use: None Type of Drug Use: None ROS unobtainable: due to endotracheal tube Review of systems: Scan of 12 system assessment significant with chief complaint and history of presenting illness Exam - Constitutional Vitals: Period Temp Pulse Resp BP Sys/Garcia Pulse Ox Last 24 Hr 97.9 F-97.9 F 134-140 20-41 95-118/46-50 89-94 General appearance: under weight (Intubated and sedated), other - Head Head exam: Present: normocephalic, atraumatic - Eye Pupils: Present: CLEMENT - ENT ENT exam: Present: other (Orally intubated) - Respiratory Respiratory exam: Present: clear to auscultation bilaterally, other - Cardiovascular Cardiovascular exam: Present: tachycardia, other (Sinus control on EKG) - GI/Abdominal GI/Abdominal exam: Present: other (Area around the PEG calculates is a in duration especially going to the left flank area. Obviously cellulitis of the abdominal wall) - Extremities Exam Extremities exam: Present: other (No lesions on the legs also muscle back patient is rather cachectic) - Neurological Exam Neurological exam: Present: other (Intubated and sedated) - Psychiatric Psychiatric exam: Present: other (Intubated and sedated) Results - Labs CBC & BMP: 08/03/16 19:07 08/03/16 19:07 Lab Results: I have reviewed the past 24 hour labs - Diagnostic Findings Procedure: CT: report reviewed by me (See report of abdominal pelvic CT) Quality Measures - VTE Contraindication to Pharmacological VTE Prophylaxis: High Risk of Bleeding
[2016-08-03 23:08] LABS: Atypical Lymphocytes Few; Band Neutrophils 3 % (0-10); Lymphocytes 62 % (20-55); Metamyelocytes 8 %; Nucleated Red Blood Cells 1 (0-5); Platelet Estimate Normal; Segmented Neutrophils 19 % (50-85); Total Cells Counted 100
[2016-08-04 00:45] LABS: Alanine Aminotransferase 16 U/L (13-56); Albumin 1.7 G/DL (3.4-5.0); Alkaline Phosphatase 99 U/L (45-117); Aspartate Amino Transferase 44 U/L (0-37); Blood Urea Nitrogen 50 MG/DL (7-18); Glucose 79 MG/DL (74-106); Osmolality,Calculated 301.6 MOS/KG (273-304); Potassium 5.2 MMOL/L (3.5-5.1); Sodium 146 MMOL/L (136-145)
[2016-08-04 00:48] LABS: Lactic Acid > 15.0 MMOL/L (0.4-2.0)
[2016-08-04] MEDS: metroNIDAZOLE INJ 500 MG in PREMIX 1 EACH IV SCH ×4 (00:53→18:27)
[2016-08-04] MEDS: INSULIN LISPRO 100 UNIT/ML SUBCUT SCH ×4 (02:05→17:33)
[2016-08-04] MEDS: DEXTROSE 5% NACL 0.9% 1,000 ML IV SCH ×5 (02:05→23:52)
[2016-08-04] MEDS: MEROPENEM 500 MG in SODIUM CHLORIDE 0.9% 100 ML IV SCH ×2 (02:08→14:16)
[2016-08-04] MEDS ORDERED: ETOMIDATE 20 MG/10 ML VIAL IV ONE (03:13)
[2016-08-04 03:23] LABS: Allen Test Positive; Pt O2 Delivery Device Ventilator
[2016-08-04 03:24] LABS: ABG Base Excess -10.4 MMOL/L (-2.5-2.5); ABG Oxygen Saturation 83.8 % (95-100); ABG PCO2 33.5 MM HG (35-48); ABG PH 7.276 (7.35-7.45); ABG PO2 54.7 MM HG (80-95); ABG TCO2 14.5 MMOL/L (23-27)
--- NOTE | 2016-08-04 04:44 | EKG Report ---
Stationary ECG Study [facility] ER Test Date: 08/03/2016 6:32:43 PM Pat Name: ERICK LOPEZ Department: Room: 114 Gender: F [employer]: : 1935 Requested by: Braden Green Order Number: [id number] Reading MD: ALEX SIERRA Intervals [place] Rate: 135 P: 999 TN: 0 QRS: 85 QRSD: 86 T: 244 QT: 293 QTc: 372 Interpretive Statements ATRIAL FLUTTER/TACHYCARDIA WITH RAPID VENTRICULAR RESPONSE MODERATE T-WAVE ABNORMALITY, CONSIDER ANTEROLATERAL ISCHEMIA MODERATE T-WAVE ABNORMALITY, CONSIDER INFERIOR ISCHEMIA Electronically Signed On 08-04-16 15:33:38 CDT by ALEX SIERRA [email or web address]
[2016-08-04] MEDS: PHENYLEPHRINE DRIP 40 MG/250 ML PREMIX IV SCH ×3 (04:55→17:19)
[2016-08-04] MEDS ORDERED: LEVOTHYROXINE 25 MCG TABLET PEG SCH (06:00)
[2016-08-04 06:12] LABS: Basophils % 0.1 % (0.0-0.8); Hematocrit 32.2 VOL% (35.7-47.0); Immature Granulocytes % 4.2 %; Immature Granulocytes Absolute 0.64 #; Lymphocytes # 1.8 10*3/uL (1.4-4.0); Lymphocytes % 11.6 % (21.3-54.2); Mean Corpuscular HGB Conc 31.1 GM/DL (32-36); Mean Corpuscular Hemoglobin 29 PG (27-34); Mean Corpuscular Volume 93.1 FL (87-102); Mean Platelet Volume 12.2 FL (9.6-12.0); Monocytes # 0.9 10*3/uL (0.11-0.8); Monocytes % 6.1 % (1.7-12.7); Platelet Count 295 T/CUMM (130-400); Red Blood Count 3.46 MC/CUMM (3.8-5.5); Red Cell Distribution Width 17.1 % (9.3-17.3); White Blood Count 15.4 T/CUMM (4-12)
[2016-08-04] MEDS: LEVOTHYROXINE 100 MCG VIAL IV SCH (06:19)
[2016-08-04 06:21] LABS: INR 1.2; PT Patient Result 12.4 SECS
[2016-08-04 06:35] LABS: Band Neutrophils 20 % (0-10); Lymphocytes 14 % (20-55); Metamyelocytes 1 %; Myelocytes 7 %; Nucleated Red Blood Cells 2 (0-5); Segmented Neutrophils 53 % (50-85); Total Cells Counted 100
[2016-08-04 06:36] LABS: Hypochromasia 1+; Platelet Estimate Adequate
[2016-08-04 06:46] LABS: Alanine Aminotransferase 39 U/L (13-56); Albumin 1.7 G/DL (3.4-5.0); Alkaline Phosphatase 93 U/L (45-117); Aspartate Amino Transferase 114 U/L (0-37); Bilirubin,Total < 0.39 MG/DL (0.2-1.0); Blood Urea Nitrogen 52 MG/DL (7-18); Calcium 8.1 MG/DL (8.5-10.1); Glucose 173 MG/DL (74-106); Osmolality,Calculated 303.8 MOS/KG (273-304); Potassium 4.5 MMOL/L (3.5-5.1); Sodium 144 MMOL/L (136-145); Total Protein 4.9 G/DL (6.4-8.3)
[2016-08-04 06:48] LABS: Amorphous Crystals,Urine Few /HPF (Few); Apearance,Urine CLOUDY (Clear); Bilirubin,Urine Negative (Negative); Blood, Urine Small mg/dL (Negative); Glucose,Urine (UA) 50 mg/dL (Negative); Ketones,Urine 5 mg/dL (Negative); Mucus,Urine Occasional /LPF (Occasional); Nitrite,Urine Negative (Negative); Protein,Urine 100 MG/DL; Urine Specific Gravity 1.025 (1.001-1.035); Urine Urobilinogen < 2.0 EU/DL (0.2-1.0); WBC,Urine 4 /HPF (0-6)
[2016-08-04 06:49] LABS: Urine Color Dark yellow (Yellow)
[2016-08-04] MEDS: DILTIAZEM INJ 100 MG in SODIUM CHLORIDE 0.9% 100 ML IV SCH ×2 (07:07→23:50)
--- NOTE | 2016-08-04 07:18 | EKG Report ---
Stationary ECG Study [facility] ER Test Date: 08/03/2016 6:25:17 PM Pat Name: REICK LOPEZ Department: Room: 114 Gender: F Early Childhood Lead Teacher: : 1935 Requested by: Braden Green Order Number: [id number] Reading MD: ALEX SIERRA Intervals [place] Rate: 139 P: 36 KS: 97 QRS: 81 QRSD: 83 T: 248 QT: 283 QTc: 364 Interpretive Statements SINUS TACHYCARDIA WITH SHORT [place] INTERVAL ST DEVIATION AND MODERATE T-WAVE ABNORMALITY, CONSIDER ANTEROLATERAL ISCHEMIA ST DEVIATION AND MODERATE T-WAVE ABNORMALITY, CONSIDER INFERIOR ISCHEMIA Electronically Signed On 08-04-16 15:32:32 CDT by ALEX SIERRA [email or web address]
[2016-08-04] MEDS ORDERED: SODIUM CHLORIDE 0.9% 500 ML IV ONE (07:48)
[2016-08-04] MEDS: PANTOPRAZOLE 40 MG VIAL IV SCH (08:22)
[2016-08-04] MEDS ORDERED: ASPIRIN EC 325 MG TABLET PO SCH (09:00)
[2016-08-04] MEDS ORDERED: DIVALPROEX 250 MG TABLET PO SCH (09:00)
[2016-08-04] MEDS ORDERED: ROCURONIUM 100 MG/10 ML VIAL IV ONE (09:50)
--- NOTE | 2016-08-04 10:12 | Pulmonology Consult Note ---
History of Present Illness Chief complaint: Mechanical ventilation. Abdominal abscess. History of present illness: Ms. Olea is a 80 year old black female whom I been asked to see in pulmonary consultation for management of mechanical ventilation. This patient was brought to the emergency room from the [facility]. This patient had been on hospice. Family changed her mind. She was found to have an infection at her PEG tube site. This showed extensive involvement of the abdominal wall. Patient also had a marked change in her mentation according to her daughter. Patient has significant respiratory distress and she had acidosis that appeared to be metabolic. She required intubation mechanical ventilation. This patient is nonresponsive therefore the remainder of her review of systems is negative on my exam. Allergies. Eggs and Cogentin Home medicines. See below Past history. Bipolar disorder. Schizophrenia. High blood pressure. Dementia. Peripheral neuropathy. Seizures. Giv-osszhms-srmjfqlhj diabetes mellitus. Hypothyroidism. Past history of renal failure secondary to dehydration. Anemia. History of skin wounds on the feet. The patient has been hospitalized here at [facility] in January 2016, February 2016. March 2016. June 2016. In July 2016. She was last discharged on 07/23/[address] Ney Hoskins. Social history. Patient's been in a shelter on hospice until this admission. Reportedly she never used alcohol or tobacco. Family history. Diabetes and high blood pressure . Chest x-ray. 08/04/1999 17. Elevation of the right hemidiaphragm with preservation of normal curvature normal size heart. Pulmonary arteries are normal. No hilar adenopathy endotracheal tube is in good position calcification aortic knob. No definite infiltrates. No heart failure Echocardiogram. June 2016. Ejection fraction 60% with +2 diastolic discomfort. Mild mitral regurgitation with pulmonary artery pressure 43 Earlier this morning the patient had ABGs on FiO2 of 50% that showed a pH of 7.194, PCO2 of 30.5, PO2 is 68.3 and a bicarb of 11.5. More recently ventilator gases on FiO2 of 50% showed a pH of 7.276, PCO2 33.5, PO2 54.7 and a bicarb of 16. I have made ventilator adjustments. Lab. Admit creatinine was 2.4 with a BUN of 50 and a potassium of 5.2 and a sodium 146. Lactic acid level was greater than 15. Ammonia level was 26. Liver function tests were close to normal protein and albumin were decreased at 4.9 of 1.7. White count is 15,478 segs. H&H 10.0 32.2. Platelets are 295, 000. Urinalysis showed no evidence of infection. Physical exam. Vital signs. See below Face. Symmetrical. No unusual swelling of the lips or tongue. Neck. Symmetrical kyphotic without meningismus. Lymphatics. No submandibular cervical supraclavicular or epitrochlear adenopathy. Chest. Mild coarse large airway congestion. I do not hear any wheezing. Heart. No gallop Abdomen and extremities. Probable abdominal wall abscess. PEG appears to be infected. Infected and ischemic lesions of the fingers and toes. See Dr. Mullins' s note for additional details. Lower extremities. Mild chronic venous stasis with decreased skin turgor. Neurological. Patient is sedated and a complete exam is impossible. Patient had a mental status change prior to admission. The remainder the physical exam is noncontributory. Impression. 1.Acute lactic acidosis with a severe metabolic acidosis most likely secondary to hypotension and sepsis 2. Probable abdominal wall abscess near PEG tube site 3.Acute on chronic renal failure 4. Acute respiratory failure for oxygen. 5. Infectious and ischemic lesions of fingers and toes. See Dr. Mullins's note. 6. Recent hospice care 7. History of dementia and schizophrenia 8. History of seizure disorder 9. Diabetes mellitus 10. Hypothyroidism. Plan. 1. Mechanical ventilation weaning protocol 2. Physical therapy consultation based on mechanical ventilation protocol 3. Doppler venograms of the lower extremities 4. Antibiotics noted. This includes meropenem Flagyl and vancomycin. 5. Monitor renal function. Consider renal consultation. 6. I have increased patient's fluid to D5 normal saline at 125 cc/h 7. Daily chest x-rays ABGs and lab. 8. See orders Home Medications Medication Instructions Recorded Confirmed Type Donepezil [Aricept] 5 mg PEG BEDTIME 07/19/14 08/03/16 History Divalproex Sodium 250 mg PEG TID 01/26/16 08/03/16 History Aspirin EC Tab 81 mg PEG DAILY 03/09/16 08/03/16 History Insulin Lispro [HumaLOG] See Protocol SUBCUT Q6HR unit 07/23/16 08/03/16 Rx Ibuprofen Tab [Motrin Tab] 600 mg PEG Q6H PRN 08/03/16 08/03/16 History Levothyroxine Tab [Synthroid Tab] 25 mcg PEG DAILY@0600 08/03/16 08/03/16 History Pentoxifylline [TRENtal] 400 mg PEG TID 08/03/16 08/03/16 History Allergies Allergy/AdvReac Type Severity Reaction Status Date / Time benztropine [From Cogentin] Allergy Unknown/Unable Verified 08/03/16 18:43 to obtain egg Allergy Unknown/Unable Verified 08/03/16 18:43 to obtain Exam (Pulmonay) H&P - Constitutional Vitals: Period Temp Pulse Resp BP Sys/Garcia Pulse Ox Last 24 Hr 96.6 F-98 F 83-140 18-41 75-118/41-69 89-100 Medical,Surgical,& Family Hx - Medical History Cardio: History of: Hypertension Psychological: History of: Bipolar Disorder, Schizophrenia Neurology: History of: Dementia, Peripheral Neuropathy, Seizures Endocrine: History of: Diabetes Mellitus (NIDDM), Thyroid Disorder Respiratory: No history of: Asthma, Bronchitis, COPD, Intubation, Obstructive Sleep Apnea , Pulmonary Embolism, Pulmonary Hypertension, Lung Cancer Renal: History of: Renal Problems (past episode of renal failure from dehydration) Musculoskeletal: History of: Musculoskeletal Problems (weakness; bed bound patient) Hematology: History of: Anemia (poor nutritional support) Other: History of: Skin Problems (skin wounds to feet), Miscellaneous Medical Problems (anemia/diabetic ulcer left foot) - Surgical History Cardiac Surgeries: Patient Denies: Vascular Access Devices Thoracic Surgeries: Patient denies;: Organ Transplant, Lobectomy Neurologic Surgeries: Patient denies: Neurologic Surgery Abdominal Surgeries: Patient denies: Hernia Repair Reproductive Surgeries: Surgical HX of;: Hysterectomy - Family History Family History: Reports;: Family Cancer, Family Diabetes, Family Hypertension, Family Stroke - Social History Smoking Status: Never smoker Frequency of Alcohol Use: None Type of Drug Use: None Results - Labs CBC & BMP: 08/04/16 05:51 08/04/16 05:51 Quality Measures - VTE Contraindication to Pharmacological VTE Prophylaxis: High Risk of Bleeding
--- NOTE | 2016-08-04 10:29 | Pulmonology Progress Note ---
Exam (Progress Note) - Constitutional Vitals: Period Temp Pulse Resp BP Sys/Garcia Pulse Ox Last 24 Hr 96.6 F-98 F 83-140 18-41 75-118/41-69 89-100 Results - Labs CBC & BMP: 08/04/16 05:51 08/04/16 05:51
--- NOTE | 2016-08-04 11:25 | Operative Note ---
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 Mullins Heel Nail Rasper Fawn Tolbert, STAFF ANTISUBMARINE OFFICER ACNP Anesthesia was general endotracheal Brief history: 80-year-old Afro-Citizen Of [place] female who comes in with a large pocket of fluid with necrotic skin just below the gastrostomy tube that was inserted previously. She was at the senior care when the tube somehow came out of the stomach and was in the subcutaneous tissue and they were instilling this to feeding into the subcutaneous tissue. She came in and a septic shock situation had to be intubated at that time. She is stabilized out urine output still poor but we elected to go ahead and try to take her surgery and get this area cleaned up and debrided see if this will improve her general status. Procedure: With patient supine position prepped and draped in sterile fashion timeout and antibiotics completed we approach this area of the abdominal wound. I went ahead and initially removed the old PEG tube that was in place it was in the subtenons tissue. Then noticed a pocket on area of some necrotic tissue off to the flank area and this cavity was Rollins extending towards that way. We then took a knife and made incision through the skin subcutaneous tissue to get down into this cavity. We encountered a large amount of necrotic fat the tissue with a good bit of tube feeding and intermeshed with it. I begin to debride all this necrotic tissue out taken some for culture as well as begin to take some for pathology. I did trim a good bit of skin off the lateral edge of the wound where there was necrotic tissue and debrided continuous fatty tissue down to the fascia of the muscle. We debrided little that fascia away and then carried it onto the medial aspect to debride all the necrotic looking fatty tissue and fascial tissue that I can see. Once I had that completely debrided and washed and irrigated we then used electrocauterization control bleeding. I could tell that we still had an opening that was the opening to the PEG tube. I took a 20 Bengali gastrostomy tube and easily inserted into this area was able blow up the balloon and pulled it up firmly. We then brought C arm and did some x-rays showing that we were in the stomach at this time. At that point I felt would best to leave the S and seal this off as best we can so went ahead and put a pursestring of 2-0 Ethibond around the tube and tied that down securely and then secured it to the tube itself so the tube would not drift back in. Once we had that completed and the wound is clean as we could get it then we placed a wound VAC with white foam then black foam and secured the flange to the top of the back once it was activated. At this point with the VAC in place and a dressing there will keep the tube as gravity drainage and change the VAC once or twice a week. Estimated blood loss 30 cc Sponge count correct 2 Drains wound VAC Complications none Condition critical Anesthesia: OSMIN Surgeon / Physician: Braden Mullins Heel Nail Rasper: Fawn Tolbert Estimated blood loss: other (30 cc) Specimens: other (Tissue for culture and pathology) Condition: critical Disposition: ICU Results - Labs CBC & BMP: 08/04/16 05:51 08/04/16 05:51 Discharge Plan - Discharge Medications No Action Donepezil [Aricept] 5 mg PEG BEDTIME Aspirin EC Tab 81 mg PEG DAILY Levothyroxine Tab [Synthroid Tab] 25 mcg PEG DAILY@0600 Pentoxifylline [TRENtal] 400 mg PEG TID Divalproex Sodium 250 mg PEG TID Insulin Lispro [HumaLOG] See Protocol SUBCUT Q6HR unit Ibuprofen Tab [Motrin Tab] 600 mg PEG Q6H PRN PRN Reason: Pain - Follow Up or Referral - Forms/Instructions
[2016-08-04] MEDS ORDERED: CHLORHEXIDINE 4% SOLN 118 ML BOTTLE TOP ONE (11:34)
[2016-08-04] MEDS ORDERED: SKIN HEALING OINT (AQUAPHOR) 50 GM TUBE TOP PRN (11:34)
[2016-08-04] MEDS ORDERED: SEVOFLURANE 1 UNIT/15 MINUTE INH ONE (12:00)
[2016-08-04] MEDS ORDERED: KETAMINE 500 MG/10 ML VIAL ONE (12:01)
--- NOTE | 2016-08-04 12:15 | Fluoroscopy Report ---
Exam: FL fluoroscopy <1hr Date: 08/04/2016 Indication: PEG tube placement in OR Comparison: CT 08/03/2016 Findings: 21.7 seconds fluoroscopy time provided to Dr. Mullins with a total of 3 fluoroscopic images. Contrast was instilled into the gastrostomy tube which is demonstrated in the stomach with nasogastric tube in the stomach. No extravasation of contrast present. Balloon is inflated on the gastrostomy tube. There appears be approximately 30 to 40 cc of contrast in the stomach. Impression: 1. PEG tube confirmed within the stomach with the oral contrast and fluoroscopy time PROCEDURE INTERPRETED AT [facility] DEPARTMENT OF RADIOLOGY Final Report Signed by: Dr. Ney Ovalles
--- NOTE | 2016-08-04 12:44 | XRay Report ---
Referring Physician: Khanh Lam Exam: XR chest 1V portable Date: August 04, 2016 at 9:49 AM Reason: Ventilation Comparison: Chest one view portable August 03, 2016 Findings: An endotracheal tube is in place with its distal tip at the level of the maryann. It is recommended that it be retracted approximately 2 cm. A feeding tube is seen extending into the stomach. Contrast is noted within the stomach. The cardiac silhouette is normal in size. There are mild scattered opacities within both lungs. This is concerning for an infectious process. Other considerations include pulmonary edema. No pneumothorax or pleural effusion is identified. The osseous structures appear stable. Impression: 1. An endotracheal tube is in place with its distal tip at the level of the maryann. It is recommended that it be retracted 2 cm. 2. There are mild scattered opacities within both lungs. This is concerning for an infectious process, but other considerations include pulmonary edema. PROCEDURE INTERPRETED AT [facility] DEPARTMENT OF RADIOLOGY Final Report Signed by: Dr. Dougie Kaplan
[2016-08-04 12:47] LABS: Hematocrit 29.4 VOL% (35.7-47.0)
--- NOTE | 2016-08-04 13:04 | Anesthesia Post-Op ---
Anesthesia Post OP - Post Ansesthetic Evaluation Patient seen in post op: Yes Resp: within normal limits (on the vent.) CV: within normal limits (still using benjy syn. to maintain BP) Mental: within normal limits Temp: within normal limits Jtag-Hn-Derqkrjye: within normal limits Nausea and Vomiting: within normal limits Pain: within normal limits
--- NOTE | 2016-08-04 13:40 | Hospitalist Progress Note ---
Assessment and Plan (1) Dehydration Status: Resolved Current Visit: No (2) Hypertension Status: Chronic Current Visit: No Qualifiers: Hypertension type: essential hypertension Qualified Code(s): I10 - Essential (primary) hypertension (3) Debility Status: Chronic Current Visit: Yes (4) Chronic kidney disease, stage III (moderate) Status: Chronic Current Visit: Yes (5) Altered mental status Status: Acute Assessment and plan: This appears to be due to patient's underlying infection due to an abscess at the PEG site she is now status post wound debridement. Wound VAC has been placed. Current Visit: Yes (6) Dementia Status: Chronic Current Visit: No (7) PEG (percutaneous endoscopic gastrostomy) status Status: Chronic Assessment and plan: Patient now has a new PEG tube placed. Wound VAC is also placed. Current Visit: No (8) Cellulitis, abdominal wall Status: Acute Assessment and plan: Status post wound debridement and wound VAC placement. Current Visit: Yes Hospitalist: Subjective Interval history: Patient was admitted on last night due to altered mental status was found to have an abscess at the PEG tube site. She is now status post an abscess drainage and a wound VAC placement today. Hemodynamics have been acceptable. Exam - Constitutional Vitals: Period Temp Pulse Resp BP Sys/Garcia Pulse Ox Last 24 Hr 96.6 F-98 F 83-140 14-41 75-123/41-69 89-100 General appearance: other (Frail lady) - Head Head exam: Present: normal inspection - Neck Neck exam: Present: normal inspection - Respiratory Respiratory exam: Present: clear to auscultation bilaterally - Cardiovascular Cardiovascular exam: Present: regular rate and rhythm - GI/Abdominal GI/Abdominal exam: Present: other (Abdomen is bandaged) Results - Labs CBC & BMP: 08/04/16 12:44 08/04/16 05:51 Quality Measures - VTE Contraindication to Pharmacological VTE Prophylaxis: High Risk of Bleeding
--- NOTE | 2016-08-04 13:54 | Ultrasound Report ---
Exam: Bilateral lower extremity venous Doppler ultrasound Comparison: 02/15/2016 Clinical history: Leg ulcers, immobility Technique: Duplex scan of the lower extremity veins using B-mode/grayscale scaled imaging and Doppler spectral analysis and color flow. Findings: Major venous structures of the lower extremities demonstrate a normal course and caliber. Normal color-flow study and spectral analysis. There is normal compression and augmentation of bilateral common femoral, superficial femoral and popliteal veins. The proximal bilateral greater saphenous veins appear to be patent. Impression: No evidence to suggest deep venous thrombosis within either lower extremity. Ultrasound images were captured and stored. PROCEDURE INTERPRETED AT [facility] DEPARTMENT OF RADIOLOGY Final Report Signed by: Dr. Vickie Santana
[2016-08-04] MEDS ORDERED: DONEPEZIL 10 MG TABLET PEG SCH (21:00)
[2016-08-05] MEDS: PHENYLEPHRINE DRIP 40 MG/250 ML PREMIX IV SCH ×4 (00:43→23:18)
[2016-08-05] MEDS: INSULIN LISPRO 100 UNIT/ML SUBCUT SCH ×4 (00:43→17:55)
[2016-08-05] MEDS: metroNIDAZOLE INJ 500 MG in PREMIX 1 EACH IV SCH ×4 (01:27→18:21)
[2016-08-05] MEDS: MEROPENEM 500 MG in SODIUM CHLORIDE 0.9% 100 ML IV SCH ×2 (01:55→14:42)
[2016-08-05 03:43] LABS: ABG Base Excess -6.4 MMOL/L (-2.5-2.5); ABG HCO3 19.1 MMOL/L (20-26); ABG Oxygen Saturation 99.6 % (95-100); ABG PCO2 35.5 MM HG (35-48); ABG PH 7.333 (7.35-7.45); ABG TCO2 17.8 MMOL/L (23-27); Pt O2 Delivery Device Ventilator
[2016-08-05 05:31] LABS: Basophils # 0.1 10*3/uL (0.0-0.2); Basophils % 0.4 % (0.0-0.8); Eosinophils % 0.1 % (0.00-10.9); Hematocrit 24.5 VOL% (35.7-47.0); Hemoglobin 7.5 GM/DL (12.0-16.0); Immature Granulocytes % 9.7 %; Immature Granulocytes Absolute 1.42 #; Lymphocytes # 0.6 10*3/uL (1.4-4.0); Mean Corpuscular HGB Conc 30.6 GM/DL (32-36); Mean Corpuscular Hemoglobin 28 PG (27-34); Mean Corpuscular Volume 92.8 FL (87-102); Mean Platelet Volume 12.5 FL (9.6-12.0); Monocytes # 0.7 10*3/uL (0.11-0.8); Monocytes % 4.8 % (1.7-12.7); NRBC # 0.06 10*3/uL; Neutrophils # 11.9 10*3/uL (1.4-7.4); Platelet Count 209 T/CUMM (130-400); Red Blood Count 2.64 MC/CUMM (3.8-5.5); Red Cell Distribution Width 17.4 % (9.3-17.3); White Blood Count 14.7 T/CUMM (4-12)
[2016-08-05] MEDS: ENOXAPARIN 30 MG/0.3 ML SYRINGE SUBCUT SCH (05:38)
[2016-08-05] MEDS: DEXTROSE 5% NACL 0.9% 1,000 ML IV SCH ×5 (05:39→21:00)
[2016-08-05 06:12] LABS: Albumin 1.4 G/DL (3.4-5.0); Bilirubin,Total 0.8 MG/DL (0.2-1.0); Osmolality,Calculated 312.9 MOS/KG (273-304); Potassium 4.3 MMOL/L (3.5-5.1); Total Protein 4.4 G/DL (6.4-8.3)
[2016-08-05] MEDS: LEVOTHYROXINE 100 MCG VIAL IV SCH (06:23)
[2016-08-05 06:26] LABS: Band Neutrophils 15 % (0-10); Lymphocytes 5 % (20-55); Metamyelocytes 5 %; Myelocytes 1 %; Segmented Neutrophils 67 % (50-85); Total Cells Counted 100
[2016-08-05 06:27] LABS: Hypochromasia 1+
[2016-08-05 06:35] LABS: Microcytosis 1+; Platelet Estimate Normal
--- NOTE | 2016-08-05 07:08 | XRay Report ---
XR chest 1V portable Indication: Intubated. Chest one view: Since yesterday, endotracheal tube, NG tube, normal heart size and mediastinal contour and coarsened interstitial markings of the lungs are stable. No new infiltrates are shown. Impression: No change. PROCEDURE INTERPRETED AT [facility] DEPARTMENT OF RADIOLOGY Final Report Signed by: Lucas Glover M.D.
--- NOTE | 2016-08-05 09:30 | Pulmonology Progress Note ---
Pulmonary - PN: Subj Interval history: 80-year-old female admitted for abdominal wall abscess and respiratory failure due to metabolic acidosis from severe sepsis. Yesterday patient went to the OR for abdominal wall debridement. Overnight patient did well and has had improvement in her acidosis as well as respiratory status. No acute issues at this time. Exam (Progress Note) - Constitutional Vitals: Period Temp Pulse Resp BP Sys/Garcia Pulse Ox Last 24 Hr 97.6 F-98.2 F 88-113 12-27 76-142/40-102 100-100 General appearance: normal weight - Head Head exam: Present: normal inspection - Eye Eye exam: Present: EOMI - Neck Neck exam: Present: normal inspection - Respiratory Respiratory exam: Present: clear to auscultation bilaterally - Cardiovascular Cardiovascular exam: Present: regular rate and rhythm - GI/Abdominal GI/Abdominal exam: Present: hypoactive bowel sounds, other (Wound VAC in place around PEG tube) - Extremities Exam Extremities exam: Present: normal inspection - Neurological Exam Neurological exam: Present: other (Sedated on the ventilator) - Skin Skin exam: Present: normal color, warm, dry Results - Labs CBC & BMP: 08/05/16 05:15 08/05/16 05:15 - Diagnostic Findings Procedure: Chest x-ray: image reviewed by me, report reviewed by me Assessment and Plan (1) Acute respiratory failure Status: Acute Assessment and plan: Due to significant metabolic acidosis from severe sepsis from abdominal abscess. Patient significantly improved after debridement in OR yesterday. Continue to wean ventilator as allowed. Current Visit: Yes (2) Severe sepsis Status: Acute Assessment and plan: Significantly improved after OR debridement yesterday. Cultures preliminarily showing gram-negative rods and gram-positive cocci from wound. Continue current antibiotics and tailor based on final culture results. Current Visit: Yes (3) Abscess of abdominal wall Status: Acute Assessment and plan: As above and per surgery. Current Visit: Yes (4) Acute on chronic renal failure Status: Acute Assessment and plan: Improved with fluid hydration. Nephrology following. Current Visit: No (5) Anemia Status: Acute Assessment and plan: Significant drop in hemoglobin noted this morning compared with admission labs. Likely multifactorial from operation yesterday and IV fluid hydration. Monitor and consider transfusion if hemoglobin less than 7. Current Visit: No (6) Hypernatremia Status: Acute Assessment and plan: Iatrogenic from normal saline infusion. Recommend transition to D5W versus starting free water flushes. Current Visit: No
--- NOTE | 2016-08-05 09:45 | General Surgery Progress Note ---
Assessment and Plan - Time spent with patient Time spent with patient: Less than 30 minutes (1) Abscess of abdominal wall Status: Acute Assessment and plan: Stable post op debridement/drainage of abdominal wall/PEG site. We will continue VAC and await final cultures. She will need VAC change next week, probably Sunday and Sunday. Hopefully we can get the area cleaned and free of infection, and then perform delayed closure around the PEG. Current Visit: Yes Subjective Patient reports: Present: other (Pt on the vent; she will awaken and look around. ) Exam - Constitutional Vitals: Period Temp Pulse Resp BP Sys/Garcia Pulse Ox Last 24 Hr 97.6 F-98.2 F 89-113 12-27 76-142/40-102 100-100 General appearance: no acute distress - ENT Mouth exam: Present: dry mucosa - GI/Abdominal GI/Abdominal exam: Present: hypoactive bowel sounds, soft, other (VAC in place to abdomen; moderate amount of thin bloody drainage in canister. PEG is intact. Periwound skin without ischemic change; no advancing erythema seen.) Results - Labs CBC & BMP: 08/05/16 05:15 08/05/16 05:15 Lab Results: I have reviewed the past 24 hour labs (WBC slightly down. Hct down/ borderline-will watch. She had some intraop blood loss but nothing significant.) Quality Measures - VTE Contraindication to Pharmacological VTE Prophylaxis: High Risk of Bleeding
[2016-08-05] MEDS: PANTOPRAZOLE 40 MG VIAL IV SCH (10:00)
--- NOTE | 2016-08-05 10:04 | Hospitalist Progress Note ---
Assessment and Plan (1) Severe malnutrition Status: Chronic Current Visit: Yes (2) Anemia Status: Acute Current Visit: No Qualifiers: Anemia type: other cause Other causes of anemia: acute posthemorrhagic Qualified Code(s): D62 - Acute posthemorrhagic anemia (3) Status post insertion of percutaneous endoscopic gastrostomy (PEG) tube Status: Acute Current Visit: Yes (4) Acute respiratory failure Status: Acute Current Visit: Yes (5) Severe sepsis Status: Acute Assessment and plan: On vanc, merrem, flagyl for abdominal wall abscess. Current Visit: Yes (6) Abscess of abdominal wall Status: Acute Assessment and plan: Continue abx and surgical care/ bedridement. Wound vac in place. Consider LTAC next week. Current Visit: Yes Hospitalist: Subjective Interval history: Patient seen and examined. No acute events overnight. Case discussed with nursing staff. Labs reviewed. Hemoglobin dropping consider transfusion. Repeat H&H this afternoon. Case discussed with daughter on rounds. Exam - Constitutional Vitals: Period Temp Pulse Resp BP Sys/Garcia Pulse Ox Last 24 Hr 97.6 F-98.2 F 89-113 12-27 76-142/40-102 100-100 Exam: Constitutional System: no distress. No tremulousness. Head: Normocephalic, atraumatic. Ears, Nose and Throat System: No pain or tenderness. No epistaxis or discharge. ET tube in place. Eyes System: Pupils equal, round, and reactive. Extraocular muscles intact. Neck: Supple, without adenopathy, No jugular venous distention. No thyromegaly. Respiratory System: Chest clear to auscultation. Cardiovascular System: Heart with regular rate and rhythm. No murmur. GI System: Abdomen soft, nontender. Normo active bowel sounds present. Wound VAC dressing in place Musculoskeletal System: limbs without edema. Full distal pulses. Legs wrapped. Neurological System: Sedated Results - Labs CBC & BMP: 08/05/16 05:15 08/05/16 05:15 Lab Results: I have reviewed the past 24 hour labs Quality Measures - VTE Contraindication to Pharmacological VTE Prophylaxis: High Risk of Bleeding
[2016-08-05 13:07] LABS: Hematocrit 21.8 VOL% (35.7-47.0); Hemoglobin 6.8 GM/DL (12.0-16.0)
[2016-08-05] MEDS ORDERED: SODIUM CHLORIDE 0.9% 250 ML IV PRN (17:04)
[2016-08-05] MEDS ORDERED: VANCOMYCIN INJ 750 MG in SODIUM CHLORIDE 0.9% 250 ML IV SCH (21:00)
[2016-08-05] MEDS: DILTIAZEM INJ 100 MG in SODIUM CHLORIDE 0.9% 100 ML IV SCH (23:19)
[2016-08-06] MEDS: INSULIN LISPRO 100 UNIT/ML SUBCUT SCH ×4 (00:38→18:00)
[2016-08-06] MEDS: MEROPENEM 500 MG in SODIUM CHLORIDE 0.9% 100 ML IV SCH ×2 (01:33→14:57)
[2016-08-06] MEDS: metroNIDAZOLE INJ 500 MG in PREMIX 1 EACH IV SCH ×4 (01:33→18:23)
[2016-08-06 02:54] LABS: ABG HCO3 16.7 MMOL/L (20-26); ABG Oxygen Saturation 98.3 % (95-100); ABG PCO2 31.6 MM HG (35-48); ABG PH 7.342 (7.35-7.45); ABG PO2 158.1 MM HG (80-95); ABG TCO2 17.7 MMOL/L (23-27); Allen Test Positive; Pt O2 Delivery Device Ventilator
[2016-08-06 05:07] LABS: Basophils % 0.3 % (0.0-0.8); Eosinophils % 0.1 % (0.00-10.9); Hematocrit 28.4 VOL% (35.7-47.0); Immature Granulocytes % 0.5 %; Immature Granulocytes Absolute 0.08 #; Lymphocytes # 0.9 10*3/uL (1.4-4.0); Lymphocytes % 5.9 % (21.3-54.2); Mean Corpuscular HGB Conc 32.7 GM/DL (32-36); Mean Corpuscular Hemoglobin 30 PG (27-34); Mean Corpuscular Volume 91.9 FL (87-102); Mean Platelet Volume 12.4 FL (9.6-12.0); Monocytes # 0.6 10*3/uL (0.11-0.8); NRBC # 0.05 10*3/uL; Neutrophils # 13.1 10*3/uL (1.4-7.4); Neutrophils % 89.2 % (38.7-73.9); Platelet Count 151 T/CUMM (130-400); Red Blood Count 3.09 MC/CUMM (3.8-5.5); Red Cell Distribution Width 16.2 % (9.3-17.3); White Blood Count 14.7 T/CUMM (4-12)
[2016-08-06] MEDS: DEXTROSE 5% NACL 0.9% 1,000 ML IV SCH (05:12)
[2016-08-06 05:15] LABS: Hemoglobin 9.3 GM/DL (12.0-16.0)
[2016-08-06] MEDS: ENOXAPARIN 30 MG/0.3 ML SYRINGE SUBCUT SCH (05:17)
[2016-08-06 05:34] LABS: Anisocytosis 1+; Band Neutrophils 4 % (0-10); Eosinophils 1 % (0-10); Hypochromasia Slight; Lymphocytes 7 % (20-55); Metamyelocytes 1 %; Microcytosis 1+; Segmented Neutrophils 79 % (50-85); Total Cells Counted 100
[2016-08-06 05:35] LABS: Burr Cells Slight; Platelet Estimate Adequate
[2016-08-06 05:39] LABS: Calcium 7.6 MG/DL (8.5-10.1); Magnesium 1.8 MG/DL (1.8-2.4); Osmolality,Calculated 320.9 MOS/KG (273-304); Potassium 3.4 MMOL/L (3.5-5.1)
[2016-08-06] MEDS: LEVOTHYROXINE 100 MCG VIAL IV SCH (06:13)
--- NOTE | 2016-08-06 07:29 | XRay Report ---
XR chest 1V portable Indication: Intubated. Chest one view: Comparison yesterday. Endotracheal tube, NG tube, normal heart size, calcified atheromatous disease, pulmonary hypoinflation and elevation right hemidiaphragm and coarsened interstitial markings of the lungs are stable. No new infiltrates are identified. Impression: No appreciable change. PROCEDURE INTERPRETED AT [facility] DEPARTMENT OF RADIOLOGY Final Report Signed by: Lucas Glover M.D.
--- NOTE | 2016-08-06 07:30 | Pulmonology Progress Note ---
Pulmonary - PN: Subj Interval history: 80-year-old female admitted for abdominal wall abscess at the site of her PEG tube and respiratory failure due to metabolic acidosis from severe sepsis. Patient is now status post OR for abdominal wall debridement and has a wound VAC in place. Patient did well overnight without any acute issues. Ventilator settings have been down titrated and she is not ready for CPAP trials. Exam (Progress Note) - Constitutional Vitals: Period Temp Pulse Resp BP Sys/Garcia Pulse Ox Last 24 Hr 97.8 F-100.1 F 99-114 11-28 93-149/35-131 97-100 General appearance: under weight - Head Head exam: Present: normal inspection - Eye Eye exam: Present: EOMI - Neck Neck exam: Present: normal inspection - Respiratory Respiratory exam: Present: clear to auscultation bilaterally. Absent: accessory muscle use, rales, rhonchi, wheezes - Cardiovascular Cardiovascular exam: Present: regular rate and rhythm - GI/Abdominal GI/Abdominal exam: Present: normal bowel sounds, other (Wound VAC in place) - Extremities Exam Extremities exam: Present: normal inspection - Neurological Exam Neurological exam: Present: alert - Skin Skin exam: Present: normal color, warm, dry Results - Labs CBC & BMP: 08/06/16 04:52 08/06/16 04:52 - Diagnostic Findings Procedure: Chest x-ray: image reviewed by me (ET and NG tube in satisfactory position. Overall unchanged) Assessment and Plan (1) Acute respiratory failure Status: Acute Assessment and plan: Due to significant metabolic acidosis from severe sepsis from abdominal abscess. Patient significantly improved after debridement in OR yesterday. Will start CPAP trials today and patient will hopefully be a would be activated in the morning. Current Visit: Yes (2) Severe sepsis Status: Acute Assessment and plan: Significantly improved after OR debridement. Cultures preliminarily showing gram-negative rods and gram-positive cocci from wound. Continue current antibiotics and tailor based on final culture results. Current Visit: Yes (3) Abscess of abdominal wall Status: Acute Assessment and plan: As above and per surgery. Current Visit: Yes (4) Acute on chronic renal failure Status: Acute Assessment and plan: Continued improvement with fluid hydration. Current Visit: No (5) Anemia Status: Acute Assessment and plan: Hemoglobin improved this morning. Continue to trend. Current Visit: No (6) Hypernatremia Status: Acute Assessment and plan: Iatrogenic from normal saline infusion. Recommend transition to D5W versus starting free water flushes. Current Visit: No
[2016-08-06] MEDS: DEXTROSE 5% 1,000 ML IV SCH ×2 (08:35→20:34)
[2016-08-06] MEDS ORDERED: PHENYLEPHRINE DRIP 40 MG/250 ML PREMIX IV SCH (08:56)
[2016-08-06] MEDS: PANTOPRAZOLE 40 MG VIAL IV SCH (09:31)
--- NOTE | 2016-08-06 10:37 | Hospitalist Progress Note ---
Assessment and Plan (1) Severe malnutrition Status: Chronic Assessment and plan: Start TPN today along with d5w. Current Visit: Yes (2) Anemia Status: Chronic Current Visit: No Qualifiers: Anemia type: other cause Other causes of anemia: acute posthemorrhagic Qualified Code(s): D62 - Acute posthemorrhagic anemia (3) Status post insertion of percutaneous endoscopic gastrostomy (PEG) tube Status: Acute Current Visit: Yes (4) Acute respiratory failure Status: Acute Current Visit: Yes (5) Severe sepsis Status: Acute Assessment and plan: On vanc, merrem, flagyl for abdominal wall abscess. Current Visit: Yes (6) Abscess of abdominal wall Status: Acute Assessment and plan: Continue abx and surgical care/ bedridement. Wound vac in place. Consider LTAC next week. Current Visit: Yes Hospitalist: Subjective Interval history: Patient seen and examined. No acute events overnight. Case discussed with nursing staff. Labs reviewed. Patient with elevated sodium and chloride levels this morning. She has been n.p.o. and has not received nutrition. TPN has been ordered and D5W in the interim has been started. Morphine is added for pain control Exam - Constitutional Vitals: Period Temp Pulse Resp BP Sys/Garcia Pulse Ox Last 24 Hr 96.7 F-100.1 F 92-114 11-28 93-157/35-97 97-100 Exam: Constitutional System: no distress. No tremulousness. Head: Normocephalic, atraumatic. Ears, Nose and Throat System: No pain or tenderness. No epistaxis or discharge. ET tube in place. Eyes System: Pupils equal, round, and reactive. Extraocular muscles intact. Neck: Supple, without adenopathy, No jugular venous distention. No thyromegaly. Respiratory System: Chest clear to auscultation. Cardiovascular System: Heart with regular rate and rhythm. No murmur. GI System: Abdomen soft, nontender. Normo active bowel sounds present. Wound VAC dressing in place Musculoskeletal System: limbs without edema. Full distal pulses. Legs wrapped. Neurological System: Sedated Results - Labs CBC & BMP: 08/06/16 04:52 08/06/16 04:52 Lab Results: I have reviewed the past 24 hour labs Quality Measures - VTE Contraindication to Pharmacological VTE Prophylaxis: High Risk of Bleeding
[2016-08-06] MEDS: AMINO ACIDS/DEXT/LYTES 5-15% 2,000 ML IV SCH (12:22)
--- NOTE | 2016-08-06 13:05 | General Surgery Progress Note ---
Assessment and Plan (1) Abscess of abdominal wall Status: Acute Assessment and plan: 08/05/2016 stable post op debridement/drainage of abdominal wall/PEG site. We will continue VAC and await final cultures. She will need VAC change next week, probably Sunday and Sunday. Hopefully we can get the area cleaned and free of infection, and then perform delayed closure around the PEG. 08/06/2016 Patient continues to be stable postop extensive debridement of anterior abdominal wall PEG site. Cultures are emerging; she is on empiric antibiotics that should give her good coverage. We will plan to change the wound VAC on Sunday or Sunday and reevaluate the wound. Nurses tell me that TPN will be initiated today; we would like to allow the new PEG tube several more days to become well seated before using, however we have good confirmation of placement via x-rays taken at the time of surgery,so there should be no complication after a short healing period. Current Visit: Yes Exam - Constitutional Vitals: Period Temp Pulse Resp BP Sys/Garcia Pulse Ox Last 24 Hr 96.7 F-100.1 F 92-114 14-26 100-157/35-78 97-100 General appearance: other (Sedated on ventilator.) - GI/Abdominal GI/Abdominal exam: Present: other (Abdomen is soft with normoactive bowel sounds. Wound VAC is in place over the incision. There is no redness, no unusual induration. VAC drainage is now pale serous sanguinous. There is no evidence of any GI content in the VAC output.) - Extremities Exam Extremities exam: Present: other (Lower extremities dressings are intact.) Results - Labs CBC & BMP: 08/06/16 04:52 08/06/16 04:52 Lab Results: I have reviewed the past 24 hour labs (Labs noted; I see that she was transfused.) Quality Measures - VTE Contraindication to Pharmacological VTE Prophylaxis: High Risk of Bleeding
[2016-08-06] MEDS: MORPHINE 2 MG/1 ML SYRINGE IV PRN ×2 (15:52→20:30)
[2016-08-07] MEDS: INSULIN LISPRO 100 UNIT/ML SUBCUT SCH ×4 (01:12→18:16)
[2016-08-07] MEDS: MEROPENEM 500 MG in SODIUM CHLORIDE 0.9% 100 ML IV SCH ×2 (01:12→14:03)
[2016-08-07] MEDS: metroNIDAZOLE INJ 500 MG in PREMIX 1 EACH IV SCH ×4 (01:12→18:30)
[2016-08-07 04:06] LABS: ABG Base Excess -6.9 MMOL/L (-2.5-2.5); ABG HCO3 18.8 MMOL/L (20-26); ABG Oxygen Saturation 99.3 % (95-100); ABG PCO2 33.2 MM HG (35-48); ABG PH 7.344 (7.35-7.45); ABG TCO2 16.7 MMOL/L (23-27); Allen Test Positive; Pt O2 Delivery Device Ventilator
[2016-08-07 04:32] LABS: Basophils % 0.2 % (0.0-0.8); Eosinophils # 0.1 10*3/uL (0.0-0.87); Eosinophils % 0.6 % (0.00-10.9); Hematocrit 28.5 VOL% (35.7-47.0); Hemoglobin 9.2 GM/DL (12.0-16.0); Immature Granulocytes % 1.1 %; Immature Granulocytes Absolute 0.18 #; Lymphocytes # 1.7 10*3/uL (1.4-4.0); Lymphocytes % 10.9 % (21.3-54.2); Mean Corpuscular HGB Conc 32.3 GM/DL (32-36); Mean Corpuscular Hemoglobin 30 PG (27-34); Mean Corpuscular Volume 91.9 FL (87-102); Mean Platelet Volume 11.9 FL (9.6-12.0); Monocytes # 0.7 10*3/uL (0.11-0.8); Monocytes % 4.5 % (1.7-12.7); NRBC # 0.05 10*3/uL; Neutrophils % 82.7 % (38.7-73.9); Platelet Count 149 T/CUMM (130-400); Red Cell Distribution Width 17.1 % (9.3-17.3); White Blood Count 15.7 T/CUMM (4-12)
[2016-08-07 05:03] LABS: Burr Cells 2+; Elliptocytes Few; Magnesium 1.5 MG/DL (1.8-2.4); Osmolality,Calculated 307.9 MOS/KG (273-304); Platelet Estimate Normal; Potassium 3.2 MMOL/L (3.5-5.1)
[2016-08-07] MEDS: LEVOTHYROXINE 100 MCG VIAL IV SCH (06:24)
--- NOTE | 2016-08-07 07:32 | XRay Report ---
History: Patient on ventilator Date: 08/07/2016 Study: Chest x-ray AP portable Comparison exam: 08/06/2016 The endotracheal and nasogastric tubes remain in satisfactory position. The cardiomediastinal silhouette is similar. The pulmonary vasculature is not engorged. There is some patchy and hazy infiltrate suggesting pneumonia in the left mid to lower lung which appears slightly more prominent on the current exam. There is mild atelectatic change in the right lung base. There is no pleural effusion. Osseous structures are unchanged. Impression: Increasing infiltrate left mid to lower lung, presumably pneumonia PROCEDURE INTERPRETED AT [facility] DEPARTMENT OF RADIOLOGY Final Report Signed by: Dr. Nisha Payan
[2016-08-07] MEDS: DEXTROSE 5% 1,000 ML IV SCH ×3 (08:02→18:15)
[2016-08-07] MEDS ORDERED: MAGNESIUM SULF RIDER 4 GM in PREMIX 1 EACH IV PRN (08:05)
[2016-08-07] MEDS ORDERED: POTASSIUM CHLORIDE RIDER 10 MEQ in PREMIX 1 EACH IV PRN (08:05)
[2016-08-07] MEDS: MAGNESIUM SULF RIDER 2 GM in PREMIX 1 EACH IV PRN (08:15)
[2016-08-07] MEDS: PANTOPRAZOLE 40 MG VIAL IV SCH (09:30)
[2016-08-07] MEDS: ENOXAPARIN 40 MG/0.4 ML SYRINGE SUBCUT SCH (09:30)
[2016-08-07] MEDS ORDERED: MIDAZOLAM 2 MG/2 ML VIAL ONE (09:39)
[2016-08-07] MEDS ORDERED: MIDAZOLAM 2 MG/2 ML VIAL IV ONE (09:40)
--- NOTE | 2016-08-07 09:54 | Event Note ---
In hospital diagnostic and therapeutic fiberoptic bronchoscopy. Bilateral lavages were sent for cytology, Gram stain, bacterial culture and sensitivity, fungal cultures and sensitivities and stains. This is a 80-year-old black female who is postop surgery for abdominal wall abscess. Her chest x-ray shows a left perihilar infiltrate with atelectasis in the medial basal segment of the left lower lung. She has coarse large airway congestion suggesting retained secretions. Her cough is ineffective. For these reasons she is evaluated with fiberoptic bronchoscopy. Endotracheal tube is in good position. The distal trachea was normal and the maryann was sharp. Distal endotracheal tube was full of thick tenacious secretions that occluded the suction channel several occasions. Left mainstem bronchus contained thick tenacious secretions that extended into the left upper lung and the left lower lung. These were removed and the left lower lung was lavaged. There was mild erosive friable bronchitis in the left lower lung. These specimens were sent for the orders noted above. The right mainstem bronchus contained copious thick secretions that extended into the right upper lung and the right lower lung is seem to spare the right middle lung. There was erosive friable bronchitis in the right lower lung. Endobronchial secretions were removed with suctioning and a right lower lung was lavaged. There were no endobronchial lesions to suggest a cancer. The erosive friable bronchitis was worrisome cytologies were sent. Impression. 1. Mechanical ventilation 2. Ineffective cough 3. Retained secretions 4. Left perihilar infiltrate and left lower lung atelectasis 5. Bibasal erosive friable bronchitis most likely related to infection. Aspiration is a distinct possibility. Plan. 1. Check bronchoscopy specimens 2. Follow-up chest x-ray.
[2016-08-07] MEDS: POTASSIUM CHLORIDE RIDER 20 MEQ in PREMIX 1 EACH IV PRN ×2 (10:00→12:01)
[2016-08-07] MEDS: SKIN HEALING OINT (AQUAPHOR) 50 GM TUBE TOP SCH (10:00)
--- NOTE | 2016-08-07 10:02 | Hospitalist Progress Note ---
Assessment and Plan (1) Abscess of abdominal wall Status: Acute Assessment and plan: Continue abx and surgical care/ bedridement. Wound vac in place. Consider LTAC next week. Current Visit: Yes (2) Severe sepsis Status: Acute Assessment and plan: On daptomycin, merrem, flagyl for abdominal wall abscess. Current Visit: Yes (3) Severe malnutrition Status: Chronic Assessment and plan: Start TPN today along with d5w. Current Visit: Yes (4) Anemia Status: Chronic Current Visit: No Qualifiers: Anemia type: other cause Other causes of anemia: acute posthemorrhagic Qualified Code(s): D62 - Acute posthemorrhagic anemia (5) Status post insertion of percutaneous endoscopic gastrostomy (PEG) tube Status: Acute Current Visit: Yes (6) Acute respiratory failure Status: Acute Current Visit: Yes (7) UTI (urinary tract infection) Status: Acute Assessment and plan: Continue IV daptomycin- for enterococcus VRE Current Visit: Yes Qualifiers: Urinary tract infection type: acute cystitis Hematuria presence: without hematuria Qualified Code(s): N30.00 - Acute cystitis without hematuria Hospitalist: Subjective Interval history: Patient seen and examined. No acute events overnight. Case discussed with nursing staff. Labs reviewed. Daptomycin added for enteroccus with an SONYA of 2 to vancomycin. TPN was started yesterday. Labs are improving including sodium and chloride. Magnesium and potassium supplements ordered for hypokalemia and hypomagnesemia. Exam - Constitutional Vitals: Period Temp Pulse Resp BP Sys/Garcia Pulse Ox Last 24 Hr 97.0 F-98.8 F 85-106 13-27 103-146/47-80 98-100 Exam: Constitutional System: no distress. No tremulousness. Eyes open on the ventilator. Head: Normocephalic, atraumatic. Ears, Nose and Throat System: No pain or tenderness. No epistaxis or discharge. ET tube in place. Eyes System: Pupils equal, round, and reactive. Extraocular muscles intact. Neck: Supple, without adenopathy, No jugular venous distention. No thyromegaly. Respiratory System: Chest clear to auscultation. Cardiovascular System: Heart with regular rate and rhythm. No murmur. GI System: Abdomen soft, nontender. Normo active bowel sounds present. Wound VAC dressing in place Musculoskeletal System: limbs without edema. Full distal pulses. Legs wrapped. Neurological System: Sedated but arousable Results - Labs CBC & BMP: 08/07/16 03:57 08/07/16 03:57 Lab Results: I have reviewed the past 24 hour labs Quality Measures - VTE Contraindication to Pharmacological VTE Prophylaxis: High Risk of Bleeding
[2016-08-07] MEDS: MUPIROCIN 2% OINT 22 GM TUBE TOP SCH ×2 (10:11→22:10)
--- NOTE | 2016-08-07 10:33 | Pulmonology Progress Note ---
Pulmonary - PN: Subj Interval history: This 80-year-old black female who was a hospice patient until the family changed her mind just prior to this admission. I saw in pulmonary consultation on 08/04/2016. My impressions were. 1.Acute lactic acidosis with a severe metabolic acidosis most likely secondary to hypotension and sepsis 2. Probable abdominal wall abscess near PEG tube site. See Dr. Teixeira surgery note. 3.Acute on chronic renal failure 4. Acute respiratory failure for oxygen. Required intubation mechanical ventilation. 5. Infectious and ischemic lesions of fingers and toes. See Dr. Mullins's note. 6. Recent hospice care 7. History of dementia and schizophrenia 8. History of seizure disorder 9. Diabetes mellitus 10. Hypothyroidism. 08/07/2016. This patient is undergone abdominal surgery. She had drainage of abdominal wall abscess. She will have follow-up surgery a week from tomorrow. Today's chest x-ray shows left perihilar infiltrates and left lower lung atelectasis along with some mild atelectasis at the medial base of the right lower lung. These reasons patient was evaluated with fiberoptic bronchoscopy. She had bilateral lavages. She had mild to moderate erosive friable nonstenotic bronchitis in both lower lungs. The erosive changes probably represent an element of aspiration there is probably bacterial superinfection. Multiple studies were submitted. MRSA was isolated from her nares. Her abdominal wound has grown E. coli, enterococcus faecalis and Marly tropicalis. Urine has grown VRE. I have consulted Dr. Yan to see this patient and infectious disease consultation. Patient's on stage IV to weaning protocol. Her ABGs on mechanical ventilation FiO2 35% shows a pH of 7.344, PCO2 of 33, PO2 of 140 and a bicarb of 19. Sodium is high at 151, potassium is low at 3.2, chloride is high at 121. White blood cell count is 15,700 with 83 segs. H&H is 9.2/28.5. Total protein and albumin are low at 4.41.4 respectively. Labs been reviewed and medicines have been reviewed. Physical exam. Vital signs. See below Neurologic. Patient is arousable she moves all fours. Face. No swelling of the lips and tongue. Neck. No meningismus. Chest. Coarse large airway congestion Heart. Rate is 100. I do not hear a gallop Abdomen. Postsurgical Extremities. Nothing to suggest deep venous thrombophlebitis. Multiple wounds of the fingers and toes and feet Lymphatics. No submandibular cervical supraclavicular adenopathy. The remainder the exam is noncontributory Plan. 08/04/2016 1. Mechanical ventilation weaning protocol 2. Physical therapy consultation based on mechanical ventilation protocol 3. Doppler venograms of the lower extremities 4. Antibiotics noted. This includes meropenem Flagyl and vancomycin. 5. Monitor renal function. Consider renal consultation. 6. I have increased patient's fluid to D5 normal saline at 125 cc/h 7. Daily chest x-rays ABGs and lab. 8. See orders 08/07/2016 1. Infectious disease consultation 2. Stage IV weaning protocol and advance as rapidly as possible 3. See fiberoptic bronchoscopy report a procedure done today. Check results. 4. Daily chest x-ray, ABGs and lab. 5. Follow-up surgery for closure is planned 08/14/2016 6. See Home Medications Exam (Progress Note) - Constitutional Vitals: Period Temp Pulse Resp BP Sys/Garcia Pulse Ox Last 24 Hr 97.0 F-98.8 F 82-106 13-27 103-146/47-80 98-100 Results - Labs CBC & BMP: 08/07/16 03:57 08/07/16 03:57
--- NOTE | 2016-08-07 11:23 | Pathology Report from [facility] ---
[facility] [place] ACCESSION # : [id number] PATIENT NAME : Erick Lopez ORDERING DR : CHASTITY MCMANUS MD CLINICAL HX: PEG tube migration - I&D abdominal wall POST-OP DX: Same SPECIMEN INFO: #1 PEG tube #2 Abdominal wall tissue GROSS DESCRIPTION: #1 Received fresh labeled with the patients name ERICK LOPEZ and #1 PEG TUBE consists of a PEG tube. Gross only.#2 Received in formalin labeled with the patients name ERICK LOPEZ and #2 ABDOMINAL WALL TISSUE consists of multiple fragments of debrided skin and subcutaneous tissue measuring 13.0 x 6.0 x 3.0 cm in aggregate. Carrot Grader Inspector sections submitted in cassette #2. DIAGNOSIS FOR ERICK LOPEZ: #1 PEG tube, gross only.#2 ABDOMINAL WALL TISSUE, I & D: Subcutaneous abscess with fibrosis. COLLECTED DATE: 08/04/2016 [facility] REPORT DATE: 08/07/2016 ELECTRONICALLY SIGNED BY: Brittany Chicas M.D. 08/07/2016 - 9:50:45 [facility]
[2016-08-07] MEDS: AMINO ACIDS/DEXT/LYTES 5-15% 2,000 ML IV SCH (12:51)
[2016-08-07] MEDS: MORPHINE 2 MG/1 ML SYRINGE IV PRN (13:05)
[2016-08-08] MEDS: INSULIN LISPRO 100 UNIT/ML SUBCUT SCH ×4 (00:23→19:12)
[2016-08-08] MEDS: metroNIDAZOLE INJ 500 MG in PREMIX 1 EACH IV SCH ×2 (00:37→06:02)
[2016-08-08] MEDS: MEROPENEM 500 MG in SODIUM CHLORIDE 0.9% 100 ML IV SCH (01:49)
[2016-08-08 03:55] LABS: Allen Test Positive; Pt O2 Delivery Device Ventilator
[2016-08-08 03:56] LABS: ABG Base Excess -6.4 MMOL/L (-2.5-2.5); ABG HCO3 19.2 MMOL/L (20-26); ABG Oxygen Saturation 99.5 % (95-100); ABG PCO2 30.8 MM HG (35-48); ABG PH 7.373 (7.35-7.45); ABG TCO2 16.5 MMOL/L (23-27)
[2016-08-08 04:52] LABS: Basophils % 0.2 % (0.0-0.8); Eosinophils # 0.1 10*3/uL (0.0-0.87); Eosinophils % 0.7 % (0.00-10.9); Hematocrit 27.3 VOL% (35.7-47.0); Hemoglobin 8.7 GM/DL (12.0-16.0); Immature Granulocytes % 5.4 %; Immature Granulocytes Absolute 0.57 #; Lymphocytes # 1.4 10*3/uL (1.4-4.0); Lymphocytes % 13.6 % (21.3-54.2); Mean Corpuscular HGB Conc 31.9 GM/DL (32-36); Mean Corpuscular Hemoglobin 29 PG (27-34); Mean Platelet Volume 12.5 FL (9.6-12.0); Monocytes # 0.9 10*3/uL (0.11-0.8); Monocytes % 8.4 % (1.7-12.7); NRBC # 0.04 10*3/uL; Neutrophils # 7.5 10*3/uL (1.4-7.4); Neutrophils % 71.7 % (38.7-73.9); Platelet Count 132 T/CUMM (130-400); Red Cell Distribution Width 16.8 % (9.3-17.3); White Blood Count 10.5 T/CUMM (4-12)
[2016-08-08 05:24] LABS: Anisocytosis 1+; Band Neutrophils 3 % (0-10); Lymphocytes 12 % (20-55); Macrocytosis 1+; Platelet Estimate Decreased; Segmented Neutrophils 76 % (50-85); Total Cells Counted 100
[2016-08-08 05:28] LABS: Calcium 7.6 MG/DL (8.5-10.1); Magnesium 1.8 MG/DL (1.8-2.4); Osmolality,Calculated 294.8 MOS/KG (273-304); Potassium 3.1 MMOL/L (3.5-5.1)
[2016-08-08] MEDS: LEVOTHYROXINE 100 MCG VIAL IV SCH (06:02)
[2016-08-08] MEDS: DEXTROSE 5% 1,000 ML IV SCH ×2 (06:04→11:28)
[2016-08-08] MEDS: POTASSIUM CHLORIDE RIDER 20 MEQ in PREMIX 1 EACH IV PRN ×2 (07:30→09:31)
[2016-08-08] MEDS: MAGNESIUM SULF RIDER 2 GM in PREMIX 1 EACH IV PRN (07:50)
--- NOTE | 2016-08-08 08:06 | XRay Report ---
History: Patient on ventilator Date: 08/08/2016 Study: Chest x-ray AP portable Comparison exam: 08/07/2016 The endotracheal and nasogastric tubes are in stable satisfactory position. The cardiomediastinal silhouette is unchanged. The pulmonary vasculature is not engorged. There is some persistent patchy and hazy infiltrate in the left mid to lower lung and right lung base. This is improved on the left and stable or increased on the right. There is no pleural effusion. The osseous structures are similar. Impression: Improving infiltrate in the left mid to lower lung Stable or mildly increased atelectasis/infiltrate right lung base PROCEDURE INTERPRETED AT [facility] DEPARTMENT OF RADIOLOGY Final Report Signed by: Dr. Nisha Payan
[2016-08-08] MEDS: PANTOPRAZOLE 40 MG VIAL IV SCH (09:00)
[2016-08-08] MEDS: ENOXAPARIN 40 MG/0.4 ML SYRINGE SUBCUT SCH (09:02)
--- NOTE | 2016-08-08 09:08 | Pulmonology Progress Note ---
Pulmonary - PN: Subj Interval history: This 80-year-old black female who was a hospice patient until the family changed her mind just prior to this admission. I saw in pulmonary consultation on 08/04/2016. My impressions were. 1.Acute lactic acidosis with a severe metabolic acidosis most likely secondary to hypotension and sepsis 2. Probable abdominal wall abscess near PEG tube site. See Dr. Teixeira surgery note. 3.Acute on chronic renal failure 4. Acute respiratory failure for oxygen. Required intubation mechanical ventilation. 5. Infectious and ischemic lesions of fingers and toes. See Dr. Mullins's note. 6. Recent hospice care 7. History of dementia and schizophrenia 8. History of seizure disorder 9. Diabetes mellitus 10. Hypothyroidism. 08/07/2016. This patient is undergone abdominal surgery. She had drainage of abdominal wall abscess. She will have follow-up surgery a week from tomorrow. Today's chest x-ray shows left perihilar infiltrates and left lower lung atelectasis along with some mild atelectasis at the medial base of the right lower lung. These reasons patient was evaluated with fiberoptic bronchoscopy. She had bilateral lavages. She had mild to moderate erosive friable nonstenotic bronchitis in both lower lungs. The erosive changes probably represent an element of aspiration there is probably bacterial superinfection. Multiple studies were submitted. MRSA was isolated from her nares. Her abdominal wound has grown E. coli, enterococcus faecalis and Marly tropicalis. Urine has grown VRE. I have consulted Dr. Yan to see this patient and infectious disease consultation. Patient's on stage IV to weaning protocol. Her ABGs on mechanical ventilation FiO2 35% shows a pH of 7.344, PCO2 of 33, PO2 of 140 and a bicarb of 19. Sodium is high at 151, potassium is low at 3.2, chloride is high at 121. White blood cell count is 15,700 with 83 segs. H&H is 9.2/28.5. Total protein and albumin are low at 4.41.4 respectively. Labs been reviewed and medicines have been reviewed. 08/08/2016. This patient's on stage IV to weaning protocol. Her chest x-ray has improved. Left perihilar infiltrate is nearly resolved. There continue to be some markings at the right base. Endotracheal tube is in good position. I see nothing to suggest congestive heart failure. She is for placement of a wound VAC tomorrow. Tomorrow morning I am going to give her 1 hour T-tube trial and recheck her ABGs and reevaluate at that point. Patient is certainly more awake and alert. She is definitely not cooperative. Fiberoptic bronchoscopy specimens are negative so far.ABGs on FiO2 35% and mechanical ventilation show a pH of 7.37. PCO2 is 31. PO2 is 145. Bicarb is 19 per. White count is 10,500. H&H is 8.7/27.3. Potassium is low at 3.1. Sodium is 144. Creatinine is 0.9 with a BUN of 30. Labs been reviewed. Medicines have been reviewed. Physical exam. Vital signs. See below Neurologic. Patient is arousable she moves all fours. Face. No swelling of the lips and tongue. Neck. No meningismus. Chest. Coarse large airway congestion Heart. Rate is 100. I do not hear a gallop Abdomen. Postsurgical Extremities. Nothing to suggest deep venous thrombophlebitis. Multiple wounds of the fingers and toes and feet Lymphatics. No submandibular cervical supraclavicular adenopathy. The remainder the exam is noncontributory Plan. 08/04/2016 1. Mechanical ventilation weaning protocol 2. Physical therapy consultation based on mechanical ventilation protocol 3. Doppler venograms of the lower extremities 4. Antibiotics noted. This includes meropenem Flagyl and vancomycin. 5. Monitor renal function. Consider renal consultation. 6. I have increased patient's fluid to D5 normal saline at 125 cc/h 7. Daily chest x-rays ABGs and lab. 8. See orders 08/07/2016 1. Infectious disease consultation 2. Stage IV weaning protocol and advance as rapidly as possible 3. See fiberoptic bronchoscopy report a procedure done today. Check results. 4. Daily chest x-ray, ABGs and lab. 5. Follow-up surgery for closure is planned 08/14/2016 6. See 08/08/2016. Home Medications #1 see today's note above #2. Infectious disease consultation is pending. 3. T-tube trial tomorrow morning. 4. Wound VAC placement Exam (Progress Note) - Constitutional Vitals: Period Temp Pulse Resp BP Sys/Garcia Pulse Ox Last 24 Hr 97.3 F-99.0 F 81-98 10-31 109-148/48-85 97-100 Results - Labs CBC & BMP: 08/08/16 04:46 08/08/16 04:46
[2016-08-08] MEDS: MUPIROCIN 2% OINT 22 GM TUBE TOP SCH ×2 (09:11→20:37)
[2016-08-08] MEDS: SKIN HEALING OINT (AQUAPHOR) 50 GM TUBE TOP SCH (09:11)
--- NOTE | 2016-08-08 09:35 | Infectious Disease Consult ---
Assessment and Plan (1) Bacteriuria, asymptomatic Status: Acute Assessment and plan: The associated urinalysis was negative for pyuria therefore this VRE represents colonization. Treatment is not indication therefore I will stop daptomycin. Current Visit: Yes (2) Abscess of abdominal wall Status: Acute Assessment and plan: Abdominal infection due to migrated PEG tube. Multiple organisms isolated. Clinically the patient is doing better following surgery with washout. Recommendations: 1. Discontinue meropenem and Flagyl 2. Start Unasyn 3 g every 6 hours for the organisms isolated as well as anaerobes 3. Start fluconazole 100 mg daily Thank you very much for the consult. Will follow. Discussed with Dr. Calhoun Current Visit: Yes (3) Bipolar disorder Status: Chronic Current Visit: No Qualifiers: Current bipolar episode type: depressed Current episode severity: unspecified (4) Dementia Status: Chronic Current Visit: No (5) Diabetes Status: Chronic Current Visit: No Qualifiers: Diabetes mellitus type: type 2 Diabetes mellitus complication status: with circulatory complication Diabetes mellitus complication detail: with peripheral angiopathy without gangrene Diabetes mellitus penitentiary insulin use : with penitentiary use Qualified Code(s): E11.51 - Type 2 diabetes mellitus with diabetic peripheral angiopathy without gangrene; Z79.4 - long term care pharmacist (current ) use of insulin (6) Hypertension Status: Chronic Current Visit: No Qualifiers: Hypertension type: essential hypertension Qualified Code(s): I10 - Essential (primary) hypertension (7) Schizophrenia Status: Chronic Current Visit: No Qualifiers: Schizophrenia type: unspecified Qualified Code(s): F20.9 - Schizophrenia, unspecified History of Present Illness Chief complaint: Abdominal infection, UTI History of present illness: History obtained from chart as patient intubated on the vent. Ms. Olea is a 80 year old female with multiple comorbid including schizophrenia and dementia who was actually on hospice but her family revoked the hospice. She had a PEG tube placed and unfortunately it migrated into her abdominal cavity and food and medications were being given via this tube. She was admitted with abdominal infection. She had laparotomy with washout of the peritoneum. Several organisms were isolated and I am asked to assist with antibiotic therapy. Patient also had a urine culture positive for VRE and was started on daptomycin. She has not any fever. She has been awake but sort of combative pulling at things that she requires restraints. Home Medications Medication Instructions Recorded Confirmed Type Donepezil [Aricept] 5 mg PEG BEDTIME 07/19/14 08/03/16 History Divalproex Sodium 250 mg PEG TID 01/26/16 08/03/16 History Aspirin EC Tab 81 mg PEG DAILY 03/09/16 08/03/16 History Insulin Lispro [HumaLOG] See Protocol SUBCUT Q6HR unit 07/23/16 08/03/16 Rx Ibuprofen Tab [Motrin Tab] 600 mg PEG Q6H PRN 08/03/16 08/03/16 History Levothyroxine Tab [Synthroid Tab] 25 mcg PEG DAILY@0600 08/03/16 08/03/16 History Pentoxifylline [TRENtal] 400 mg PEG TID 08/03/16 08/03/16 History Allergies Allergy/AdvReac Type Severity Reaction Status Date / Time benztropine [From Cogentin] Allergy Unknown/Unable Verified 08/03/16 18:43 to obtain egg Allergy Unknown/Unable Verified 08/03/16 18:43 to obtain ROS unobtainable: due to mental status Medical,Surgical,& Family Hx - Medical History Cardio: History of: Hypertension Psychological: History of: Bipolar Disorder, Schizophrenia Neurology: History of: Dementia, Peripheral Neuropathy, Seizures Endocrine: History of: Diabetes Mellitus (NIDDM), Thyroid Disorder Respiratory: No history of: Asthma, Bronchitis, COPD, Intubation, Obstructive Sleep Apnea , Pulmonary Embolism, Pulmonary Hypertension, Lung Cancer Renal: History of: Renal Problems (past episode of renal failure from dehydration) Musculoskeletal: History of: Musculoskeletal Problems (weakness; bed bound patient) Hematology: History of: Anemia (poor nutritional support) Other: History of: Skin Problems (skin wounds to feet), Miscellaneous Medical Problems (anemia/diabetic ulcer left foot) - Surgical History Cardiac Surgeries: Patient Denies: Vascular Access Devices Thoracic Surgeries: Patient denies;: Organ Transplant, Lobectomy Neurologic Surgeries: Patient denies: Neurologic Surgery Abdominal Surgeries: Patient denies: Hernia Repair Reproductive Surgeries: Surgical HX of;: Hysterectomy - Family History Family History: Reports;: Family Cancer, Family Diabetes, Family Hypertension, Family Stroke - Social History Smoking Status: Never smoker Frequency of Alcohol Use: None Type of Drug Use: None Infectious Disease Exam H&P - Constitutional Vitals: Vital Signs Temp Pulse Resp BP Pulse Ox 98.5 F 92 H 24 128/67 100 08/08/16 06:00 08/08/16 07:00 08/08/16 08:54 08/08/16 07:00 08/08/16 07:00 Intake and Output 08/07/16 08/08/16 08/08/16 23:59 07:59 15:59 Intake Total 100 / 100 1300 / 1300 Output Total 380 / 380 250 / 250 Balance -280 / -280 1050 / 1050 Intake: IV 100 / 100 1300 / 1300 D5 1,000 ml @ 60 mls/hr 1000 / 1000 IV .[id number] [facility] Rx#: [id number] Merrem 500 mg In Ns 100 100 / 100 ml @ 200 mls/hr IV Q12H [facility] Rx#:[id number] Flagyl Inj 500 mg In 100 / 100 200 / 200 Premix 1 Each @ 100 mls/ hr IV Q6H LOUANN Rx#: [id number] Output: Gastric Drainage 0 / 0 0 / 0 Left Upper Quadrant 0 / 0 0 / 0 Drainage 100 / 100 0 / 0 Left ABD Wound Vac 100 / 100 0 / 0 Urine 280 / 280 250 / 250 Other: Voiding Method Indwelling Catheter Indwelling Catheter # Bowel Movements 0 0 Weight 50.712 kg Patient Weight 08/08/16 23:59 Weight 50.712 kg Exam: General: Patient uncomfortable, writhing in bed HEENT: Mucous membranes pink and moist, anicteric acyanotic, CLEMENT, ET tube in situ Neck: Supple, no thyroid gland enlargement, no lymphadenopathy Respiratory system: Breath sounds vesicular, no crepitations or wheezes Cardiovascular: Normal S1 and S2, no murmurs appreciated Abdomen: Wound VAC to abdomen, PEG tube noted, normal bowel sounds, soft nontender throughout, no organomegaly or mass Genitourinary: No suprapubic pain or bladder distention, clear urine from Gregorio catheter Extremities: no edema Skin: No rash Reports - Labs CBC & BMP: 08/08/16 04:46 08/08/16 04:46 Labs: Laboratory Results - last 24 hr 08/07/16 08/07/16 08/07/16 12:05 18:14 23:25 WBC RBC Hgb Hct MCV MCH MCHC RDW Plt Count MPV Neut % (Auto) Lymph % (Auto) Knott % (Auto) Eos % (Auto) Baso % (Auto) Neut # (Auto) Lymph # (Auto) Knott # (Auto) Eos # (Auto) Baso # (Auto) Total Counted Immature Gran % Nucleated RBC % Immature Gran # Segmented Neutrophils Band Neutrophils Lymphocytes Monocytes Nucleated RBCs # Platelet Estimate Anisocytosis Macrocytosis ABG pH ABG pCO2 ABG pO2 ABG HCO3 ABG Total CO2 ABG O2 Saturation ABG Base Excess FiO2 Sodium Potassium Chloride Carbon Dioxide Anion Gap BUN Creatinine GFR Calculation BUN/Creatinine Ratio Glucose POC Glucose 127 H 124 H 123 H Calculated Osmolality Calcium Magnesium 08/08/16 08/08/16 08/08/16 03:45 04:46 04:46 WBC 10.5 D RBC 3.00 L Hgb 8.7 L Hct 27.3 L MCV 91.0 MCH 29 MCHC 31.9 L RDW 16.8 Plt Count 132 MPV 12.5 H Neut % (Auto) 71.7 Lymph % (Auto) 13.6 L Knott % (Auto) 8.4 Eos % (Auto) 0.7 Baso % (Auto) 0.2 Neut # (Auto) 7.5 H Lymph # (Auto) 1.4 Knott # (Auto) 0.9 H Eos # (Auto) 0.1 Baso # (Auto) 0.0 Total Counted 100 Immature Gran % 5.4 Nucleated RBC % 0.4 Immature Gran # 0.57 Segmented Neutrophils 76 Band Neutrophils 3 Lymphocytes 12 L Monocytes 9 Nucleated RBCs # 0.04 Platelet Estimate Decreased Anisocytosis 1+ Macrocytosis 1+ ABG pH 7.373 ABG pCO2 30.8 L ABG pO2 145.0 H ABG HCO3 19.2 L ABG Total CO2 16.5 L ABG O2 Saturation 99.5 ABG Base Excess -6.4 L FiO2 35.00 Sodium 144 Potassium 3.1 L Chloride 115 H Carbon Dioxide 20 L Anion Gap 12.1 BUN 30 H Creatinine 0.90 GFR Calculation 63 BUN/Creatinine Ratio 33.00 H Glucose 147 H POC Glucose Calculated Osmolality 294.8 Calcium 7.6 L Magnesium 1.8 08/08/16 05:38 WBC RBC Hgb Hct MCV MCH MCHC RDW Plt Count MPV Neut % (Auto) Lymph % (Auto) Knott % (Auto) Eos % (Auto) Baso % (Auto) Neut # (Auto) Lymph # (Auto) Knott # (Auto) Eos # (Auto) Baso # (Auto) Total Counted Immature Gran % Nucleated RBC % Immature Gran # Segmented Neutrophils Band Neutrophils Lymphocytes Monocytes Nucleated RBCs # Platelet Estimate Anisocytosis Macrocytosis ABG pH ABG pCO2 ABG pO2 ABG HCO3 ABG Total CO2 ABG O2 Saturation ABG Base Excess FiO2 Sodium Potassium Chloride Carbon Dioxide Anion Gap BUN Creatinine GFR Calculation BUN/Creatinine Ratio Glucose POC Glucose 117 H Calculated Osmolality Calcium Magnesium - Reports Microbiology: Microbiology 08/07/16 Unknown Bronchoalveolar Lavage Culture - Preliminary Bronchial Teo Lavage Normal Dina at 24 hours Gram Stain - Final 08/07/16 Unknown Fungal Smear - Final Bronchial Teo Lavage Few fungal elements seen 08/04/16 10:39 Tissue Culture - Final Abdomen - Wound Escherichia coli Enterococcus faecalis Marly tropicalis Gram Stain - Final 08/04/16 04:17 Urine Culture - Final Urine,Catheterized Enterococcus faecium VRE - Diagnostic Findings Procedure: Chest x-ray: report reviewed by me, image reviewed by me (I did not appreciate consolidation)
[2016-08-08] MEDS: ZINC OXIDE TOP SCH (10:00)
[2016-08-08] MEDS: [UNRECOGNIZED DRUG - OTHER] TOP SCH (10:00)
[2016-08-08] MEDS: AMPICILLIN/SULBACTAM 3,000 MG in SODIUM CHLORIDE 0.9% 100 ML IV SCH ×3 (11:00→22:24)
[2016-08-08] MEDS: MORPHINE 2 MG/1 ML SYRINGE IV PRN (11:03)
[2016-08-08] MEDS: FLUCONAZOLE INJ 100 MG in IV BAG 1 EACH IV SCH (11:15)
--- NOTE | 2016-08-08 11:16 | Pathology Report from [facility] ---
[facility] [place] # : [id number] PATIENT NAME : Vickie Olea ORDERING DR : SIMÓN LIVE MD CLINICAL HX: Aspiration POST-OP DX: Same SPECIMEN INFO: Washing,Brocnhial,JUANITO - 20 mls light yellow, cloudy CLASS: II CLASS COMMENTS: Reactive pulmonary cells, yeast, inflammationCELL BLOCK: Same CLASS LEGEND: CLASS 0 Material inadequate for diagnosis because of (see comment) CLASS I Absence of atypical or abnormal cells CLASS II Atypical Cytology but no evidence of malignancy CLASS III Cytology suggestive of but not conclusive for malignancy CLASS IV Cytology strongly suggestive of malignancy CLASS V Cytology conclusive for malignancy COLLECTED DATE: 08/07/2016 [facility] REPORT DATE: 08/08/2016 ELECTRONICALLY SIGNED BY: Brittany Chicas M.D. 08/08/2016 - 8:45:01 ROMEL
[2016-08-08] MEDS: AMINO ACIDS/DEXT/LYTES 5-15% 2,000 ML IV SCH (12:15)
--- NOTE | 2016-08-08 12:31 | Hospitalist Progress Note ---
Assessment and Plan (1) Abscess of abdominal wall Status: Acute Assessment and plan: Continue abx and surgical care/ bedridement. Wound vac in place. Consider LTAC - referral made Current Visit: Yes (2) Severe sepsis Status: Acute Assessment and plan: On daptomycin, merrem, flagyl for abdominal wall abscess. Current Visit: Yes (3) Severe malnutrition Status: Chronic Assessment and plan: Start TPN today along with d5w. Current Visit: Yes (4) Anemia Status: Chronic Current Visit: No Qualifiers: Anemia type: other cause Other causes of anemia: acute posthemorrhagic Qualified Code(s): D62 - Acute posthemorrhagic anemia (5) Status post insertion of percutaneous endoscopic gastrostomy (PEG) tube Status: Acute Current Visit: Yes (6) Acute respiratory failure Status: Acute Current Visit: Yes (7) UTI (urinary tract infection) Status: Acute Assessment and plan: Continue IV daptomycin- for enterococcus VRE Current Visit: Yes Qualifiers: Urinary tract infection type: acute cystitis Hematuria presence: without hematuria Qualified Code(s): N30.00 - Acute cystitis without hematuria Hospitalist: Subjective Interval history: Patient seen and examined. No acute events overnight. Case discussed with nursing staff. Labs reviewed. Sodium improving. Potassium remains low. Will require further replacement. Discussed with infectious disease on rounds. Exam - Constitutional Vitals: Period Temp Pulse Resp BP Sys/Garcia Pulse Ox Last 24 Hr 97.3 F-99.0 F 81-98 12-31 113-148/47-85 97-100 Exam: Constitutional System: no distress. No tremulousness. Eyes open on the ventilator, more responsive today. Head: Normocephalic, atraumatic. Ears, Nose and Throat System: No pain or tenderness. No epistaxis or discharge. ET tube in place. Eyes System: Pupils equal, round, and reactive. Extraocular muscles intact. Neck: Supple, without adenopathy, No jugular venous distention. No thyromegaly. Respiratory System: Chest clear to auscultation. Cardiovascular System: Heart with regular rate and rhythm. No murmur. GI System: Abdomen soft, nontender. Normo active bowel sounds present. Wound VAC dressing in place Musculoskeletal System: limbs without edema. Full distal pulses. Legs wrapped. Neurological System: Sedated but arousable Results - Labs CBC & BMP: 08/08/16 04:46 08/08/16 04:46 Lab Results: I have reviewed the past 24 hour labs Quality Measures - VTE Contraindication to Pharmacological VTE Prophylaxis: High Risk of Bleeding
[2016-08-08] MEDS: LACTATED RINGERS 1,000 ML IV SCH (14:50)
[2016-08-08] MEDS ORDERED: DEXTROSE 50% 25 GM/50 ML VIAL IV PRN (14:54)
[2016-08-08] MEDS ORDERED: GLUCAGON 1 MG VIAL IM PRN (14:54)
[2016-08-08] MEDS: FAT EMULSION 20% 250 ML IV SCH (16:35)
[2016-08-08] MEDS ORDERED: DEXTROSE 10% 1,000 ML IV PRN (17:00)
[2016-08-08] MEDS ORDERED: TRACE ELEMENTS (5) 1 ML, MULTIVITAMIN INJ 10 ML in AMINO ACIDS/DEXT/LYTES 5-15% 2,000 ML IV SCH (17:00)
[2016-08-08] MEDS ORDERED: PROPOFOL 1,000 MG/100 ML BOTTLE IV ONE (22:00)
[2016-08-08] MEDS: PROPOFOL 1,000 MG/100 ML BOTTLE IV PRN (22:14)
[2016-08-09] MEDS: INSULIN LISPRO 100 UNIT/ML SUBCUT SCH ×3 (00:19→12:37)
[2016-08-09 04:42] LABS: Calcium 7.3 MG/DL (8.5-10.1); Magnesium 1.8 MG/DL (1.8-2.4)
[2016-08-09 04:43] LABS: Osmolality,Calculated 299.1 MOS/KG (273-304); Potassium 3.3 MMOL/L (3.5-5.1)
[2016-08-09] MEDS: AMPICILLIN/SULBACTAM 3,000 MG in SODIUM CHLORIDE 0.9% 100 ML IV SCH ×2 (04:50→10:12)
[2016-08-09 04:54] LABS: Basophils % 0.2 % (0.0-0.8); Eosinophils # 0.1 10*3/uL (0.0-0.87); Eosinophils % 1.2 % (0.00-10.9); Hematocrit 26.6 VOL% (35.7-47.0); Hemoglobin 8.6 GM/DL (12.0-16.0); Immature Granulocytes % 10.7 %; Immature Granulocytes Absolute 0.98 #; Lymphocytes # 0.9 10*3/uL (1.4-4.0); Lymphocytes % 10.1 % (21.3-54.2); Mean Corpuscular HGB Conc 32.3 GM/DL (32-36); Mean Corpuscular Hemoglobin 30 PG (27-34); Mean Corpuscular Volume 92.7 FL (87-102); Monocytes % 10.4 % (1.7-12.7); NRBC # 0.05 10*3/uL; Neutrophils # 6.2 10*3/uL (1.4-7.4); Neutrophils % 67.4 % (38.7-73.9); Platelet Count 119 T/CUMM (130-400); Red Blood Count 2.87 MC/CUMM (3.8-5.5); White Blood Count 9.2 T/CUMM (4-12)
[2016-08-09 05:12] LABS: Phosphorous 2.1 MG/DL (2.5-4.9); Prealbumin 8.2 MG/DL (20-40)
[2016-08-09 05:21] LABS: Band Neutrophils 4 % (0-10); Hypochromasia Slight; Lymphocytes 10 % (20-55); Microcytosis 1+; Myelocytes 2 %; Segmented Neutrophils 71 % (50-85); Total Cells Counted 100
[2016-08-09 05:22] LABS: Anisocytosis 1+; Platelet Estimate Adequate
[2016-08-09] MEDS: PROPOFOL 1,000 MG/100 ML BOTTLE IV PRN (05:36)
[2016-08-09] MEDS: LEVOTHYROXINE 100 MCG VIAL IV SCH ×2 (05:54→06:08)
[2016-08-09] MEDS: MAGNESIUM SULF RIDER 2 GM in PREMIX 1 EACH IV PRN (05:58)
[2016-08-09] MEDS: POTASSIUM CHLORIDE RIDER 20 MEQ in PREMIX 1 EACH IV PRN (06:26)
--- NOTE | 2016-08-09 07:13 | XRay Report ---
History: Patient on ventilator Date: 08/09/2016 Study: Chest x-ray AP portable Comparison exam: 08/08/2016 The endotracheal and nasogastric tubes are in satisfactory position. The cardiomediastinal silhouette is unchanged. There is some continued patchy/hazy/strandy opacity in the right lung base and left mid to lower lung, grossly similar. There is no gross interval worsening. Skinfold overlies the right hemithorax. There is no increased pleural effusion. The osseous structures are similar. Impression: No gross change from the previous study PROCEDURE INTERPRETED AT [facility] DEPARTMENT OF RADIOLOGY Final Report Signed by: Dr. Nisha Payan
[2016-08-09 07:55] LABS: ABG Base Excess -3.9 MMOL/L (-2.5-2.5); ABG HCO3 21.2 MMOL/L (20-26); ABG Oxygen Saturation 98.2 % (95-100); ABG PCO2 34.4 MM HG (35-48); ABG PH 7.384 (7.35-7.45); ABG TCO2 18.7 MMOL/L (23-27); Allen Test Positive; Pt O2 Delivery Device Other
--- NOTE | 2016-08-09 10:07 | General Surgery Progress Note ---
Assessment and Plan (1) Abscess of abdominal wall Status: Acute Assessment and plan: 08/05/2016 stable post op debridement/drainage of abdominal wall/PEG site. We will continue VAC and await final cultures. She will need VAC change next week, probably Sunday and Sunday. Hopefully we can get the area cleaned and free of infection, and then perform delayed closure around the PEG. 08/06/2016 Patient continues to be stable postop extensive debridement of anterior abdominal wall PEG site. Cultures are emerging; she is on empiric antibiotics that should give her good coverage. We will plan to change the wound VAC on Sunday or Sunday and reevaluate the wound. Nurses tell me that TPN will be initiated today; we would like to allow the new PEG tube several more days to become well seated before using, however we have good confirmation of placement via x-rays taken at the time of surgery,so there should be no complication after a short healing period. 08/09/16 Open abdominal wound from infected PEG site is stable. There doesn't seem to be any further progression from the infection and no additional skin loss. VAC was changed without difficulty and PEG is seated well. We will plan to keep TPN and hold tube feedings for another week, then begin slow/low volume tube feedings. Her Bilateral lower extremity and sacral wounds are stable. OK for transfer to [facility] today. We will plan delayed closure of the skin next Sunday as outpatient at [facility]. She's tolerating weaning well, and the delayed skin wound closure next week could easiily be done with LMA/local anesthesia. Current Visit: Yes Subjective Patient reports: Present: other (Awake and responsive on vent.) Exam - Constitutional Vitals: Period Temp Pulse Resp BP Sys/Garcia Pulse Ox Last 24 Hr 97.0 F-98.5 F 76-100 14-25 96-153/40-75 97-100 General appearance: no acute distress - Respiratory Respiratory exam: Present: rhonchi. Absent: wheezes - GI/Abdominal GI/Abdominal exam: Present: normal bowel sounds, other (Abdominal incision is examined today during VAC change-no further necrotic tissue is seen. There is no erythema of the skin, no ischemia or skin loss. PEG is seated well without seepage. She is not unusually tender to touch. VAC was replaced without difficulty. ) - Anus/Rectum Anus/Rectum: other (Sacral area with stable excoriation. ) Results - Labs CBC & BMP: 08/09/16 04:51 08/09/16 Unknown Lab Results: I have reviewed the past 24 hour labs Quality Measures - VTE Contraindication to Pharmacological VTE Prophylaxis: High Risk of Bleeding
--- NOTE | 2016-08-09 10:08 | Pulmonology Progress Note ---
Pulmonary - PN: Subj Interval history: This 80-year-old black female who was a hospice patient until the family changed her mind just prior to this admission. I saw in pulmonary consultation on 08/04/2016. My impressions were. 1.Acute lactic acidosis with a severe metabolic acidosis most likely secondary to hypotension and sepsis 2. Probable abdominal wall abscess near PEG tube site. See Dr. Teixeira surgery note. 3.Acute on chronic renal failure 4. Acute respiratory failure for oxygen. Required intubation mechanical ventilation. 5. Infectious and ischemic lesions of fingers and toes. See Dr. Mullins's note. 6. Recent hospice care 7. History of dementia and schizophrenia 8. History of seizure disorder 9. Diabetes mellitus 10. Hypothyroidism. 08/07/2016. This patient is undergone abdominal surgery. She had drainage of abdominal wall abscess. She will have follow-up surgery a week from tomorrow. Today's chest x-ray shows left perihilar infiltrates and left lower lung atelectasis along with some mild atelectasis at the medial base of the right lower lung. These reasons patient was evaluated with fiberoptic bronchoscopy. She had bilateral lavages. She had mild to moderate erosive friable nonstenotic bronchitis in both lower lungs. The erosive changes probably represent an element of aspiration there is probably bacterial superinfection. Multiple studies were submitted. MRSA was isolated from her nares. Her abdominal wound has grown E. coli, enterococcus faecalis and Marly tropicalis. Urine has grown VRE. I have consulted Dr. Yan to see this patient and infectious disease consultation. Patient's on stage IV to weaning protocol. Her ABGs on mechanical ventilation FiO2 35% shows a pH of 7.344, PCO2 of 33, PO2 of 140 and a bicarb of 19. Sodium is high at 151, potassium is low at 3.2, chloride is high at 121. White blood cell count is 15,700 with 83 segs. H&H is 9.2/28.5. Total protein and albumin are low at 4.41.4 respectively. Labs been reviewed and medicines have been reviewed. 08/08/2016. This patient's on stage IV to weaning protocol. Her chest x-ray has improved. Left perihilar infiltrate is nearly resolved. There continue to be some markings at the right base. Endotracheal tube is in good position. I see nothing to suggest congestive heart failure. She is for placement of a wound VAC tomorrow. Tomorrow morning I am going to give her 1 hour T-tube trial and recheck her ABGs and reevaluate at that point. Patient is certainly more awake and alert. She is definitely not cooperative. Fiberoptic bronchoscopy specimens are negative so far.ABGs on FiO2 35% and mechanical ventilation show a pH of 7.37. PCO2 is 31. PO2 is 145. Bicarb is 19 per. White count is 10,500. H&H is 8.7/27.3. Potassium is low at 3.1. Sodium is 144. Creatinine is 0.9 with a BUN of 30. Labs been reviewed. Medicines have been reviewed. 08/09/2016. Chest x-ray shows a faint right lower lung infiltrate. Previously noted left perihilar infiltrate has resolved. The right lower lateral chest is not well seen. Bronchoscopy specimens from 08/07/2016 so far only growing yeast. ABGs on T-tube and FiO2 30% shows a pH of 7.38 PCO2 34.4 PO2 of 109 a bicarb of 21.1. Will advance to weaning protocol to stage that includes T-tube trials during the day. Sodium is 149. Potassium is 3.3. Creatinine 0.70 with a BUN of 26. White blood cell count is dropped to 9267 segs 10 lymphs and 10 monos. H&H is 8.6/26.6. Overall this patient is making good improvement. See surgery note from RADHIKA Hollis. Wound VAC was placed today. Additional plans are outlined in her note. This patient is for possible transfer to LTAC today. Physical exam. Vital signs. See below Neurologic. Patient is arousable she moves all fours. Face. No swelling of the lips and tongue. Neck. No meningismus. Chest. Coarse large airway congestion Heart. Rate is 100. I do not hear a gallop Abdomen. Postsurgical Extremities. Nothing to suggest deep venous thrombophlebitis. Multiple wounds of the fingers and toes and feet Lymphatics. No submandibular cervical supraclavicular adenopathy. The remainder the exam is noncontributory Plan. 08/04/2016 1. Mechanical ventilation weaning protocol 2. Physical therapy consultation based on mechanical ventilation protocol 3. Doppler venograms of the lower extremities 4. Antibiotics noted. This includes meropenem Flagyl and vancomycin. 5. Monitor renal function. Consider renal consultation. 6. I have increased patient's fluid to D5 normal saline at 125 cc/h 7. Daily chest x-rays ABGs and lab. 8. See orders 08/07/2016 1. Infectious disease consultation 2. Stage IV weaning protocol and advance as rapidly as possible 3. See fiberoptic bronchoscopy report a procedure done today. Check results. 4. Daily chest x-ray, ABGs and lab. 5. Follow-up surgery for closure is planned 08/14/2016 6. See 08/08/2016. Home Medications #1 see today's note above #2. Infectious disease consultation is pending. 3. T-tube trial tomorrow morning. 4. Wound VAC placement 08/09/2016. 1. See today's note above. 2. Increased T-tube Exam (Progress Note) - Constitutional Vitals: Period Temp Pulse Resp BP Sys/Garcia Pulse Ox Last 24 Hr 97.0 F-98.5 F 76-100 14-25 96-153/40-75 97-100 Results - Labs CBC & BMP: 08/09/16 04:51 08/09/16 Unknown
[2016-08-09] MEDS: SKIN HEALING OINT (AQUAPHOR) 50 GM TUBE TOP SCH (10:11)
[2016-08-09] MEDS: MUPIROCIN 2% OINT 22 GM TUBE TOP SCH (10:12)
[2016-08-09] MEDS: PANTOPRAZOLE 40 MG VIAL IV SCH (10:12)
[2016-08-09] MEDS: ENOXAPARIN 40 MG/0.4 ML SYRINGE SUBCUT SCH (10:12)
[2016-08-09] MEDS: ZINC OXIDE TOP SCH (10:13)
[2016-08-09] MEDS: [UNRECOGNIZED DRUG - OTHER] TOP SCH (10:13)
--- NOTE | 2016-08-09 10:18 | Infectious Disease Progress ---
Assessment and Plan (1) Bacteriuria, asymptomatic Status: Acute Assessment and plan: The associated urinalysis was negative for pyuria therefore this VRE represents colonization. Treatment is not indicated. Current Visit: Yes (2) Abscess of abdominal wall Status: Acute Assessment and plan: Abdominal infection due to migrated PEG tube. Multiple organisms isolated. Clinically the patient is doing better following surgery with washout. Recommendations: Continue Unasyn and fluconazole along with wound care Current Visit: Yes (3) Bipolar disorder Status: Chronic Current Visit: No Qualifiers: Current bipolar episode type: depressed Current episode severity: unspecified (4) Dementia Status: Chronic Current Visit: No (5) Diabetes Status: Chronic Current Visit: No Qualifiers: Diabetes mellitus type: type 2 Diabetes mellitus complication status: with circulatory complication Diabetes mellitus complication detail: with peripheral angiopathy without gangrene Diabetes mellitus terminal gauger insulin use : with terminal gauger use Qualified Code(s): E11.51 - Type 2 diabetes mellitus with diabetic peripheral angiopathy without gangrene; Z79.4 - prison (current ) use of insulin (6) Hypertension Status: Chronic Current Visit: No Qualifiers: Hypertension type: essential hypertension Qualified Code(s): I10 - Essential (primary) hypertension (7) Schizophrenia Status: Chronic Current Visit: No Qualifiers: Schizophrenia type: unspecified Qualified Code(s): F20.9 - Schizophrenia, unspecified Infectious Disease - PN: Subj Interval history: Patient doing relatively okay, she is not a T-tube trials today and is tolerating it well so far. No fever. She remains agitated requiring restraints. Infectious Disease Exam (PN) - Constitutional Vitals: Temp Pulse Resp BP Pulse Ox 97.0 F L 97 H 18 133/68 98 08/09/16 06:00 08/09/16 06:00 08/09/16 06:00 08/09/16 06:00 08/09/16 06:00 General appearance: no acute distress Exam: General appearance: Comfortable on T-tube trial - Eye Eye exam: Present: EOMI. no icterus Pupils: Present: CLEMENT - ENT ENT exam: ET tube in situ - Respiratory Respiratory exam: vesicular BS, no crepitations or wheezes - Cardiovascular Cardiovascular exam: regular rate and rhythm, no murmurs - GI/Abdominal GI/Abdominal exam: Abdominal wound with VAC, PEG tube present, normal bowel sounds, soft, non-tender, no organomegaly or mass - Extremities Exam Extremities exam: no edema - Skin Skin exam: no rash Results - Labs CBC & BMP: 08/09/16 04:51 08/09/16 Unknown Lab Results: I have reviewed the past 24 hour labs Quality Measures - VTE Contraindication to Pharmacological VTE Prophylaxis: High Risk of Bleeding
--- NOTE | 2016-08-09 11:05 | Discharge Summary ---
Hospital Course - Hospital Course Hospital Course: Ms. Olea was admitted to the intensive care unit with a dislodged PEG tube and an area of the abscess and infection related to the dislodged tube. She was taken to the operating room for debridement and wound VAC placement. She remains on the ventilator but has been weaned off pressors. She is receiving IV antibiotics and is improving. She is receiving fluconazole and Unasyn and is being followed by Dr. Yuriy Cook. 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 She was on T piece trials today and is doing well and was being followed by Dr. Ibrahim during the course of the hospitalization. Dr. Mullins is her surgeon and plans to reevaluate her at [facility] on Sunday. Her wound VAC was changed today in anticipation of her discharge to [facility]. She has had no acute events over the last 48-72 hours. She is receiving TPN which should be continued until tube feeds can be initiated through the PEG tube. This will occur after she is cleared by Dr. Mullins who is managing her abdominal wall wound. - Time spent with patient Time with patient DS: Greater than 30 minutes (Total discharge time for this patient, including [id number] time, clinical documentation, medication reconciliation, and discharge planning was 45 minutes.) Diagnosis - Discharge Diagnosis (1) Abscess of abdominal wall Status: Acute (2) Severe sepsis Status: Acute (3) Severe malnutrition Status: Chronic (4) Anemia Status: Chronic (5) Status post insertion of percutaneous endoscopic gastrostomy (PEG) tube Status: Acute (6) Acute respiratory failure Status: Acute (7) UTI (urinary tract infection) Status: Ruled-out Discharge Plan - Discharge Data Disposition: Disch/Xfer to [facility] Condition at Discharge: Stable Discharge Diet: other (TPN until ok with Dr. Mullins for PEG use) Activity: as per physical therapy Contact your physician if you experience:: fever over 101, Nausea/Vomiting, Bleeding - Discharge Medications New Enoxaparin [Lovenox] 40 mg SUBCUT Q24H syringe Insulin Lispro [HumaLOG] See Protocol SUBCUT Q6HR unit Levothyroxine Inj [Synthroid Inj] 25 mcg IV DAILY@0700 vial Morphine Inj 2 mg IV Q4H PRN syringe PRN Reason: Pain Severe (8-10) Mupirocin 2% Oint [Bactroban 2% Oint] 1 applic TOP BID applic Pantoprazole Inj [Protonix Inj] 40 mg IV DAILY vial Ampicillin/Sulbactam [Unasyn] 3,000 mg IV Q6H vial Fluconazole Inj [Diflucan Inj] 100 mg IV Q24H Multivitamin Inj 10 ml IV .Q24H vial Skin Healing Oint (Aquaphor) [Aquaphor] 1 applic TOP DAILY applic Phenytoin Inj [Dilantin Inj] 100 mg IV Q8H vial Discontinued Donepezil [Aricept] 5 mg PEG BEDTIME Aspirin EC Tab 81 mg PEG DAILY Levothyroxine Tab [Synthroid Tab] 25 mcg PEG DAILY@0600 Pentoxifylline [TRENtal] 400 mg PEG TID Divalproex Sodium 250 mg PEG TID Insulin Lispro [HumaLOG] See Protocol SUBCUT Q6HR unit Ibuprofen Tab [Motrin Tab] 600 mg PEG Q6H PRN PRN Reason: Pain - Follow Up or Referral - Forms/Instructions Additional Discharge Instructions: The patient will be followed by her consultants at [facility]. Exam - Constitutional Vitals: Period Temp Pulse Resp BP Sys/Garcia Pulse Ox Last 24 Hr 97.0 F-98.5 F 76-100 14-25 96-159/40-77 97-100 Discharge Results Procedures and tests throughout hospitalization: Pending Orders 08/07/16 Bronchoalveolar Lavage C & GS Routine Fungal Culture w/ Prep Routine 08/09/16 09:00 Potassium Routine 08/10/16 04:00 XR chest 1V portable IN AM ABG [Arterial Blood Gas] IN AM Labs on day of discharge: Labs from last 24 hours 08/09/16 08/09/16 08/09/16 Unknown Unknown 07:56 WBC RBC Hgb Hct MCV MCH MCHC RDW Plt Count MPV Neut % (Auto) Lymph % (Auto) [place] % (Auto) Eos % (Auto) Baso % (Auto) Neut # (Auto) Lymph # (Auto) [place] # (Auto) Eos # (Auto) Baso # (Auto) Total Counted Immature Gran % Nucleated RBC % Immature Gran # Segmented Neutrophils Band Neutrophils Lymphocytes Monocytes Myelocytes Nucleated RBCs # Platelet Estimate Hypochromasia Anisocytosis Microcytosis ABG pH 7.384 ABG pCO2 34.4 L ABG pO2 109.0 H ABG HCO3 21.2 ABG Total CO2 18.7 L ABG O2 Saturation 98.2 ABG Base Excess -3.9 L FiO2 30.00 Sodium 149 H Potassium 3.3 L Chloride 119 H Carbon Dioxide 23 Anion Gap 10.3 BUN 26 H Creatinine 0.70 GFR Calculation 83 BUN/Creatinine Ratio 37.00 H Glucose 84 POC Glucose Calculated Osmolality 299.1 Calcium 7.3 L Phosphorus 2.1 L Magnesium 1.8 Prealbumin 8.2 L Triglycerides 267 H 08/09/16 08/09/16 08/09/16 06:16 05:39 04:51 WBC 9.2 RBC 2.87 L Hgb 8.6 L Hct 26.6 L MCV 92.7 MCH 30 MCHC 32.3 RDW 17.0 Plt Count 119 L MPV 12.0 Neut % (Auto) 67.4 Lymph % (Auto) 10.1 L [place] % (Auto) 10.4 Eos % (Auto) 1.2 Baso % (Auto) 0.2 Neut # (Auto) 6.2 Lymph # (Auto) 0.9 L [place] # (Auto) 1.0 H Eos # (Auto) 0.1 Baso # (Auto) 0.0 Total Counted 100 Immature Gran % 10.7 Nucleated RBC % 0.5 Immature Gran # 0.98 Segmented Neutrophils 71 Band Neutrophils 4 Lymphocytes 10 L Monocytes 13 Myelocytes 2 Nucleated RBCs # 0.05 Platelet Estimate Adequate Hypochromasia Slight Anisocytosis 1+ Microcytosis 1+ ABG pH ABG pCO2 ABG pO2 ABG HCO3 ABG Total CO2 ABG O2 Saturation ABG Base Excess FiO2 Sodium Potassium Chloride Carbon Dioxide Anion Gap BUN Creatinine GFR Calculation BUN/Creatinine Ratio Glucose POC Glucose 175 H 68 L Calculated Osmolality Calcium Phosphorus Magnesium Prealbumin Triglycerides 08/08/16 08/08/16 08/08/16 23:33 17:50 11:45 WBC RBC Hgb Hct MCV MCH MCHC RDW Plt Count MPV Neut % (Auto) Lymph % (Auto) [place] % (Auto) Eos % (Auto) Baso % (Auto) Neut # (Auto) Lymph # (Auto) [place] # (Auto) Eos # (Auto) Baso # (Auto) Total Counted Immature Gran % Nucleated RBC % Immature Gran # Segmented Neutrophils Band Neutrophils Lymphocytes Monocytes Myelocytes Nucleated RBCs # Platelet Estimate Hypochromasia Anisocytosis Microcytosis ABG pH ABG pCO2 ABG pO2 ABG HCO3 ABG Total CO2 ABG O2 Saturation ABG Base Excess FiO2 Sodium Potassium Chloride Carbon Dioxide Anion Gap BUN Creatinine GFR Calculation BUN/Creatinine Ratio Glucose POC Glucose 173 H 123 H 125 H Calculated Osmolality Calcium Phosphorus Magnesium Prealbumin Triglycerides Preliminary micro results at discharge 08/07/16 Unknown Bronchoalveolar Lavage Culture - Preliminary Bronchial Teo Lavage Yeast DS: Provider Date of admission: 08/03/16 22:15 Primary care physician: Carolynn Smith DO Attending physician on admission: Nick Solorzano MD Consults: 08/03/16 22:25 Consult to Anesthesiology [CONS] Routine Consulting Provider: Reason for Anesthesiology: Pre-op Clearance 08/04/16 01:18 Consult to Physician [CONS] Routine Comment: Consulting Provider: Ney Maya Consult to Specialist Group: Pulmonology When should Consulting Provider be notified: In am 08/04/16 11:37 Consult to Wound Care - North [CONS] Routine Reason for Wound Care: Wound Care Management Consult Comment: Abdominal wound VAC 08/07/16 09:00 Consult to Case Mgmt/Social Srvs [CONS] Routine Reason for Case Mgmt/Social Srvs: Discharge Planning Consult Comment: Pt resides in detention/?enrolled in hospice care 08/07/16 10:37 Consult to Physician [CONS] Routine Comment: Abd abscess/UTI with mult. + cxs Consulting Provider: Wanda Mitchell Consulting Provider Notified: Yes Consult to Specialist Group: Infectious Disease Person Notified: adryan Date Notified: 08/08/16 Time Notified: 08:55 08/07/16 16:19 Consult to Case Mgmt/Social Srvs [CONS] Routine Reason for Case Mgmt/Social Srvs: LTAC 08/08/16 14:46 Consult to Dietitian [CONS] Routine Reason for Dietitian: TPN/PPN-Initiate/Manage Discharging clinician: Rosa Elena Calhoun MD Expected date of discharge: 08/09/16
[2016-08-09] MEDS ORDERED: PHENYTOIN 100 MG/2 ML VIAL IV SCH (11:30)
[2016-08-09] MEDS: FLUCONAZOLE INJ 100 MG in IV BAG 1 EACH IV SCH (12:36)
[2016-08-09] MEDS: FAT EMULSION 20% 250 ML IV SCH (14:13)
[2016-08-09] MEDS: LACTATED RINGERS 1,000 ML IV SCH (16:27)
[2016-08-09 16:33] VITALS: BP 118/56
== END 2016-08-09 16:00 | DRG 356 ==
LOC: EDUNIT# → EDBD → N.ED 18:08 → N.EDINP 22:15 → SUATTDRO 22:15 → N.ICU 23:06
PROVIDERS: ADMIT Internal Medicine Infectious Disease; ATTEND Family Medicine